=== PATIENT | male | born 1945 | race Caucasian/White ===

== ENCOUNTER 2021-07-26 17:43 | Inpatient (IN) | payer OTHER, MEDICAID, SELFPAY ==
[~2021-07-26] VITALS: Ht 185.4 cm; Wt 84.5 kg
[2021-07-26 17:50] VITALS: BP_SYST 91
--- NOTE | 2021-07-26 17:50 | NUR ---
Patient to ER bed 2 to gown for evaluation. Side rails up. Report given to Rm FONSECA.
--- NOTE | 2021-07-26 17:52 | NUR ---
ER Dr. Valencia at bedside examining patient.
[2021-07-26 19:16] LABS: BASOPHILS # (AUTO) 0.1 K/uL (0.0-0.2); BASOPHILS % (AUTO) 0.4 % (0.0-2.0); EOSINOPHILS # (AUTO) 0.1 K/uL (0.0-0.4); EOSINOPHILS % (AUTO) 0.7 % (0.0-4.0); HEMATOCRIT 36.3 % (36-54); HEMOGLOBIN 11.6 g/dL (14.0-18.0); LYMPHOCYTES # (AUTO) 0.6 K/uL (1.0-5.5); MEAN CORPUSCULAR HEMOGLOBIN 29 pg (27-31); MEAN CORPUSCULAR HGB CONC 32 % (32-36); MEAN CORPUSCULAR VOLUME 91 fL (79.0-98.0); MONOCYTES # (AUTO) 0.6 K/uL (0.0-1.0); MONOCYTES % (AUTO) 3.9 % (1.7-9.3); NEUTROPHILS # (AUTO) 14.3 K/uL (1.8-7.7); PLATELET COUNT (AUTO) 376 K/uL (130-430); RED BLOOD CELL COUNT(AUTO) 3.98 MIL/uL (4.2-6.2); WHITE BLOOD COUNT (AUTO) 15.6 K/uL (4.8-10.8)
--- NOTE | 2021-07-26 19:28 | NUR ---
Assumed total care of patient. Per baseline patient AAO x1, BIB for SOB and respiratory distress. Patient on 15L NRB with O2 sat of 100%. Patient nonverbal and withdrawals from painful stimuli. Patient has hilliard catheter placed, draining urine to gravity, bag hanging below bladder. Patient has g-tube in place. Patient has 18g to LAC. IV site patent, no signs of infiltration noted. Patient on foundry molder, VSS, tachypneic, increased work of breathing. Will continue to monitor.
[2021-07-26] MEDS ORDERED: CEFEPIME 2 GM in D5W 100 ML IV ONE (19:30)
[2021-07-26] MEDS ORDERED: VANCOMYCIN HCL 2,000 MG in NS 250 ML IV ONE (19:30)
--- NOTE | 2021-07-26 19:32 | NUR ---
Dr. Valencia at bedside for ultrasound
[2021-07-26 19:41] LABS: ALANINE AMINOTRANSFERASE 38 U/L (12-78); ANION GAP 6 (5-15); ASPARTATE AMINOTRANSFERASE 41 U/L (10-37); CALCIUM 10.5 mg/dL (8.4-11.0); POTASSIUM 4.4 mmol/L (3.5-5.1); SODIUM SERUM 128 mmol/L (136-145); TOTAL BILIRUBIN 0.7 mg/dL (0.0-1.0)
[2021-07-26 19:42] LABS: CHLORIDE 97 mmol/L (98-107); CREATININE 1.32 mg/dL (0.55-1.30); GLUCOSE 166 mg/dL (70-99); UREA NITROGEN, BLOOD 59 mg/dL (8-21)
[2021-07-26] MEDS ORDERED: NACL 0.9% 1,000 ML IV ONE (19:45)
[2021-07-26] MEDS ORDERED: CEFEPIME 1 GM/VIAL (MAXIPIME) ONE (19:45)
--- NOTE | 2021-07-26 19:51 | NUR ---
Blood cultures drawn, prior to administration of antibiotic.
--- NOTE | 2021-07-26 20:06 | NUR ---
Patient placed on nasal cannula 6L to assess how he tolerates per MD order.
--- NOTE | 2021-07-26 20:08 | NUR ---
Patient swabbed for covid and MRSA. Samples brought to the lab.
--- NOTE | 2021-07-26 20:14 | NUR ---
Patient unable to tolerate 6L nasal cannula, O2 saturation 86-88%. Patient placed back on NRB at 10L. Will continue to monitor.
--- NOTE | 2021-07-26 20:16 | NUR ---
Patient's code status is Full code paperwork completed and placed in chart.
[2021-07-26 20:24] LABS: BILIRUBIN,URINE NEGATIVE (NEGATIVE); BLOOD, URINE 2+ (NEGATIVE); CLARITY/URINE CLEAR (CLEAR); COLOR,URINE YELLOW (YELLOW); GLUCOSE,URINE NEGATIVE (NEGATIVE); KETONES,URINE NEGATIVE (NEGATIVE); LEUKOCYTE ESTERASE ,URINE 1+ (NEGATIVE); NITRITE, URINE NEGATIVE (NEGATIVE); PROTEIN URINE 1+ (NEGATIVE); UROBILINOGEN,URINE 0.2 (0.2-1.0)
--- NOTE | 2021-07-26 20:37 | NUR ---
Patient will be admitted to care of Dr. Tellez. Admitted to ICU unit. Will go to room pending. Belongings list completed. Complete and up to date summary report printed. SBAR report to be given at bedside with opportunity for questions.
[2021-07-26] MEDS ORDERED: ALBU2.5V7 INH (20:54)
[2021-07-26] MEDS ORDERED: POTA20PA30 GT (20:54)
[2021-07-26] MEDS ORDERED: SACU1TAB GT (20:54)
[2021-07-26] MEDS ORDERED: FINA5TAB11 GT (20:54)
[2021-07-26] MEDS ORDERED: CYAN500T9 GT (20:54)
[2021-07-26] MEDS ORDERED: FURO80TA86 GT (20:54)
[2021-07-26] MEDS ORDERED: MOM GT (20:54)
[2021-07-26] MEDS ORDERED: NEU300 GT (20:54)
[2021-07-26] MEDS ORDERED: DOXA2TAB GT (20:54)
[2021-07-26] MEDS ORDERED: ESCI-6 GT (20:54)
[2021-07-26] MEDS ORDERED: SPIR25TA GT (20:54)
[2021-07-26] MEDS ORDERED: PANT40TA45 GT (20:54)
[2021-07-26] MEDS ORDERED: BISA10SU61 RC (20:54)
[2021-07-26] MEDS ORDERED: MUC10RT NEB (20:54)
[2021-07-26] MEDS ORDERED: LACT1CAP79 GT (20:54)
[2021-07-26] MEDS ORDERED: ACET-73 GT (20:54)
[2021-07-26] MEDS ORDERED: ACET325C5 GT (20:54)
--- NOTE | 2021-07-26 20:55 | NUR ---
Medication reconciliation completed with information provided by [facility]. Any prior medication reconciliation on file was reviewed and corrected.
[2021-07-26] MEDS ORDERED: ONDANSETRON HCL 4 MG/2 ML VIAL IVP PRN (21:00)
[2021-07-26] MEDS ORDERED: ACETAMINOPHEN 325 MG TABLET PO PRN (21:00)
[2021-07-26] MEDS ORDERED: DOCUSATE SODIUM 100 MG CAPSULE PO PRN (21:00)
[2021-07-26] MEDS ORDERED: HYDROcodone/ACETAMIN 5-325 MG TAB (NORCO/ VICODIN) PO PRN (21:00)
[2021-07-26] MEDS ORDERED: VANCOMYCIN HCL 1000 MG/VIAL IV ONE ×2 (21:13→21:31)
[2021-07-26 21:27] LABS: FREE T4 (FREE THYROXINE) 1.1 ng/dl (0.8-1.5); PHOSPHORUS 4.6 mg/dL (2.7-4.5); THYROID STIMULATING HORMONE 0.84 uIu/mL (0.36-3.74)
[2021-07-26] MEDS: NACL 0.9% 1,000 ML IV SCH (21:34)
--- NOTE | 2021-07-26 21:34 | NUR ---
IV antibiotics and IV fluids initiated per MD orders. IV site patent. No signs of infiltration noted.
[2021-07-26 21:43] LABS: WBC,URINE 20-50 /HPF (0-3)
[2021-07-26 21:44] LABS: BACTERIA,URINE MANY /HPF (None Seen)
[2021-07-26 21:45] LABS: MUCUS,URINE None Seen /LPF (None Seen)
--- NOTE | 2021-07-26 22:13 | NUR ---
Patient resting quietly. No acute distress noted. Vital signs within normal range, on cardic monitor. IV fluids infusing at prescribed rate. Will continue to monitor.
--- NOTE | 2021-07-26 23:13 | NUR ---
Patient resting quietly. No acute distress noted. Vital signs within normal range, on cardic monitor. IV fluids infusing at prescribed rate. Will continue to monitor.
[2021-07-27] VITALS (24 sets, daily range): BP systolic 84–131
--- NOTE | 2021-07-27 00:52 | NUR ---
Patient repositioned in bed, head of bed elevated, patient on intake worker, VSS, breathing even and unlabored, tachypneic. No signs of acute distress noted.
--- NOTE | 2021-07-27 01:00 | NUR ---
Patient will be going to ICU 3
--- NOTE | 2021-07-27 01:26 | NUR ---
Transfer to ICU via ACLS protocol. Licensed nurse present. IV present no signs or symptoms of infiltration.
--- NOTE | 2021-07-27 05:00 | NUR ---
PATIENT NOTED TO BE HAVING A HYPOXIC EVENT WITH UNCOORDINATED JERKING MOVEMENTS DOMINANT TO THE RIGHT SIDE FOR APPROXIMATELY 1 MINUTE DURING LINEN CHANGE STATUS POST BM. WILL RECOMMEND NEURO CONSULT TO PCP. CONTINUED TO MONITOR FOR REPEAT EVENT.
--- NOTE | 2021-07-27 05:41 | NUR ---
Nutrition Update Omar Scale 13 noted. Pt admitted for Hypoxia Diet: No diet order BMI: 23.5 kg/m2 RD to follow per nutrition care standards.
[2021-07-27] MEDS: NACL 0.9% 1,000 ML IV SCH ×2 (07:00→12:15)
--- NOTE | 2021-07-27 07:15 | NUR ---
Received report from endorsing maintenance technician 3rd shift RN for continuity of care. Patient lying on bed with IVF of NS @100 mL/hr. Nonrebreather mask @15L. Powell catheter in place draining to gravity, rosalinda urine in color. Gtube clamped. Checked vital signs temperature 96.1, respiration 34, heart rate 70, blood pressure 93/50, SpO2 100%. Bed locked @ lowest position, fall and safety precaution is in place. Will continue to monitor.
--- NOTE | 2021-07-27 07:15 | NUR ---
received report from endorsing electric motor tester RN for continuity of care, patient lying on bed with an IVF of NS @ 100 mls/hr.vital signs T 96.1, heart rate 71, respiratory rate 29, oxygen saturation 100 and blood pressure 88/55. on Non rebreather mask 15L. Powell catheter in place draining to gravity, yellow urine in color.bed locked at lowest position. fall and safety precaution in place.
[2021-07-27 07:48] LABS: BASOPHILS # (AUTO) 0.1 K/uL (0.0-0.2); BASOPHILS % (AUTO) 0.5 % (0.0-2.0); EOSINOPHILS # (AUTO) 0.1 K/uL (0.0-0.4); EOSINOPHILS % (AUTO) 0.9 % (0.0-4.0); LYMPHOCYTES # (AUTO) 0.6 K/uL (1.0-5.5); LYMPHOCYTES % (AUTO) 4.4 % (20.5-51.5); MEAN CORPUSCULAR HEMOGLOBIN 29 pg (27-31); MEAN CORPUSCULAR HGB CONC 32 % (32-36); MEAN CORPUSCULAR VOLUME 90 fL (79.0-98.0); MONOCYTES # (AUTO) 0.5 K/uL (0.0-1.0); MONOCYTES % (AUTO) 3.9 % (1.7-9.3); NEUTROPHILS # (AUTO) 11.7 K/uL (1.8-7.7); NEUTROPHILS % (AUTO) 90.3 % (40.0-70.0); PLATELET COUNT (AUTO) 306 K/uL (130-430); RED BLOOD CELL COUNT(AUTO) 3.46 MIL/uL (4.2-6.2); RED CELL DISTRIBUTION WIDTH 18.1 % (9.0-15.0)
[2021-07-27 08:25] LABS: ALANINE AMINOTRANSFERASE 28 U/L (12-78); ALBUMIN 1.6 g/dL (3.4-4.8); ANION GAP 10 (5-15); ASPARTATE AMINOTRANSFERASE 31 U/L (10-37); CALCIUM 9.8 mg/dL (8.4-11.0); CHLORIDE 103 mmol/L (98-107); CREATININE 1.12 mg/dL (0.55-1.30); GLUCOSE 100 mg/dL (70-99); POTASSIUM 3.8 mmol/L (3.5-5.1); SODIUM SERUM 135 mmol/L (136-145); TOTAL BILIRUBIN 0.6 mg/dL (0.0-1.0); UREA NITROGEN, BLOOD 53 mg/dL (8-21)
--- NOTE | 2021-07-27 08:53 | NUR ---
CONSULTATION PAGED/CALLED Reason for Consultation: sepsis, acute kidney injury Person Who was Notified: exchange Consulting Physician: Dr. Stratton Dry Roller Specialty: nephrology Ordering Physician: Eunice
[2021-07-27] MEDS ORDERED: MILK OF MAGNESIA 30 ML UDC GT SCH (09:15)
[2021-07-27] MEDS ORDERED: NON-FORMULARY MEDICATION (Acetaminophen 2 CAP) GT PRN (09:15)
[2021-07-27] MEDS ORDERED: BISACODYL 10 MG/SUPPOSITORY RC PRN (09:15)
[2021-07-27] MEDS ORDERED: ONDANSETRON HCL 4 MG/2 ML VIAL IVP PRN (09:15)
[2021-07-27] MEDS ORDERED: LORazepam 2 MG/ML VIAL IVP PRN (09:15)
[2021-07-27] MEDS: CEFEPIME 2 GM in D5W 100 ML IV SCH (12:15)
[2021-07-27] MEDS: NOREPINEPHRINE BITARTRATE 4 MG in NS 246 ML IV PRN (13:25)
[2021-07-27] MEDS: NORMAL SALINE 5 ML DISP.SYRIN IVF SCH ×2 (14:00→21:20)
[2021-07-27] MEDS ORDERED: NORMAL SALINE 5 ML DISP.SYRIN IVF SCH (14:00)
[2021-07-27] MEDS: ALBUTEROL SULFATE 0.083% 2.5 MG/3 ML VIAL.NEB INH SCH ×2 (14:46→19:54)
--- NOTE | 2021-07-27 14:50 | NUR ---
Dr. Emerson is at bedside assessing the patient, verbal reports given.
--- NOTE | 2021-07-27 17:27 | NUR ---
Dr. Arvizu at bedside assessing the patient.
[2021-07-27] MEDS: GABAPENTIN 300 MG CAPSULE GT SCH (18:34)
[2021-07-27] MEDS: SACUBITRIL/VALSARTAN 24 MG-26 MG 1 TABLET PO SCH (21:20)
[2021-07-28] VITALS (27 sets, daily range): BP systolic 90–127
[2021-07-28] MEDS: NACL 0.9% 1,000 ML IV SCH ×2 (03:00→12:46)
--- NOTE | 2021-07-28 03:02 | NUR ---
PAGED FOR ORDERS DIALED: [phone] SPOKE TO: BERNARDO
--- NOTE | 2021-07-28 04:12 | NUR ---
PAGED MD GARNICA RUG SETTER VELVET TO REPORT HYPOXIC EVENT NOTED IN PATIENT. SPO2 IN THE MID TO LOW 80'S. STAT ABG RESULTS REPORTED. ORDERED BIPAP WITH SETTINGS AT 12/5. NO FURTHER ORDERS. WILL CONTINUE TO MONITOR CLOSELY.
[2021-07-28] MEDS: NORMAL SALINE 5 ML DISP.SYRIN IVF SCH ×3 (05:16→21:49)
[2021-07-28 06:49] LABS: BASOPHILS % (AUTO) 0.3 % (0.0-2.0); EOSINOPHILS # (AUTO) 0.1 K/uL (0.0-0.4); EOSINOPHILS % (AUTO) 0.5 % (0.0-4.0); HEMATOCRIT 33.4 % (36-54); HEMOGLOBIN 10.7 g/dL (14.0-18.0); LYMPHOCYTES # (AUTO) 0.5 K/uL (1.0-5.5); LYMPHOCYTES % (AUTO) 3.5 % (20.5-51.5); MEAN CORPUSCULAR HEMOGLOBIN 29 pg (27-31); MEAN CORPUSCULAR HGB CONC 32 % (32-36); MEAN CORPUSCULAR VOLUME 91 fL (79.0-98.0); MONOCYTES # (AUTO) 0.5 K/uL (0.0-1.0); MONOCYTES % (AUTO) 3.5 % (1.7-9.3); NEUTROPHILS # (AUTO) 12.5 K/uL (1.8-7.7); NEUTROPHILS % (AUTO) 92.2 % (40.0-70.0); PLATELET COUNT (AUTO) 358 K/uL (130-430); RED BLOOD CELL COUNT(AUTO) 3.67 MIL/uL (4.2-6.2); RED CELL DISTRIBUTION WIDTH 17.9 % (9.0-15.0); WHITE BLOOD COUNT (AUTO) 13.6 K/uL (4.8-10.8)
[2021-07-28 07:14] LABS: ALANINE AMINOTRANSFERASE 23 U/L (12-78); ALBUMIN 1.7 g/dL (3.4-4.8); ANION GAP 10 (5-15); ASPARTATE AMINOTRANSFERASE 32 U/L (10-37); CALCIUM 10.4 mg/dL (8.4-11.0); CHLORIDE 106 mmol/L (98-107); CREATININE 0.98 mg/dL (0.55-1.30); GLUCOSE 100 mg/dL (70-99); POTASSIUM 3.9 mmol/L (3.5-5.1); SODIUM SERUM 138 mmol/L (136-145); TOTAL BILIRUBIN 0.5 mg/dL (0.0-1.0); UREA NITROGEN, BLOOD 43 mg/dL (8-21)
[2021-07-28] MEDS: ALBUTEROL SULFATE 0.083% 2.5 MG/3 ML VIAL.NEB INH SCH ×3 (07:25→19:10)
--- NOTE | 2021-07-28 07:26 | NUR ---
received bedside report from endorsing table games shift manager RN for continuity of care, patient lying on bed with an IVF of NS @ 100, Levophed @ 0.08 mcg/kg/min on IPAP 07/04 rate of 20, 100, patient vital signs heart rate 78, respiratory rate 39, oxygen saturation 96 and blood pressure 110/54. Powell catheter in place rosalinda urine , bed locked at lowest position, fall and safety precaution in place, will continue to monitor.
[2021-07-28] MEDS: ACETYLCYSTEINE 10% 4 ML VIAL (RT) INH SCH (07:28)
--- NOTE | 2021-07-28 07:28 | NUR ---
RCV'D PT ON BIPAP. CALLED MD GARNICA TO VERIFY THAT MD CARCAMO WANTS PT ON BIPAP. PT DOES NOT COMMUNICATE. RN TRENT IN ROOM . PT JUST RESPONSIVE TO PAINFUL STIMULI. WAITING FOR CALL BACK.
--- NOTE | 2021-07-28 08:09 | NUR ---
Dr. Arvizu is at the bedside assessing the patient,,changed from BIPAP to non rebreather mask at [address] Arvizu. patient vitals heart rate 74, oxygen saturation 100, respiratory rate 26, blood pressure 132/67
--- NOTE | 2021-07-28 08:09 | NUR ---
MD GIBBS IN ROOM WITH PATIENT. PER MD GIBBS TO TAKE BIPAP OFF PATIENT IS NOT AWAKE AND IS ALTERED. RAYMUNDO NEWMAN IN ROOM WELL TAKING ORDERS. PER MD GIBBS PT MIGHT ASPIRATE ON BIPAP. PLACED PT ON 15 L NRB. NEW ORDER TO GET AN ABG. WILL FOLLOW WITH ORDER.
[2021-07-28] MEDS: CITALOPRAM HYDROBROMIDE 20 MG TABLET GT SCH (08:38)
[2021-07-28] MEDS: DOXAZOSIN MESYLATE 2 MG TABLET GT SCH (08:38)
[2021-07-28] MEDS: LACTOBACILLUS RHAMNOSUS GG 1 CAP CAPSULE GT SCH (08:38)
[2021-07-28] MEDS: PANTOPRAZOLE SODIUM 40 MG TAB GT SCH (08:39)
[2021-07-28] MEDS: FINASTERIDE 5 MG TABLET (PROSCAR) GT SCH (08:50)
[2021-07-28] MEDS: SACUBITRIL/VALSARTAN 24 MG-26 MG 1 TABLET PO SCH ×2 (08:51→21:49)
[2021-07-28] MEDS ORDERED: FUROSEMIDE 80 MG TABLET GT SCH (09:00)
[2021-07-28] MEDS ORDERED: POTASSIUM CHLORIDE 20 MEQ/PKT PACKET GT SCH (09:00)
[2021-07-28] MEDS ORDERED: ESCITALOPRAM OXALATE 10 MG TABLET GT SCH (09:00)
[2021-07-28] MEDS ORDERED: SPIRONOLACTONE 25 MG TABLET (ALDACTONE) GT SCH (09:00)
--- NOTE | 2021-07-28 09:24 | NUR ---
ABG ORDERED BY MD GIBBS DONE. CRITICAL VALUES REPORTED TO RN. PT ON 100% FIO2 NRB MASK. WILL CONTINUE TO MONITOR.
--- NOTE | 2021-07-28 09:45 | NUR ---
RN GOT CALL BACK FROM MD GIBBS REGARDING ABG RESULTS. PER MD GIBBS NO NEW ORDERS AND KEEP PT ON NRB AND TITRATE FIO2 TOLERATED. WILL CONTINUE TO MONITOR PATIENT.
[2021-07-28] MEDS: CYANOCOBALAMIN 1000 mCg TABLET GT SCH (10:23)
[2021-07-28] MEDS: CEFEPIME 2 GM in D5W 100 ML IV SCH (11:16)
[2021-07-28] MEDS: NOREPINEPHRINE BITARTRATE 4 MG in NS 246 ML IV PRN (11:28)
[2021-07-28 13:23] LABS: ERYTHROCYTE SEDIMENTATION RATE 99 MM/HR (0-15)
--- NOTE | 2021-07-28 15:15 | NUR ---
RN NOTES DR. GARNICA SPOKE TO DAUGHTER ON THE PHONE RE: CODE STATUS DAUGHTER CONSENTED TO INTUBATION. WILL REQUEST ER/MD TO INTUBATE PATIENT.
[2021-07-28] MEDS ORDERED: PROPOFOL DRIP 100 ML IV PRN (15:30)
--- NOTE | 2021-07-28 15:45 | NUR ---
patient intubated at 1545 with 7.5 24in the Lipline . On AC rate of 16, tidal volume 500, 50% and PEEP of 5., patient vital signs heart rate 79, respiratory rate 25, oxygen saturation 93, and blood pressure 105/54. unable to take photographs of the wound because of patient condition, started to desaturated when repositioning .
--- NOTE | 2021-07-28 15:45 | NUR ---
PT INTUBATED WITH 7.5 A T24 AT [facility]. ETT IS IN PLACE AND SECURED WITH ANCHOR-FAST. ETT PLACEMENT CONFIRMED BY COLOR CHANGE, BREATH SOUNDS, AND CXR. PT INTUBATED BY DR BOWIE. RN RE AND RAYMUNDO SUN AT BEDSIDE. RT DEISI AND RT JOYCELYN AT BEDSIDE. VENT SETTINGS CHARTED. VENT CONNECTED TO RED OUTLET. ALARMS AUDIBLE. AMBU BAG AT BEDSIDE. NO DISTRESS NOTED. SPUTUM SAMPLE SENT TO LAB. WILL CONTINUE TO MONITOR PATIENT.
[2021-07-28 16:24] LABS: C-REACTIVE PROTEIN QUANT 26.2 mg/dL (0-0.5)
--- NOTE | 2021-07-28 16:28 | NUR ---
Wound Evaluation Attempted: Wound evaluation attempted, but was held secondary to hemodynamic instability and oxygen desaturation during turning per RAYMUNDO Barrow. Patient was intubated around 1545 per Brooks.
--- NOTE | 2021-07-28 16:55 | NUR ---
phone call to Dr. Ortiz about the laboratory result Positive MRSA of the nares, waiting for callback
[2021-07-28] MEDS: GABAPENTIN 300 MG CAPSULE GT SCH (17:26)
--- NOTE | 2021-07-28 18:13 | NUR ---
PAGED FOR ORDERS SPOKE TO: IRINEO
--- NOTE | 2021-07-28 18:18 | NUR ---
Dietitian Recommendations * When medically stable, initiate Vital AF 1.2 at 70 ml/hr, Alfonzo BID, Free Water Flush: 100 ml Q6h via GT Provides 2196 kcal, 126g protein, 1362 ml free water, and meeting 91% estimated calories need lower end, 104% estimated protein needs lower end. Please refer to nutrition assessment for details. Addendum: 07/28/21 at [address] Correction: * When medically stable, initiate Vital AF 1.2 at 70 ml/hr, Alfonzo BID, Free Water Flush: 100 ml Q6h via GT Provides 2196 kcal, 131g protein, 1362 ml free water, and meeting 91% estimated calories need lower end, 108% estimated protein needs lower end.
[2021-07-28] MEDS ORDERED: ETOMIDATE 20 MG/ 10 ML VIAL (AMIDATE) IVP ONE (19:01)
[2021-07-28] MEDS ORDERED: VECURONIUM BROMIDE 10 MG/VIAL (NORCURON) IV ONE (19:01)
--- NOTE | 2021-07-28 19:35 | NUR ---
PM SHIFT ASSESSMENT Patient is sedated on the vent, tolerating current vent settings. SR on monitor. Skin warm and dry. IV infusing to PIV, no S/S of infiltration. Powell catheter in place and draining to gravity. Safety precautions in place, call light within reach. Will continue to monitor.
--- NOTE | 2021-07-28 20:32 | NUR ---
PAGED FOR ORDERS SPOKE TO: GUEVARA
[2021-07-28] MEDS: LINEZOLID 300 ML IV SCH (21:49)
[2021-07-29] VITALS (28 sets, daily range): BP systolic 84–121
[2021-07-29 06:32] LABS: ANION GAP 11 (5-15); CALCIUM 10.6 mg/dL (8.4-11.0); CHLORIDE 104 mmol/L (98-107); CREATININE 1.16 mg/dL (0.55-1.30); GLUCOSE 91 mg/dL (70-99); POTASSIUM 3.5 mmol/L (3.5-5.1); SODIUM SERUM 137 mmol/L (136-145); UREA NITROGEN, BLOOD 45 mg/dL (8-21)
[2021-07-29 06:33] LABS: BASOPHILS # (AUTO) 0.1 K/uL (0.0-0.2); EOSINOPHILS # (AUTO) 0.2 K/uL (0.0-0.4); EOSINOPHILS % (AUTO) 2.1 % (0.0-4.0); HEMOGLOBIN 9.2 g/dL (14.0-18.0); LYMPHOCYTES # (AUTO) 0.7 K/uL (1.0-5.5); LYMPHOCYTES % (AUTO) 7.3 % (20.5-51.5); MEAN CORPUSCULAR HEMOGLOBIN 30 pg (27-31); MEAN CORPUSCULAR HGB CONC 33 % (32-36); MEAN CORPUSCULAR VOLUME 90 fL (79.0-98.0); MONOCYTES # (AUTO) 0.4 K/uL (0.0-1.0); MONOCYTES % (AUTO) 3.9 % (1.7-9.3); NEUTROPHILS # (AUTO) 8.4 K/uL (1.8-7.7); NEUTROPHILS % (AUTO) 85.7 % (40.0-70.0); PLATELET COUNT (AUTO) 339 K/uL (130-430); RED BLOOD CELL COUNT(AUTO) 3.11 MIL/uL (4.2-6.2); RED CELL DISTRIBUTION WIDTH 17.9 % (9.0-15.0); WHITE BLOOD COUNT (AUTO) 9.8 K/uL (4.8-10.8)
[2021-07-29] MEDS: NORMAL SALINE 5 ML DISP.SYRIN IVF SCH ×3 (06:37→22:29)
[2021-07-29] MEDS: ACETYLCYSTEINE 10% 4 ML VIAL (RT) INH SCH (07:21)
[2021-07-29] MEDS: ALBUTEROL SULFATE 0.083% 2.5 MG/3 ML VIAL.NEB INH SCH ×4 (07:21→19:20)
[2021-07-29 08:31] LABS: C-REACTIVE PROTEIN QUANT 33.8 mg/dL (0-0.5)
[2021-07-29] MEDS: DOXAZOSIN MESYLATE 2 MG TABLET GT SCH (09:00)
[2021-07-29] MEDS: LACTOBACILLUS RHAMNOSUS GG 1 CAP CAPSULE GT SCH (09:56)
[2021-07-29] MEDS: CITALOPRAM HYDROBROMIDE 20 MG TABLET GT SCH (09:56)
[2021-07-29] MEDS: PANTOPRAZOLE SODIUM 40 MG TAB GT SCH (09:56)
[2021-07-29] MEDS: LINEZOLID 300 ML IV SCH ×2 (09:59→20:19)
[2021-07-29] MEDS: CYANOCOBALAMIN 1000 mCg TABLET GT SCH (09:59)
[2021-07-29] MEDS: FINASTERIDE 5 MG TABLET (PROSCAR) GT SCH (09:59)
[2021-07-29] MEDS ORDERED: FUROSEMIDE 20 MG/2 ML VIAL IVP ONE (10:00)
[2021-07-29] MEDS: D5/0.45 NS 1,000 ML IV SCH ×2 (10:00→20:10)
[2021-07-29 11:23] LABS: ERYTHROCYTE SEDIMENTATION RATE 113 MM/HR (0-15)
[2021-07-29] MEDS: CEFEPIME 2 GM in D5W 100 ML IV SCH (11:33)
--- NOTE | 2021-07-29 19:44 | NUR ---
Patient daughter is now is POA. She lives in [place]. Multiple attempts made to reach her to obtain consent for PICC and other treatment modalities recommended by physician. To no avail, was unable to leave message as this options was not available.
--- NOTE | 2021-07-29 20:10 | NUR ---
BP LOW 88/47 LEVOPHED STARTED. AT 0.01 MCG/KG/MIN. THEN GRADUALLY TITRATED
[2021-07-29] MEDS: GABAPENTIN 300 MG CAPSULE GT SCH (20:11)
[2021-07-29] MEDS: FUROSEMIDE 20 MG/2 ML VIAL IVP SCH (20:19)
[2021-07-29] MEDS: NOREPINEPHRINE BITARTRATE 4 MG in NS 246 ML IV PRN (20:23)
[2021-07-30] VITALS (34 sets, daily range): BP systolic 72–164
--- NOTE | 2021-07-30 01:30 | NUR ---
0130 picc line nurse came inserte MICH PICC 2 LUMEN. CXR CONFIRMED.
--- NOTE | 2021-07-30 01:32 | NUR ---
DAUGHTER Spoke to patients daughter, consent given for PICCLINE and Bronchoscopy. Phone number also updated in the chart and email provided for further contact information. RN notified and piccline nurse here in unit.
[2021-07-30] MEDS: NORMAL SALINE 5 ML DISP.SYRIN IVF SCH ×3 (06:00→22:50)
--- NOTE | 2021-07-30 06:00 | NUR ---
0130 TUBE FEEDING HELP KEPT NPO POST MIDNIGHT FOR BRONCOSCOPY IN AM. O500 ALL CARES DONE, VSS AFEBRILE. CHG BATH DONE COMPLETE LINEN CHANGED SKIN CARE DONE.
[2021-07-30 06:56] LABS: BASOPHILS % (AUTO) 0.5 % (0.0-2.0); EOSINOPHILS # (AUTO) 0.3 K/uL (0.0-0.4); EOSINOPHILS % (AUTO) 3.4 % (0.0-4.0); HEMATOCRIT 28.9 % (36-54); HEMOGLOBIN 9.4 g/dL (14.0-18.0); LYMPHOCYTES # (AUTO) 0.6 K/uL (1.0-5.5); LYMPHOCYTES % (AUTO) 6.5 % (20.5-51.5); MEAN CORPUSCULAR HEMOGLOBIN 29 pg (27-31); MEAN CORPUSCULAR HGB CONC 33 % (32-36); MEAN CORPUSCULAR VOLUME 89 fL (79.0-98.0); MONOCYTES # (AUTO) 0.4 K/uL (0.0-1.0); MONOCYTES % (AUTO) 4.5 % (1.7-9.3); NEUTROPHILS # (AUTO) 7.5 K/uL (1.8-7.7); NEUTROPHILS % (AUTO) 85.1 % (40.0-70.0); PLATELET COUNT (AUTO) 286 K/uL (130-430); RED BLOOD CELL COUNT(AUTO) 3.25 MIL/uL (4.2-6.2); RED CELL DISTRIBUTION WIDTH 17.6 % (9.0-15.0); WHITE BLOOD COUNT (AUTO) 8.8 K/uL (4.8-10.8)
[2021-07-30 07:12] LABS: ALANINE AMINOTRANSFERASE 15 U/L (12-78); ALBUMIN 1.3 g/dL (3.4-4.8); ANION GAP 8 (5-15); ASPARTATE AMINOTRANSFERASE 24 U/L (10-37); CHLORIDE 104 mmol/L (98-107); CREATININE 0.98 mg/dL (0.55-1.30); GLUCOSE 148 mg/dL (70-99); SODIUM SERUM 134 mmol/L (136-145); TOTAL BILIRUBIN 0.3 mg/dL (0.0-1.0); UREA NITROGEN, BLOOD 34 mg/dL (8-21)
[2021-07-30] MEDS: ALBUTEROL SULFATE 0.083% 2.5 MG/3 ML VIAL.NEB INH SCH ×4 (07:32→21:48)
[2021-07-30] MEDS: ACETYLCYSTEINE 10% 4 ML VIAL (RT) INH SCH (07:33)
[2021-07-30] MEDS: PANTOPRAZOLE SODIUM 40 MG TAB GT SCH (09:00)
[2021-07-30] MEDS: CITALOPRAM HYDROBROMIDE 20 MG TABLET GT SCH (09:00)
[2021-07-30] MEDS: DOXAZOSIN MESYLATE 2 MG TABLET GT SCH (09:00)
[2021-07-30] MEDS ORDERED: FUROSEMIDE 20 MG/2 ML VIAL IVP SCH (09:00)
[2021-07-30 09:10] LABS: C-REACTIVE PROTEIN QUANT 14.4 mg/dL (0-0.5)
--- NOTE | 2021-07-30 09:30 | NUR ---
PT'S SPO2 100% DECREASED FIO2 TO 45%. SPO2 99% NO SOB OR DISTRESS NOTED. RN AWARE.
[2021-07-30 09:34] LABS: POTASSIUM 2.8 mmol/L (3.5-5.1)
[2021-07-30] MEDS ORDERED: LIDOCAINE 2% JELLY UROJECT 10 ML MM ONE (09:43)
[2021-07-30] MEDS ORDERED: LIDOCAINE 1%, 20 ML MDV 0 ML ONE (09:45)
[2021-07-30] MEDS: LINEZOLID 300 ML IV SCH (10:00)
[2021-07-30] MEDS ORDERED: POTASSIUM CHLORIDE 20 MEQ/PKT PACKET PO ONE ×2 (10:00→13:00)
[2021-07-30] MEDS ORDERED: NOREPINEPHRINE 4 MG/4 ML VIAL IV ONE (10:09)
--- NOTE | 2021-07-30 10:10 | NUR ---
Dr Emerson cancelled bronchoscopy scheduled for today due to pt's condition low blood pressure irregular HR and rhythm.
[2021-07-30] MEDS: FUROSEMIDE 20 MG/2 ML VIAL IVP SCH ×2 (10:21→21:19)
[2021-07-30] MEDS: NOREPINEPHRINE BITARTRATE 4 MG in NS 246 ML IV PRN (10:29)
[2021-07-30] MEDS ORDERED: MAGNESIUM SULFATE 50 ML IV ONE (10:30)
[2021-07-30] MEDS ORDERED: KCL 20 mEq in 100 mL (PREMIX) 100 ML IV ONE (10:30)
[2021-07-30] MEDS: CYANOCOBALAMIN 1000 mCg TABLET GT SCH (10:32)
[2021-07-30] MEDS: FINASTERIDE 5 MG TABLET (PROSCAR) GT SCH (10:33)
[2021-07-30] MEDS: D5/0.45 NS 1,000 ML IV SCH ×2 (10:34→15:15)
--- NOTE | 2021-07-30 10:40 | NUR ---
PT'S SPO2 99% DECREASED PEEP TO 7 CMH2O. SPO2 98% NO SOB OR DISTRESS NOTED. RN AWARE.
[2021-07-30] MEDS: LACTOBACILLUS RHAMNOSUS GG 1 CAP CAPSULE GT SCH (10:44)
--- NOTE | 2021-07-30 11:37 | NUR ---
Pt's daughter called from [facility] updates given over the phone by this RN and urology nurse Dr Arvizu, pt now on modified code no CPR POLST in chart signed by MD'S -
[2021-07-30] MEDS ORDERED: AMIODARONE HCL 150 MG in D5W 100 ML IV ONE (11:45)
[2021-07-30] MEDS ORDERED: NOREPINEPHRINE BITARTRATE 8 MG in D5W 242 ML IV PRN (12:00)
[2021-07-30] MEDS ORDERED: COMMUNICATION ORDER XX ONE (12:00)
[2021-07-30] MEDS ORDERED: AMIODARONE HCL 450 MG in D5W 241 ML IV SCH (12:00)
--- NOTE | 2021-07-30 12:06 | NUR ---
PT'S SPO2 98% DECREASED PEEP TO 6 CMH2O. SPO2 97% NO SOB OR DISTRESS NOTED. RN AWARE.
[2021-07-30 12:11] LABS: ERYTHROCYTE SEDIMENTATION RATE 101 MM/HR (0-15)
--- NOTE | 2021-07-30 12:42 | NUR ---
Dr Arvizu at the bedside updates on pt's condition, mentioned irregular HR rhythm order received to start pt on AMIODARONE drip.
[2021-07-30] MEDS: CEFEPIME 2 GM in D5W 100 ML IV SCH (12:53)
[2021-07-30] MEDS: NOREPINEPHRINE BITARTRATE 8 MG in D5W 242 ML IV PRN ×2 (13:19→22:49)
[2021-07-30] MEDS: VANCOMYCIN HCL 1,000 MG in NS 250 ML IV SCH (13:22)
--- NOTE | 2021-07-30 14:10 | NUR ---
[employer] candelario video called with pt's daughter at the bedside and she was grateful for the opportunity to see her father.
[2021-07-30] MEDS: GABAPENTIN 300 MG CAPSULE GT SCH (17:05)
[2021-07-30 18:13] LABS: ANION GAP 6 (5-15); CALCIUM 9.9 mg/dL (8.4-11.0); CHLORIDE 105 mmol/L (98-107); CREATININE 0.89 mg/dL (0.55-1.30); GLUCOSE 192 mg/dL (70-99); POTASSIUM 4.1 mmol/L (3.5-5.1); SODIUM SERUM 134 mmol/L (136-145); UREA NITROGEN, BLOOD 29 mg/dL (8-21)
[2021-07-30] MEDS ORDERED: AMIODARONE HCL 450 MG/9 ML VIAL IV ONE (19:39)
--- NOTE | 2021-07-30 19:40 | NUR ---
Change of shift report to Maryana RN updates at the bedside, ventilator settings, pt's condition, potassium today was 2.8 covered with 100meq repeat lab now 4.1, ongoing drips levophed @ 0.2mcgs/kg/min. Amiodarone changed to 0.5mcg/min 16.33, D5.45NS @100CC. V paced on the monitor vitals signs stable tolerating all care.
--- NOTE | 2021-07-30 20:30 | NUR ---
PATIENT WAS ACCEPTED AND ASESS DONE , PATIENT ON TWO DRIP AMIODARONE AND LEVOPHED NOTICE BP WAS HI 170/100 WILL WEAN THE LEVOPHED DRIP AMICDARONE DRIP IS 0.5 MG TIME 18 HR PRE PROTOCOL PATENR HEART RATE VPACED ALSO HAS AND DEFIBELLATE INPLANT RATE 70 WITH OCCASIONAL PVC STABLE LEVOPHED WEAN DOWN TO 0.17 AND PATEN HAS AN TUBE FEEDING OF VITAL AT 30 ML /HR PATENT , PATIENT IS STABLE
[2021-07-31] VITALS (24 sets, daily range): BP systolic 91–157
[2021-07-31] MEDS: D5/0.45 NS 1,000 ML IV SCH ×2 (02:00→21:14)
--- NOTE | 2021-07-31 02:00 | NUR ---
LEVOPHED DRIP WEAN DOWN TO 0.14 MCG STABLE ALL OTHER IVF STABLE AND PATENT
[2021-07-31] MEDS: VANCOMYCIN HCL 1,000 MG in NS 250 ML IV SCH ×2 (02:03→13:36)
--- NOTE | 2021-07-31 04:00 | NUR ---
PATIENT WAS GIVEN AN BATH WITH STEWART CARE NOTICE PATIENT HAD REDNESS AROUND THE SACARL/BUTTOCK DRESSING IN PLACE SCROTUM IS SWOLLEN NO SKIN BREAK DOWM , STABLE
[2021-07-31] MEDS: NORMAL SALINE 5 ML DISP.SYRIN IVF SCH ×3 (06:00→21:15)
--- NOTE | 2021-07-31 06:00 | NUR ---
LEVOPHED DRIP DOWN TO 0.11 MCG BP 140/80 STABLE TOLERATE THE CHANGES STABLE
--- NOTE | 2021-07-31 06:30 | NUR ---
LEVOPHED DRIP IS OFF PATIENT IS STABLE RESTING NO CHANGE WITH PLAN OF CARE WILL CONTINUED TO MONITOR CLOESLY STABLE
[2021-07-31] MEDS: ALBUTEROL SULFATE 0.083% 2.5 MG/3 ML VIAL.NEB INH SCH ×3 (07:52→15:59)
[2021-07-31] MEDS: ACETYLCYSTEINE 10% 4 ML VIAL (RT) INH SCH (07:52)
[2021-07-31 07:55] LABS: ALANINE AMINOTRANSFERASE 20 U/L (12-78); ALBUMIN 1.4 g/dL (3.4-4.8); ANION GAP 9 (5-15); ASPARTATE AMINOTRANSFERASE 25 U/L (10-37); CALCIUM 9.5 mg/dL (8.4-11.0); CHLORIDE 104 mmol/L (98-107); CREATININE 0.85 mg/dL (0.55-1.30); GLUCOSE 186 mg/dL (70-99); POTASSIUM 3.5 mmol/L (3.5-5.1); SODIUM SERUM 133 mmol/L (136-145); TOTAL BILIRUBIN 0.4 mg/dL (0.0-1.0); UREA NITROGEN, BLOOD 23 mg/dL (8-21)
--- NOTE | 2021-07-31 08:02 | NUR ---
INITIAL SHIFT REPORT RECEIVED FROM NIGHT RN FOR CONTINUATION OF CARE
[2021-07-31 08:09] LABS: BASOPHILS # (AUTO) 0.1 K/uL (0.0-0.2); BASOPHILS % (AUTO) 0.8 % (0.0-2.0); EOSINOPHILS # (AUTO) 0.3 K/uL (0.0-0.4); HEMATOCRIT 27.1 % (36-54); HEMOGLOBIN 8.9 g/dL (14.0-18.0); LYMPHOCYTES # (AUTO) 0.8 K/uL (1.0-5.5); LYMPHOCYTES % (AUTO) 7.4 % (20.5-51.5); MEAN CORPUSCULAR HEMOGLOBIN 30 pg (27-31); MEAN CORPUSCULAR HGB CONC 33 % (32-36); MEAN CORPUSCULAR VOLUME 90 fL (79.0-98.0); MONOCYTES # (AUTO) 0.4 K/uL (0.0-1.0); MONOCYTES % (AUTO) 4.3 % (1.7-9.3); NEUTROPHILS # (AUTO) 8.8 K/uL (1.8-7.7); NEUTROPHILS % (AUTO) 84.5 % (40.0-70.0); PLATELET COUNT (AUTO) 305 K/uL (130-430); RED BLOOD CELL COUNT(AUTO) 3.01 MIL/uL (4.2-6.2); RED CELL DISTRIBUTION WIDTH 17.8 % (9.0-15.0); WHITE BLOOD COUNT (AUTO) 10.4 K/uL (4.8-10.8)
[2021-07-31] MEDS: CITALOPRAM HYDROBROMIDE 20 MG TABLET GT SCH (08:22)
[2021-07-31] MEDS: PANTOPRAZOLE SODIUM 40 MG TAB GT SCH (08:22)
[2021-07-31] MEDS: LACTOBACILLUS RHAMNOSUS GG 1 CAP CAPSULE GT SCH (08:23)
[2021-07-31] MEDS: DOXAZOSIN MESYLATE 2 MG TABLET GT SCH (08:23)
[2021-07-31] MEDS: CYANOCOBALAMIN 1000 mCg TABLET GT SCH (08:23)
[2021-07-31] MEDS: FUROSEMIDE 20 MG/2 ML VIAL IVP SCH ×2 (08:24→21:13)
[2021-07-31] MEDS: FINASTERIDE 5 MG TABLET (PROSCAR) GT SCH (09:00)
[2021-07-31] MEDS: CEFEPIME 2 GM in D5W 100 ML IV SCH (10:42)
--- NOTE | 2021-07-31 11:30 | NUR ---
RT NOTES FIO2 to 0.35 per titration order. will monitor pt. RN aware.
[2021-07-31] MEDS: NOREPINEPHRINE BITARTRATE 8 MG in D5W 242 ML IV PRN (11:46)
--- NOTE | 2021-07-31 14:25 | NUR ---
UPDATED PT'S HR FOR THE PAST HOURS IS STABLE, UNDER 90 BPM (HR 70-92 BPM). RECEIVED ORDER FROM SEISMOGRAPH OPERATOR HELPER (Pramod PITTS) TO TURN OFF AMIODARONE DRIP.
--- NOTE | 2021-07-31 16:00 | NUR ---
RT NOTES FIO2 to 0.30. Rn aware
--- NOTE | 2021-07-31 16:24 | NUR ---
NURSING CARES ALL CARES GIVEN & REPOSITIONED WELL. PT ALSO HAD AN BM
[2021-07-31] MEDS: GABAPENTIN 300 MG CAPSULE GT SCH (17:59)
--- NOTE | 2021-07-31 19:35 | NUR ---
Opening Received report from RN. Pt obtunded, intubated on FiO2 30%, no sedation, no acute signs of distress or pain. Currently on levophed drip. Tube feeding running 30 ml/hr, no residual noted. Powell draining urine to gravity.
--- NOTE | 2021-07-31 19:49 | NUR ---
ENDORSEMENT ENDORSEMENT END OF SHIFT REPORT GIVEN TO NIGHT RN FOR CONTINUATION OF CARE
--- NOTE | 2021-07-31 21:30 | NUR ---
Performed thomas care and wound dressing change on pt.
[2021-08-01] VITALS (24 sets, daily range): BP systolic 101–153
--- NOTE | 2021-08-01 | NUR ---
Pt noted with SBP 130s, turned off levophed drip for trial.
[2021-08-01] MEDS: NORMAL SALINE 5 ML DISP.SYRIN IVF SCH ×3 (05:59→21:59)
[2021-08-01] MEDS: ALBUTEROL SULFATE 0.083% 2.5 MG/3 ML VIAL.NEB INH SCH ×4 (07:37→19:53)
[2021-08-01] MEDS: ACETYLCYSTEINE 10% 4 ML VIAL (RT) INH SCH (07:38)
[2021-08-01] MEDS: PANTOPRAZOLE SODIUM 40 MG TAB GT SCH (11:00)
[2021-08-01] MEDS: DOXAZOSIN MESYLATE 2 MG TABLET GT SCH (11:00)
[2021-08-01] MEDS: LACTOBACILLUS RHAMNOSUS GG 1 CAP CAPSULE GT SCH (11:00)
[2021-08-01] MEDS: FINASTERIDE 5 MG TABLET (PROSCAR) GT SCH (11:00)
[2021-08-01] MEDS: FUROSEMIDE 20 MG/2 ML VIAL IVP SCH ×2 (11:00→20:52)
[2021-08-01] MEDS: CYANOCOBALAMIN 1000 mCg TABLET GT SCH (11:00)
[2021-08-01] MEDS: CITALOPRAM HYDROBROMIDE 20 MG TABLET GT SCH (11:02)
[2021-08-01] MEDS: D5/0.45 NS 1,000 ML IV SCH ×2 (12:47→20:53)
[2021-08-01] MEDS: CEFEPIME 2 GM in D5W 100 ML IV SCH (12:51)
[2021-08-01] MEDS: VANCOMYCIN HCL 1,000 MG in NS 250 ML IV SCH (15:01)
[2021-08-01] MEDS: GABAPENTIN 300 MG CAPSULE GT SCH (18:00)
--- NOTE | 2021-08-01 18:20 | NUR ---
Nutrition F/U Admitting Diagnosis Hypoxia Reviewed Pertinent Medical/Surgical Hx Medical Record Medical History Comment: PMH: CAD, CVA, CHF, atrial fibrillation, BPH. SARS-CoV-2 Ag (Rapid) Negative (07/26) Pt is also admitted w/ sepsis, UTI, pneumonia, acute respitatory failure, leukocytosis, hyponatremia, CHARLY, hyperglycemia, lactic acid, transaminitis, hypoalbuminemia, protein calorie malnutrition, CHF, benign prostatic hypertrophy, dysphagia, s/p PEG. Subjective Information RD rounded to pt's bedside -- witnessed TF Vital AF 1.2 infusing at 30 ml/hr, however, no currently active TF order in place. RN stated that pt has been tolerating TF well, and she was under the impression that pt had an active TF order. She also reported that pt is receiving water flush of 150 ml Q6h. Per EMR review, TF Rate: 30 ml/hr 1/2; GRV: 0 ml 1/2; TF Intakes: 240 1/2; abd is soft w/ active bowel sounds; last BM x1 07/31; Omar scale: 13 -- wound to medial coccyx. Currently infusing TF rate w/ reported water flush, propofol/D5% infusion rate provides 1336 kcal/day, 54 gm protein/day, and 1184 ml free water/day, which meets 79% of estimated caloric needs and 56% of lower end of estimated protein needs. Current Diet Order/Nutrition Support NPO x2 days Patient/Significant Other Unable To Verbalize Education Provided Not Indicated Pertinent Medications propofol at 2.422 ml/hr (64 kcal/day), VIT B12, protonix, neurontin Pertinent Labs 07/31: WBC 10.4 WNL, BUn 23 H, BG 186 H, CRP 14.4 H, ALB 1.4 L Height (Feet) 6 feet Height (Inches) 1.00 inches Weight (Pounds) 178 pounds -- stable since 07/28 Weight (Calculated Kilograms) 80.823295 kilograms Patient Weight 80.739 kg Body Mass Index 23.48 kg/m2 %IBW 98 Last BM Jul 28, 2021 Current % PO NPO NEW Estimated Energy Expenditure (kcals/day) 1693 (PSU d/t critical illness, intubated -- Ve: 9.9; Tmax: 36.4'C) Estimated Protein Required (g/day) 97-121 (1.2-1.5 gm/kg CBW d/t acute state) NEW Estimated Fluid Required (l/day) 1.7 (1 ml/kcal/day for maintenance) Problem/Etiology/Signs/Symptoms Increased nutritional needs R/T metabolic demands AEB estimated nutritional requirements for acute state. *ongoing Expected Outcomes/Goals - Monitor TF initiating & intakes w/ goal of pt meeting at least 75% of estimated nutritional needs, labs trending WNL, normal GI function, and skin integrity/wt maintenance. Dietitian Recommendations * Vital AF 1.2 at 45 ml/hr (goal rate), Alfonzo BID, Free Water Flush: 150 ml Q6h via GT Provides (w/ current propofol and D5% infusion rates): 1948 kcal/day, 86 gm protein/day, and 1476 ml free water/day Meets: 115% of estimated caloric needs and 89% of lower end of estimated protein needs Follow Up High Risk: F/U in 2-3 days
--- NOTE | 2021-08-01 18:30 | NUR ---
Dietitian Recommendations * Vital AF 1.2 at 45 ml/hr (goal rate), Alfonzo BID, Free Water Flush: 150 ml Q6h via GT Provides (w/ current propofol and D5% infusion rates): 1948 kcal/day, 86 gm protein/day, and 1476 ml free water/day Meets: 115% of estimated caloric needs and 89% of lower end of estimated protein needs LP, RD Please refer to Nutrition F/U for details.
[2021-08-02] VITALS (21 sets, daily range): BP systolic 95–125
[2021-08-02] MEDS: VANCOMYCIN HCL 1,000 MG in NS 250 ML IV SCH (02:00)
[2021-08-02] MEDS: D5/0.45 NS 1,000 ML IV SCH ×2 (03:15→20:02)
[2021-08-02] MEDS: NORMAL SALINE 5 ML DISP.SYRIN IVF SCH ×3 (05:30→23:53)
--- NOTE | 2021-08-02 05:53 | NUR ---
UNEVENTFUL NIGHT VSS,AFEBRILE,ALL CARES DONE, TOLERATING TUBE FEEDING, REMAINS ON LEVOPHED AT 0.013 MCG/KG/MIN.
--- NOTE | 2021-08-02 06:08 | NUR ---
PAGED DR. SINGER [phone] ORDERS SPOKE WITH MICHAEL
--- NOTE | 2021-08-02 06:30 | NUR ---
CALLED DR ENMANUEL PEÑA INFORMED HIM THAT PATIENT HAS VRE ON BLOOD C/S RESULTED ON 07/31/21 AND PATIENT IN ON VANCOMYCIN IV DVISED TO D/C AND START ON ZYVOX 600MG Q12H.SEE CPOE.
[2021-08-02 06:54] LABS: BASOPHILS % (AUTO) 0.6 % (0.0-2.0); EOSINOPHILS # (AUTO) 0.3 K/uL (0.0-0.4); EOSINOPHILS % (AUTO) 4.2 % (0.0-4.0); HEMATOCRIT 26.2 % (36-54); HEMOGLOBIN 8.8 g/dL (14.0-18.0); LYMPHOCYTES # (AUTO) 0.7 K/uL (1.0-5.5); LYMPHOCYTES % (AUTO) 9.2 % (20.5-51.5); MEAN CORPUSCULAR HEMOGLOBIN 29 pg (27-31); MEAN CORPUSCULAR HGB CONC 33 % (32-36); MEAN CORPUSCULAR VOLUME 88 fL (79.0-98.0); MONOCYTES # (AUTO) 0.4 K/uL (0.0-1.0); MONOCYTES % (AUTO) 4.7 % (1.7-9.3); NEUTROPHILS # (AUTO) 6.5 K/uL (1.8-7.7); NEUTROPHILS % (AUTO) 81.3 % (40.0-70.0); PLATELET COUNT (AUTO) 263 K/uL (130-430); RED BLOOD CELL COUNT(AUTO) 2.99 MIL/uL (4.2-6.2); RED CELL DISTRIBUTION WIDTH 18.1 % (9.0-15.0)
[2021-08-02] MEDS: ALBUTEROL SULFATE 0.083% 2.5 MG/3 ML VIAL.NEB INH SCH ×4 (07:00→20:28)
[2021-08-02] MEDS: ACETYLCYSTEINE 10% 4 ML VIAL (RT) INH SCH (07:00)
[2021-08-02 07:27] LABS: ALANINE AMINOTRANSFERASE 22 U/L (12-78); ALBUMIN 1.4 g/dL (3.4-4.8); ANION GAP 9 (5-15); ASPARTATE AMINOTRANSFERASE 28 U/L (10-37); CALCIUM 9.5 mg/dL (8.4-11.0); CHLORIDE 105 mmol/L (98-107); CREATININE 0.76 mg/dL (0.55-1.30); GLUCOSE 128 mg/dL (70-99); POTASSIUM 3.4 mmol/L (3.5-5.1); SODIUM SERUM 136 mmol/L (136-145); TOTAL BILIRUBIN 0.2 mg/dL (0.0-1.0); UREA NITROGEN, BLOOD 17 mg/dL (8-21)
[2021-08-02] MEDS: LINEZOLID 300 ML IV SCH ×2 (09:00→21:17)
[2021-08-02] MEDS: DOXAZOSIN MESYLATE 2 MG TABLET GT SCH (09:00)
[2021-08-02] MEDS: LACTOBACILLUS RHAMNOSUS GG 1 CAP CAPSULE GT SCH (09:00)
[2021-08-02] MEDS: PANTOPRAZOLE SODIUM 40 MG TAB GT SCH (09:00)
[2021-08-02] MEDS: FINASTERIDE 5 MG TABLET (PROSCAR) GT SCH (09:00)
[2021-08-02] MEDS: CITALOPRAM HYDROBROMIDE 20 MG TABLET GT SCH (09:00)
[2021-08-02] MEDS: CEFEPIME 2 GM in D5W 100 ML IV SCH (11:00)
[2021-08-02] MEDS ORDERED: AMIODARONE HCL 200 MG TABLET NG ONE (11:30)
[2021-08-02] MEDS: ALBUMIN HUMAN 25% 100 ML IV SCH ×3 (11:45→23:56)
[2021-08-02] MEDS: CYANOCOBALAMIN 1000 mCg TABLET GT SCH (19:59)
[2021-08-02] MEDS: GABAPENTIN 300 MG CAPSULE GT SCH (20:02)
--- NOTE | 2021-08-02 21:06 | NUR ---
REPORT GIVEN TO IN COMING RN. ALL MEDICATIONS AND ASSESSMENT COMPLETED
[2021-08-02] MEDS: ENOXAPARIN SODIUM 40 MG/0.4 ML SYRINGE SUBCUT SCH (21:17)
[2021-08-03] VITALS (30 sets, daily range): BP systolic 94–130
[2021-08-03] MEDS: NORMAL SALINE 5 ML DISP.SYRIN IVF SCH ×3 (05:51→21:05)
[2021-08-03 06:25] LABS: BASOPHILS % (AUTO) 0.6 % (0.0-2.0); EOSINOPHILS # (AUTO) 0.3 K/uL (0.0-0.4); EOSINOPHILS % (AUTO) 4.8 % (0.0-4.0); HEMATOCRIT 23.6 % (36-54); HEMOGLOBIN 7.7 g/dL (14.0-18.0); LYMPHOCYTES # (AUTO) 0.6 K/uL (1.0-5.5); LYMPHOCYTES % (AUTO) 9.9 % (20.5-51.5); MEAN CORPUSCULAR HEMOGLOBIN 30 pg (27-31); MEAN CORPUSCULAR HGB CONC 33 % (32-36); MEAN CORPUSCULAR VOLUME 90 fL (79.0-98.0); MONOCYTES # (AUTO) 0.3 K/uL (0.0-1.0); MONOCYTES % (AUTO) 5.2 % (1.7-9.3); NEUTROPHILS % (AUTO) 79.5 % (40.0-70.0); PLATELET COUNT (AUTO) 218 K/uL (130-430); RED BLOOD CELL COUNT(AUTO) 2.61 MIL/uL (4.2-6.2); RED CELL DISTRIBUTION WIDTH 17.8 % (9.0-15.0); WHITE BLOOD COUNT (AUTO) 6.3 K/uL (4.8-10.8)
--- NOTE | 2021-08-03 06:34 | NUR ---
ALL CARES DONE, VSS AFEBRILE LEVOPHED OFF AT 0200,CHG BATH DONE,GOOD URINE OUTPUT NO BM.
[2021-08-03 06:36] LABS: ALANINE AMINOTRANSFERASE 12 U/L (12-78); ANION GAP 5 (5-15); ASPARTATE AMINOTRANSFERASE 23 U/L (10-37); CALCIUM 9.9 mg/dL (8.4-11.0); CHLORIDE 106 mmol/L (98-107); CREATININE 0.82 mg/dL (0.55-1.30); GLUCOSE 98 mg/dL (70-99); PHOSPHORUS 2.2 mg/dL (2.7-4.5); POTASSIUM 3.3 mmol/L (3.5-5.1); SODIUM SERUM 137 mmol/L (136-145); UREA NITROGEN, BLOOD 15 mg/dL (8-21)
[2021-08-03] MEDS: ACETYLCYSTEINE 10% 4 ML VIAL (RT) INH SCH (07:18)
[2021-08-03] MEDS: ALBUTEROL SULFATE 0.083% 2.5 MG/3 ML VIAL.NEB INH SCH ×4 (07:18→20:04)
[2021-08-03 08:00] LABS: TOTAL BILIRUBIN 0.5 mg/dL (0.0-1.0)
--- NOTE | 2021-08-03 08:05 | NUR ---
RT NOTES confirmed with RN that pt is not on any sedation, pt is awake but does not follow command. cpap per order, after 7 minutes, apnea ventilation was triggered. vent back to ac. rn aware.
[2021-08-03] MEDS ORDERED: POTASSIUM CHLORIDE 20 MEQ TAB.PRT.SR NG ONE (08:15)
[2021-08-03] MEDS: LACTOBACILLUS RHAMNOSUS GG 1 CAP CAPSULE GT SCH (09:31)
[2021-08-03] MEDS: LINEZOLID 300 ML IV SCH ×2 (09:31→21:04)
[2021-08-03] MEDS: DOXAZOSIN MESYLATE 2 MG TABLET GT SCH (09:32)
[2021-08-03] MEDS: CITALOPRAM HYDROBROMIDE 20 MG TABLET GT SCH (09:34)
[2021-08-03] MEDS: AMIODARONE HCL 200 MG TABLET NG SCH (09:36)
[2021-08-03] MEDS: CYANOCOBALAMIN 1000 mCg TABLET GT SCH (09:36)
[2021-08-03] MEDS: PANTOPRAZOLE SODIUM 40 MG TAB GT SCH (09:36)
[2021-08-03] MEDS: FINASTERIDE 5 MG TABLET (PROSCAR) GT SCH (09:37)
[2021-08-03] MEDS ORDERED: MAGNESIUM SULFATE 1 GM/2 ML VIAL IVP ONE (09:45)
[2021-08-03] MEDS: FUROSEMIDE 20 MG/2 ML VIAL IVP SCH (09:45)
[2021-08-03] MEDS ORDERED: POTASSIUM CHLORIDE 20 MEQ/PKT PACKET PO ONE (10:45)
[2021-08-03] MEDS ORDERED: NA PHOS 30 MM in NS 250 ML IV ONE (10:45)
[2021-08-03] MEDS: CEFEPIME 2 GM in D5W 100 ML IV SCH (10:56)
[2021-08-03] MEDS ORDERED: MAGNESIUM SULFATE 50 ML IV ONE (11:30)
[2021-08-03] MEDS: GABAPENTIN 300 MG CAPSULE GT SCH (17:09)
[2021-08-03] MEDS: ENOXAPARIN SODIUM 40 MG/0.4 ML SYRINGE SUBCUT SCH (21:03)
[2021-08-04] VITALS (30 sets, daily range): BP systolic 93–134
[2021-08-04] MEDS: NORMAL SALINE 5 ML DISP.SYRIN IVF SCH ×3 (06:18→21:14)
[2021-08-04] MEDS: ALBUTEROL SULFATE 0.083% 2.5 MG/3 ML VIAL.NEB INH SCH ×4 (07:16→19:10)
[2021-08-04] MEDS: ACETYLCYSTEINE 10% 4 ML VIAL (RT) INH SCH (07:17)
[2021-08-04 07:46] LABS: ALANINE AMINOTRANSFERASE 19 U/L (12-78); ALBUMIN 1.9 g/dL (3.4-4.8); ANION GAP 10 (5-15); ASPARTATE AMINOTRANSFERASE 31 U/L (10-37); CHLORIDE 105 mmol/L (98-107); CREATININE 0.81 mg/dL (0.55-1.30); GLUCOSE 83 mg/dL (70-99); PHOSPHORUS 3.6 mg/dL (2.7-4.5); POTASSIUM 3.5 mmol/L (3.5-5.1); SODIUM SERUM 137 mmol/L (136-145); TOTAL BILIRUBIN 0.4 mg/dL (0.0-1.0); UREA NITROGEN, BLOOD 16 mg/dL (8-21)
--- NOTE | 2021-08-04 07:50 | NUR ---
RT NOTES cpap was attempted, almost immediately after the change, apnea ventilation was triggered. rn made aware.
--- NOTE | 2021-08-04 08:15 | NUR ---
RT NOTES Dr Mejia rounding at this time, made aware of apneic episode on cpap. Dr change apnea to 40 sec. and CPAP 5 PS 12.
[2021-08-04] MEDS: LINEZOLID 300 ML IV SCH ×2 (09:08→21:13)
[2021-08-04] MEDS: LACTOBACILLUS RHAMNOSUS GG 1 CAP CAPSULE GT SCH (09:09)
[2021-08-04] MEDS: FINASTERIDE 5 MG TABLET (PROSCAR) GT SCH (09:09)
[2021-08-04] MEDS: PANTOPRAZOLE SODIUM 40 MG TAB GT SCH (09:09)
[2021-08-04] MEDS: CITALOPRAM HYDROBROMIDE 20 MG TABLET GT SCH (09:09)
[2021-08-04] MEDS: CYANOCOBALAMIN 1000 mCg TABLET GT SCH (09:10)
[2021-08-04] MEDS: AMIODARONE HCL 200 MG TABLET NG SCH (09:11)
[2021-08-04] MEDS: DOXAZOSIN MESYLATE 2 MG TABLET GT SCH (09:12)
[2021-08-04] MEDS: FUROSEMIDE 20 MG/2 ML VIAL IVP SCH (09:12)
[2021-08-04] MEDS ORDERED: COMMUNICATION ORDER XX ONE (09:45)
--- NOTE | 2021-08-04 10:00 | NUR ---
RT NOTES Vent back to AC.
[2021-08-04] MEDS ORDERED: BUMEX 1 MG/4 ML VIAL IVP SCH (10:30)
[2021-08-04] MEDS ORDERED: D5W IV ONE (11:00)
[2021-08-04] MEDS ORDERED: POTASSIUM CHLORIDE IV ONE (11:00)
[2021-08-04] MEDS ORDERED: MAGNESIUM SULFATE IV ONE (11:00)
[2021-08-04] MEDS: CEFEPIME 2 GM in D5W 100 ML IV SCH (11:20)
[2021-08-04] MEDS: ALBUMIN HUMAN 25% 50 ML IV SCH ×2 (13:18→21:12)
[2021-08-04] MEDS: GABAPENTIN 300 MG CAPSULE GT SCH (19:37)
[2021-08-04] MEDS: ENOXAPARIN SODIUM 40 MG/0.4 ML SYRINGE SUBCUT SCH (21:14)
[2021-08-05] VITALS (32 sets, daily range): BP systolic 82–160
[2021-08-05] MEDS: NORMAL SALINE 5 ML DISP.SYRIN IVF SCH ×3 (06:08→22:47)
--- NOTE | 2021-08-05 06:16 | NUR ---
ALL CARES DONE VSS,AFEBRILE, TOLERATING TUBE FEEDING, TOLERATING VENT UNEVENTFUL NIGHT NOTHING ACUTE, CONTINUE CARE.
--- NOTE | 2021-08-05 07:00 | NUR ---
Opening Note Patient is resting with no signs of distress. VSS. All care assumed
[2021-08-05 07:13] LABS: BASOPHILS % (AUTO) 0.5 % (0.0-2.0); EOSINOPHILS # (AUTO) 0.3 K/uL (0.0-0.4); EOSINOPHILS % (AUTO) 3.9 % (0.0-4.0); HEMATOCRIT 24.6 % (36-54); LYMPHOCYTES # (AUTO) 0.6 K/uL (1.0-5.5); LYMPHOCYTES % (AUTO) 9.2 % (20.5-51.5); MEAN CORPUSCULAR HEMOGLOBIN 29 pg (27-31); MEAN CORPUSCULAR HGB CONC 33 % (32-36); MEAN CORPUSCULAR VOLUME 89 fL (79.0-98.0); MONOCYTES # (AUTO) 0.4 K/uL (0.0-1.0); NEUTROPHILS # (AUTO) 5.7 K/uL (1.8-7.7); NEUTROPHILS % (AUTO) 80.4 % (40.0-70.0); PLATELET COUNT (AUTO) 205 K/uL (130-430); RED BLOOD CELL COUNT(AUTO) 2.75 MIL/uL (4.2-6.2); RED CELL DISTRIBUTION WIDTH 18.9 % (9.0-15.0)
[2021-08-05] MEDS: ALBUTEROL SULFATE 0.083% 2.5 MG/3 ML VIAL.NEB INH SCH ×3 (07:37→20:25)
[2021-08-05] MEDS: ACETYLCYSTEINE 10% 4 ML VIAL (RT) INH SCH (07:38)
[2021-08-05] MEDS ORDERED: POTASSIUM CHLORIDE 20 MEQ/PKT PACKET NG ONE (07:45)
[2021-08-05 07:53] LABS: ALANINE AMINOTRANSFERASE 18 U/L (12-78); ALBUMIN 2.1 g/dL (3.4-4.8); ANION GAP 7 (5-15); ASPARTATE AMINOTRANSFERASE 26 U/L (10-37); CALCIUM 10.2 mg/dL (8.4-11.0); CHLORIDE 103 mmol/L (98-107); CREATININE 0.87 mg/dL (0.55-1.30); GLUCOSE 87 mg/dL (70-99); PHOSPHORUS 2.8 mg/dL (2.7-4.5); POTASSIUM 3.5 mmol/L (3.5-5.1); SODIUM SERUM 135 mmol/L (136-145); TOTAL BILIRUBIN 0.4 mg/dL (0.0-1.0); UREA NITROGEN, BLOOD 16 mg/dL (8-21)
[2021-08-05] MEDS: LACTOBACILLUS RHAMNOSUS GG 1 CAP CAPSULE GT SCH (08:15)
[2021-08-05] MEDS: PANTOPRAZOLE SODIUM 40 MG TAB GT SCH (08:15)
[2021-08-05] MEDS: CITALOPRAM HYDROBROMIDE 20 MG TABLET GT SCH (08:16)
[2021-08-05] MEDS: AMIODARONE HCL 200 MG TABLET NG SCH (08:16)
[2021-08-05] MEDS: CYANOCOBALAMIN 1000 mCg TABLET GT SCH (08:16)
[2021-08-05] MEDS: FINASTERIDE 5 MG TABLET (PROSCAR) GT SCH (08:16)
[2021-08-05] MEDS: DOXAZOSIN MESYLATE 2 MG TABLET GT SCH (08:17)
[2021-08-05] MEDS: LINEZOLID 300 ML IV SCH ×2 (08:18→20:44)
[2021-08-05] MEDS: CEFEPIME 2 GM in D5W 100 ML IV SCH (11:14)
[2021-08-05 11:37] LABS: ANION GAP 6 (5-15); CHLORIDE 103 mmol/L (98-107); CREATININE 0.92 mg/dL (0.55-1.30); GLUCOSE 110 mg/dL (70-99); POTASSIUM 3.7 mmol/L (3.5-5.1); SODIUM SERUM 134 mmol/L (136-145); UREA NITROGEN, BLOOD 16 mg/dL (8-21)
--- NOTE | 2021-08-05 15:20 | NUR ---
Nutrition F/U Admitting Diagnosis Hypoxia Reviewed Pertinent Medical/Surgical Hx Medical Record Medical History Comment: PMH: CAD, CVA, CHF, atrial fibrillation, BPH. SARS-CoV-2 Ag (Rapid) Negative (07/26) Pt is also admitted w/ sepsis, UTI, pneumonia, acute respitatory failure, leukocytosis, hyponatremia, CHARLY, hyperglycemia, lactic acid, transaminitis, hypoalbuminemia, protein calorie malnutrition, CHF, benign prostatic hypertrophy, dysphagia, s/p PEG. Subjective Information RD rounded to pt's bedside -- witnessed TF Vital AF 1.2 infusing at 30 ml/hr; 205 ml infused, providing [address] relayed TF goal rate to RN, and RN stated that pt has been tolerating TF well, today, and will increase to 45 ml/hr today. He also reported that pt had been having loose stools that last 3-4 days, however, none today during his shift. Per EMR review, pt continues unresponsive on vent; off pressors; failed CPAP trials; TF Rate: 30 ml/hr 08/05; GRV: 2 ml 08/05; TF Intakes: 240 08/05; abd is soft w/ hypoactive bowel sounds; last BM x1 08/04; Omar scale: 10 -- L arm w/ rash and medial coccyx w/ laceration. Currently infusing TF rate provides 864 kcal/day, 54 gm protein/day, and 1184 ml free water/day, which meets 51% of estimated caloric needs and 56% of lower end of estimated protein needs. Pt is not meeting nutritional needs. Current Diet Order/Nutrition Support Vital AF 1.2 at 45 ml/hr, Alfonzo BID, Free Water Flush: 150 ml Q6h via GT x3 days Patient/Significant Other Unable To Verbalize Education Provided Not Indicated Pertinent Medications propofol at 2.422 ml/hr (64 kcal/day), VIT B12, protonix, neurontin, lovenox Pertinent Labs BUN 16 WNL, BG 110 H, CRP 14.4 H (07/30/21), ALB 2.1 L Height (Feet) 6 feet Height (Inches) 1.00 inches Weight (Pounds) 178 pounds -- stable since 07/28 Weight (Calculated Kilograms) 80.876588 kilograms Patient Weight 80.739 kg Body Mass Index 23.48 kg/m2 %IBW 98 Last BM Jul 28, 2021 Current % PO NPO Estimated Energy Expenditure (kcals/day) 1693 (PSU d/t critical illness, intubated -- Ve: 9.9; Tmax: 36.4'C) Estimated Protein Required (g/day) 97-121 (1.2-1.5 gm/kg CBW d/t acute state) Estimated Fluid Required (l/day) 1.7 (1 ml/kcal/day for maintenance) Problem/Etiology/Signs/Symptoms Increased nutritional needs R/T metabolic demands AEB estimated nutritional requirements for acute state. *ongoing Expected Outcomes/Goals - Monitor TF initiating & intakes w/ goal of pt meeting at least 80% of estimated nutritional needs, labs trending WNL, normal GI function, and skin integrity/wt maintenance. Dietitian Recommendations * Vital AF 1.2 at 45 ml/hr (goal rate), Alfonzo BID, Free Water Flush: 150 ml Q6h via GT Provides: 1476 kcal/day, 86 gm protein/day, and 1476 ml free water/day Meets: 87% of estimated caloric needs and 89% of lower end of estimated protein needs Follow Up High Risk: F/U in 2-3 days
--- NOTE | 2021-08-05 15:25 | NUR ---
Dietitian Recommendations * Vital AF 1.2 at 45 ml/hr (goal rate), Alfonzo BID, Free Water Flush: 150 ml Q6h via GT Provides: 1476 kcal/day, 86 gm protein/day, and 1476 ml free water/day Meets: 87% of estimated caloric needs and 89% of lower end of estimated protein needs LP, RD Please refer to Nutrition F/U for details.
--- NOTE | 2021-08-05 16:45 | NUR ---
Wound Care Wound care consult done with wound care nurse. Mepolex and barrier cream replaced. All sheets changed.
--- NOTE | 2021-08-05 17:18 | NUR ---
[id number] TRIED CPAP TRIAL. PT APNEIC. PLACED BACK TO PREVIOUS SETTINGS. RN AWARE. Addendum: 08/05/21 at 1719 by Dena Pierre RT Amended: Links added.
[2021-08-05] MEDS ORDERED: MENTHOL/ZINC OXIDE 113 GM OINT. TP PRN (17:45)
--- NOTE | 2021-08-05 17:50 | NUR ---
WOUND EVALUATION: Wound Consult received from Dr. Dawson. Thank you, Dr. Dawson, for the consult. Patient received in a [place] Bed with an Atmos-Air 9000 mattress, awake, non-verbal, nonresponsive to verbal commands. Patient is unable to turn in bed independently. Omar Score is a 9. Past Medical History: Coronary Artery Disease, CVA, CHF, BPH, atrial fibrillation. Recent Labs: WBC 7.0, RBC 2.75, hemoglobin 8.0, hematocrit 24.6, platelets 18.9, ESR 101, sodium 134, glucose 110, serum total protein 6.1, albumin 2.1. Microbiology: MRSA screen results positive. Blood culture results x2 normal. Urine culture results positive for E. coli and Enterococcus faecium (VRE). Sputum culture induced results positive for MRSA. Intrinsic factors that delay wound healing: Coronary Artery Disease, CVA, CHF, atrial fibrillation, Hypoalbuminemia, Hyperglycemia. Extrinsic factors that delay wound healing: Decreased mobility. Wound Assessment: 1. Bilateral Buttocks: Area of erythema with MASD from IAD around superior aspect of perimeter of anus, which have converted to several stage 2 pressure ulcers with pink tissue and one stage 3 pressure ulcer with yellow tissue, present on admission. No odor, no drainage. Thomas-wounds intact. Entire site measures 6.6 cm x 8.4 cm. Recommend: Cleanse wound with normal saline. Apply Calmoseptine cream to wounds and thomas-wounds. Apply Venelex ointment to any portion of wounds not covered by Calmoseptine cream. Cover sites with Sacral foam dressing. Perform wound care daily, and as needed for dressing soiling or dislodgement. Also recommend: Reposition patient every 2 hours with pillow support and off-load pressure areas with pillows for pressure re-distribution. Offload, elevate and float bilateral heels with one pillow underneath left hip and 1 pillow underneath right hip at all times (initiate turning by placing an additional pillow underneath left pelvis for 2 hours, then rotate same pillow in place underneath right pelvis for 2 hours, repeat every 2 hours). Perform skin care and monitor skin integrity Q shift. Use Calmoseptine cream on buttocks and other moisture susceptible areas QID and as needed for soiling. Place patient on a low air-loss mattress.
[2021-08-05] MEDS: GABAPENTIN 300 MG CAPSULE GT SCH (18:13)
--- NOTE | 2021-08-05 18:55 | NUR ---
closing note PAtient is resting in bed. VSS. Neuro consult has been odered for possible near extubation. Patient has fluids running TKO at 5ml/hr.
[2021-08-05] MEDS: ENOXAPARIN SODIUM 40 MG/0.4 ML SYRINGE SUBCUT SCH (20:45)
[2021-08-06] VITALS (31 sets, daily range): BP systolic 93–133
[2021-08-06] MEDS: NORMAL SALINE 5 ML DISP.SYRIN IVF SCH ×3 (06:13→22:00)
--- NOTE | 2021-08-06 06:16 | NUR ---
all cares done, vss, afebrile, tolerating current vent settings and tube feeding no BM within the shift.
--- NOTE | 2021-08-06 07:00 | NUR ---
Recv report fr Robles rn, patient is in bed , no issues overnight, still remains in the ventilator, remains lethargic, opens eyes with stimuli, telemetry shows v paced rate at 70 bpm, g tube feeding infusing at 30 ml/hr, f/c to gravity, skin is pale warm to touch, i will continue nursing care and interventions.
[2021-08-06] MEDS: ALBUTEROL SULFATE 0.083% 2.5 MG/3 ML VIAL.NEB INH SCH ×3 (07:19→19:46)
[2021-08-06] MEDS: ACETYLCYSTEINE 10% 4 ML VIAL (RT) INH SCH (07:20)
--- NOTE | 2021-08-06 08:00 | NUR ---
Received a call from cardiopulmonary, they notified me that process safety engineering technologist will be her at 5 pm today.
--- NOTE | 2021-08-06 08:40 | NUR ---
RT NOTES CPAP trial was attempted, apnea ventilation kept getting triggered due to poor pt. respiratory effort. Switched vent back to previous Ac settings. RN made aware.
[2021-08-06] MEDS: DOXAZOSIN MESYLATE 2 MG TABLET GT SCH (09:00)
[2021-08-06] MEDS: LACTOBACILLUS RHAMNOSUS GG 1 CAP CAPSULE GT SCH (09:38)
[2021-08-06] MEDS: CITALOPRAM HYDROBROMIDE 20 MG TABLET GT SCH (09:38)
[2021-08-06] MEDS: FINASTERIDE 5 MG TABLET (PROSCAR) GT SCH (09:38)
[2021-08-06] MEDS: CYANOCOBALAMIN 1000 mCg TABLET GT SCH (09:38)
[2021-08-06] MEDS: BALSAM PERU/CASTOR OIL 56.7 GM OINT...G. TP SCH (09:39)
[2021-08-06] MEDS: AMIODARONE HCL 200 MG TABLET NG SCH (09:39)
[2021-08-06] MEDS: LINEZOLID 300 ML IV SCH ×2 (09:42→21:14)
[2021-08-06] MEDS ORDERED: PANTOPRAZOLE SODIUM 40 MG/VIAL (PROTONIX) IVP ONE (10:00)
--- NOTE | 2021-08-06 10:00 | NUR ---
Turned and repositioned the patient, maintain patient's comfort. I will continue to monitor the patient.
[2021-08-06] MEDS: CEFEPIME 2 GM in D5W 100 ML IV SCH (11:03)
--- NOTE | 2021-08-06 12:00 | NUR ---
12 pm : re assessment: patient is in bed no changed in condition fr initial assessment, remains lethargic, still on the ventilator with minimal settings. tube feeding is tolerated, f/c to gravity, i will contininue to provide comfort and care,
--- NOTE | 2021-08-06 14:00 | NUR ---
Turned and repositioned the patient.
--- NOTE | 2021-08-06 18:00 | NUR ---
All nursing care and issues all have been addressed, EEG techs called and said that they will be late for 30 min, i will endorse care to night guard nurse.
[2021-08-06] MEDS: GABAPENTIN 300 MG CAPSULE GT SCH (20:03)
[2021-08-06] MEDS: ENOXAPARIN SODIUM 40 MG/0.4 ML SYRINGE SUBCUT SCH (21:16)
[2021-08-07] VITALS (27 sets, daily range): BP systolic 99–125
--- NOTE | 2021-08-07 | NUR ---
RN NOTES ON SAME VENT SETTING WITH GOOD SPO2. GT FEEDING WELL TOLERATED.
--- NOTE | 2021-08-07 04:00 | NUR ---
RN NOTES AM CARE DONE, SACRAL WOUND DRESSINGS CHANGED. PATIENT REPOSITIONED FOR COMFORT.
--- NOTE | 2021-08-07 08:25 | NUR ---
RT NOTES Dr Mejia rounding now, made aware that pt. is not awake enough to do cpap trials, continues to trigger apnea ventilation.
[2021-08-07] MEDS: PANTOPRAZOLE SODIUM 40 MG/VIAL (PROTONIX) IVP SCH (09:00)
[2021-08-07] MEDS: NORMAL SALINE 5 ML DISP.SYRIN IVF SCH ×3 (10:00→22:00)
[2021-08-07] MEDS: LACTOBACILLUS RHAMNOSUS GG 1 CAP CAPSULE GT SCH (10:21)
[2021-08-07] MEDS: AMIODARONE HCL 200 MG TABLET NG SCH (10:22)
[2021-08-07] MEDS: FINASTERIDE 5 MG TABLET (PROSCAR) GT SCH (10:25)
[2021-08-07] MEDS: DOXAZOSIN MESYLATE 2 MG TABLET GT SCH (10:25)
[2021-08-07] MEDS: CYANOCOBALAMIN 1000 mCg TABLET GT SCH (10:25)
[2021-08-07] MEDS: CITALOPRAM HYDROBROMIDE 20 MG TABLET GT SCH (10:25)
[2021-08-07] MEDS: LINEZOLID 300 ML IV SCH ×2 (10:35→21:50)
[2021-08-07] MEDS: BALSAM PERU/CASTOR OIL 56.7 GM OINT...G. TP SCH (10:37)
[2021-08-07] MEDS: ALBUTEROL SULFATE 0.083% 2.5 MG/3 ML VIAL.NEB INH SCH ×4 (11:22→21:03)
[2021-08-07] MEDS: CEFEPIME 2 GM in D5W 100 ML IV SCH (11:22)
[2021-08-07] MEDS: ACETYLCYSTEINE 10% 4 ML VIAL (RT) INH SCH (11:23)
[2021-08-07] MEDS: GABAPENTIN 300 MG CAPSULE GT SCH (18:02)
--- NOTE | 2021-08-07 19:35 | NUR ---
PM SHIFT ASSESSMENT Patient is awake but unable to make needs known. O2 via vent, RR even and unlabored. SR on monitor. Skin warm and dry. IVF infusing, no s/s of infiltration noted. Gtube in place, tolerating current feedings. Safety precautions in place, call light within reach. Will continue to monitor.
[2021-08-07] MEDS: ENOXAPARIN SODIUM 40 MG/0.4 ML SYRINGE SUBCUT SCH (21:51)
[2021-08-08] VITALS (29 sets, daily range): BP systolic 108–135
[2021-08-08] MEDS: NORMAL SALINE 5 ML DISP.SYRIN IVF SCH ×3 (05:13→22:00)
[2021-08-08 07:03] LABS: BASOPHILS % (AUTO) 0.6 % (0.0-2.0); EOSINOPHILS # (AUTO) 0.2 K/uL (0.0-0.4); EOSINOPHILS % (AUTO) 3.6 % (0.0-4.0); HEMATOCRIT 25.5 % (36-54); HEMOGLOBIN 8.3 g/dL (14.0-18.0); LYMPHOCYTES # (AUTO) 0.6 K/uL (1.0-5.5); LYMPHOCYTES % (AUTO) 10.1 % (20.5-51.5); MEAN CORPUSCULAR HEMOGLOBIN 29 pg (27-31); MEAN CORPUSCULAR HGB CONC 32 % (32-36); MEAN CORPUSCULAR VOLUME 89 fL (79.0-98.0); MONOCYTES # (AUTO) 0.4 K/uL (0.0-1.0); MONOCYTES % (AUTO) 6.5 % (1.7-9.3); NEUTROPHILS % (AUTO) 79.2 % (40.0-70.0); PLATELET COUNT (AUTO) 176 K/uL (130-430); RED BLOOD CELL COUNT(AUTO) 2.86 MIL/uL (4.2-6.2); RED CELL DISTRIBUTION WIDTH 18.6 % (9.0-15.0); WHITE BLOOD COUNT (AUTO) 6.3 K/uL (4.8-10.8)
[2021-08-08 07:12] LABS: ANION GAP 7 (5-15); CALCIUM 10.2 mg/dL (8.4-11.0); CHLORIDE 101 mmol/L (98-107); CREATININE 0.84 mg/dL (0.55-1.30); GLUCOSE 93 mg/dL (70-99); POTASSIUM 4.2 mmol/L (3.5-5.1); SODIUM SERUM 133 mmol/L (136-145); UREA NITROGEN, BLOOD 17 mg/dL (8-21)
--- NOTE | 2021-08-08 07:15 | NUR ---
ENDORSEMENT Patient care endorsed to marvin FONSECA.
[2021-08-08 08:06] LABS: ERYTHROCYTE SEDIMENTATION RATE 115 MM/HR (0-15)
--- NOTE | 2021-08-08 08:25 | NUR ---
RT NOTES Did not tolerate cpap trial, pt became apneic. RN aware
[2021-08-08] MEDS: LINEZOLID 300 ML IV SCH (08:58)
[2021-08-08] MEDS: CITALOPRAM HYDROBROMIDE 20 MG TABLET GT SCH (09:00)
[2021-08-08] MEDS: PANTOPRAZOLE SODIUM 40 MG/VIAL (PROTONIX) IVP SCH (09:00)
[2021-08-08] MEDS: LACTOBACILLUS RHAMNOSUS GG 1 CAP CAPSULE GT SCH (09:00)
[2021-08-08] MEDS: AMIODARONE HCL 200 MG TABLET NG SCH (09:01)
[2021-08-08 09:02] LABS: C-REACTIVE PROTEIN QUANT 6.6 mg/dL (0-0.5)
[2021-08-08] MEDS: DOXAZOSIN MESYLATE 2 MG TABLET GT SCH (09:02)
[2021-08-08] MEDS: CYANOCOBALAMIN 1000 mCg TABLET GT SCH (09:03)
[2021-08-08] MEDS: FINASTERIDE 5 MG TABLET (PROSCAR) GT SCH (09:04)
[2021-08-08] MEDS: levETIRAcetam 500 MG in NS 100 ML IV SCH ×2 (09:05→23:07)
[2021-08-08] MEDS: ALBUTEROL SULFATE 0.083% 2.5 MG/3 ML VIAL.NEB INH SCH ×4 (11:10→21:36)
[2021-08-08] MEDS: ACETYLCYSTEINE 10% 4 ML VIAL (RT) INH SCH (11:11)
[2021-08-08] MEDS: CEFEPIME 2 GM in D5W 100 ML IV SCH (11:40)
[2021-08-08] MEDS: BALSAM PERU/CASTOR OIL 56.7 GM OINT...G. TP SCH (12:43)
--- NOTE | 2021-08-08 14:30 | NUR ---
Nutrition F/U Admitting Diagnosis Hypoxia Reviewed Pertinent Medical/Surgical Hx Medical Record Medical History Comment: PMH: CAD, CVA, CHF, atrial fibrillation, BPH. SARS-CoV-2 Ag (Rapid) Negative (07/26) Pt is also admitted w/ sepsis, UTI, pneumonia, acute respitatory failure, leukocytosis, hyponatremia, CHARLY, hyperglycemia, lactic acid, transaminitis, hypoalbuminemia, protein calorie malnutrition, CHF, benign prostatic hypertrophy, dysphagia, s/p PEG. Subjective Information RD rounded to pt's bedside -- witnessed TF Vital AF 1.2 hung, but not infusing, as pt's primary RN was turning pt and providing care. RD relayed new rec for TF goal rate, and RN stated that pt has been tolerating TF well, then resumed TF and increased rate to 55 ml/hr. She performed physical assessment, noted soft abd, and reported no BM today. Per EMR review, pt continues intubated/unresponsive on vent; off pressors; failed CPAP trials; TF Rate: 45 ml/hr 08/08; GRV: 0 ml 08/08; TF Intakes: 360 08/08; abd is soft w/ active bowel sounds; last BM x1 08/04; Omar scale: 13 -- per Die Polisher note 08/05: 1. Bilateral Buttocks: Area of erythema with MASD from IAD around superior aspect of perimeter of anus, which have converted to several stage 2 pressure ulcers with pink tissue and one stage 3 pressure ulcer with yellow tissue, present on admission. Increase of TF rate warranted to prevent unintentional wt loss. Current Diet Order/Nutrition Support Vital AF 1.2 at 45 ml/hr, Alfonzo BID, Free Water Flush: 150 ml Q6h via GT x6 days Patient/Significant Other Unable To Verbalize Education Provided Not Indicated Pertinent Medications VIT B12, protonix IV, neurontin, lovenox, culturelle, VIT B12 Pertinent Labs CRP 6.6 H, Na 133 L, ALB 2.1 L (08/05) Height (Feet) 6 feet Height (Inches) 1.00 inches Weight (Pounds) 178 pounds -- stable since 07/28 Weight (Calculated Kilograms) 80.093165 kilograms Patient Weight 80.739 kg Body Mass Index 23.48 kg/m2 %IBW 98 Last BM Jul 28, 2021 Current % PO NPO NEW Estimated Energy Expenditure (kcals/day) 1707 (PSU d/t critical illness, intubated -- Ve: 8.2; Tmax: 36.8'C) Estimated Protein Required (g/day) 97-121 (1.2-1.5 gm/kg CBW d/t acute state, wound healing) Estimated Fluid Required (l/day) 1.7 (1 ml/kcal/day for maintenance) Problem/Etiology/Signs/Symptoms Increased nutritional needs R/T metabolic demands AEB estimated nutritional requirements for acute state. *ongoing Expected Outcomes/Goals - Monitor TF initiating & intakes w/ goal of pt meeting >80% of estimated nutritional needs, labs trending WNL, normal GI function, and skin integrity/wt maintenance. Dietitian Recommendations * Vital AF 1.2 at 55 ml/hr (new goal rate), Alfonzo BID, Free Water Flush: 150 ml Q6h via GT Provides: 1764 kcal/day, 104 gm protein/day, and 1671 ml free water/day Meets: 103% of estimated caloric needs and 86% of lower end of estimated protein needs Follow Up High Risk: F/U in 2-3 days
--- NOTE | 2021-08-08 14:35 | NUR ---
Dietitian Recommendations * Vital AF 1.2 at 55 ml/hr (new goal rate), Alfonzo BID, Free Water Flush: 150 ml Q6h via GT Provides: 1764 kcal/day, 104 gm protein/day, and 1671 ml free water/day Meets: 103% of estimated caloric needs and 86% of lower end of estimated protein needs LP, RD Please refer to Nutrition F/U for details.
--- NOTE | 2021-08-08 14:58 | NUR ---
Repositioned pt to side with pillow support. Tube feeding increased to 45 cc/hr per bread panner recommendation and order.
[2021-08-08] MEDS: GABAPENTIN 300 MG CAPSULE GT SCH (16:52)
--- NOTE | 2021-08-08 17:17 | NUR ---
PICC line dressing changed using sterile technique. Pt repositioned with pillow support.
[2021-08-08] MEDS: ENOXAPARIN SODIUM 40 MG/0.4 ML SYRINGE SUBCUT SCH (23:07)
[2021-08-09] VITALS (19 sets, daily range): BP systolic 116–147
[2021-08-09 06:36] LABS: BASOPHILS % (AUTO) 0.6 % (0.0-2.0); EOSINOPHILS # (AUTO) 0.3 K/uL (0.0-0.4); EOSINOPHILS % (AUTO) 4.9 % (0.0-4.0); HEMATOCRIT 23.5 % (36-54); HEMOGLOBIN 7.9 g/dL (14.0-18.0); LYMPHOCYTES # (AUTO) 0.6 K/uL (1.0-5.5); LYMPHOCYTES % (AUTO) 10.4 % (20.5-51.5); MEAN CORPUSCULAR HEMOGLOBIN 29 pg (27-31); MEAN CORPUSCULAR HGB CONC 34 % (32-36); MEAN CORPUSCULAR VOLUME 87 fL (79.0-98.0); MONOCYTES # (AUTO) 0.3 K/uL (0.0-1.0); MONOCYTES % (AUTO) 6.4 % (1.7-9.3); NEUTROPHILS # (AUTO) 4.1 K/uL (1.8-7.7); NEUTROPHILS % (AUTO) 77.7 % (40.0-70.0); PLATELET COUNT (AUTO) 171 K/uL (130-430); RED BLOOD CELL COUNT(AUTO) 2.71 MIL/uL (4.2-6.2); RED CELL DISTRIBUTION WIDTH 17.8 % (9.0-15.0); WHITE BLOOD COUNT (AUTO) 5.3 K/uL (4.8-10.8)
[2021-08-09 06:44] LABS: ALANINE AMINOTRANSFERASE 12 U/L (12-78); ALBUMIN 1.7 g/dL (3.4-4.8); ANION GAP 6 (5-15); ASPARTATE AMINOTRANSFERASE 23 U/L (10-37); CALCIUM 10.1 mg/dL (8.4-11.0); CHLORIDE 100 mmol/L (98-107); CREATININE 0.83 mg/dL (0.55-1.30); GLUCOSE 95 mg/dL (70-99); PHOSPHORUS 2.8 mg/dL (2.7-4.5); SODIUM SERUM 131 mmol/L (136-145); TOTAL BILIRUBIN 0.3 mg/dL (0.0-1.0); UREA NITROGEN, BLOOD 20 mg/dL (8-21)
[2021-08-09] MEDS: ALBUTEROL SULFATE 0.083% 2.5 MG/3 ML VIAL.NEB INH SCH ×3 (07:48→20:15)
[2021-08-09] MEDS: ACETYLCYSTEINE 10% 4 ML VIAL (RT) INH SCH (07:48)
[2021-08-09] MEDS ORDERED: BUMEX 1 MG/4 ML VIAL IVP ONE (08:00)
[2021-08-09] MEDS ORDERED: ALBUMIN HUMAN 25% 100 ML IV ONE (08:00)
[2021-08-09] MEDS: DOXAZOSIN MESYLATE 2 MG TABLET GT SCH (08:21)
[2021-08-09] MEDS: PANTOPRAZOLE SODIUM 40 MG/VIAL (PROTONIX) IVP SCH (08:21)
[2021-08-09] MEDS: CITALOPRAM HYDROBROMIDE 20 MG TABLET GT SCH (08:21)
[2021-08-09] MEDS: AMIODARONE HCL 200 MG TABLET NG SCH (08:22)
[2021-08-09] MEDS: FINASTERIDE 5 MG TABLET (PROSCAR) GT SCH (08:22)
[2021-08-09] MEDS: LACTOBACILLUS RHAMNOSUS GG 1 CAP CAPSULE GT SCH (08:22)
[2021-08-09] MEDS: CYANOCOBALAMIN 1000 mCg TABLET GT SCH (08:23)
[2021-08-09] MEDS: NORMAL SALINE 5 ML DISP.SYRIN IVF SCH ×3 (08:23→21:25)
[2021-08-09] MEDS: levETIRAcetam 500 MG in NS 100 ML IV SCH ×2 (08:24→20:06)
[2021-08-09] MEDS: BALSAM PERU/CASTOR OIL 56.7 GM OINT...G. TP SCH (08:28)
[2021-08-09] MEDS ORDERED: FUROSEMIDE 20 MG/2 ML VIAL IVP ONE (09:00)
[2021-08-09 10:16] LABS: ERYTHROCYTE SEDIMENTATION RATE 107 MM/HR (0-15)
--- NOTE | 2021-08-09 15:14 | NUR ---
Discharge Planning: DCP faces HCP/[facility] referral to [facility].
[2021-08-09] MEDS: GABAPENTIN 300 MG CAPSULE GT SCH (18:12)
--- NOTE | 2021-08-09 19:30 | NUR ---
PM ASSESSMENT REPORT RECEIVED FROM AM RN. PT RECEIVED IN BED WITH EYES CLOSED. VSS, NO S/S OF ACUTE DISTRESS NOTED. PT INTUBATED, VENT SETTINGS: AC 16, TV 500, FIO2 30%, PEEP 5. 100% PACED ON MONITOR. MICH PICC IN PLACE INFUSING IVF TKO. G TUBE IN PLACE RUNNING TF PER ORDERS. STEWART CATH DRAINING URINE TO GRAVITY. HOB ELEVATED, BED IN LOWEST POSITION, CALL LIGHT IN REACH. WILL CONTINUE TO MONITOR PT.
[2021-08-09] MEDS: FUROSEMIDE 20 MG/2 ML VIAL IVP SCH (20:08)
[2021-08-09] MEDS: ENOXAPARIN SODIUM 40 MG/0.4 ML SYRINGE SUBCUT SCH (20:09)
[2021-08-10] VITALS (27 sets, daily range): BP systolic 109–148
[2021-08-10] MEDS: NORMAL SALINE 5 ML DISP.SYRIN IVF SCH ×3 (05:20→21:25)
[2021-08-10 06:46] LABS: BASOPHILS % (AUTO) 0.8 % (0.0-2.0); EOSINOPHILS # (AUTO) 0.2 K/uL (0.0-0.4); EOSINOPHILS % (AUTO) 4.4 % (0.0-4.0); HEMATOCRIT 24.3 % (36-54); HEMOGLOBIN 8.1 g/dL (14.0-18.0); LYMPHOCYTES # (AUTO) 0.5 K/uL (1.0-5.5); LYMPHOCYTES % (AUTO) 9.5 % (20.5-51.5); MEAN CORPUSCULAR HEMOGLOBIN 29 pg (27-31); MEAN CORPUSCULAR HGB CONC 33 % (32-36); MEAN CORPUSCULAR VOLUME 88 fL (79.0-98.0); MONOCYTES # (AUTO) 0.4 K/uL (0.0-1.0); MONOCYTES % (AUTO) 6.5 % (1.7-9.3); NEUTROPHILS # (AUTO) 4.3 K/uL (1.8-7.7); NEUTROPHILS % (AUTO) 78.8 % (40.0-70.0); PLATELET COUNT (AUTO) 180 K/uL (130-430); RED BLOOD CELL COUNT(AUTO) 2.77 MIL/uL (4.2-6.2); RED CELL DISTRIBUTION WIDTH 18.6 % (9.0-15.0); WHITE BLOOD COUNT (AUTO) 5.4 K/uL (4.8-10.8)
[2021-08-10 07:04] LABS: ALANINE AMINOTRANSFERASE 13 U/L (12-78); ANION GAP 8 (5-15); ASPARTATE AMINOTRANSFERASE 25 U/L (10-37); CALCIUM 10.4 mg/dL (8.4-11.0); CHLORIDE 101 mmol/L (98-107); CREATININE 0.78 mg/dL (0.55-1.30); GLUCOSE 81 mg/dL (70-99); POTASSIUM 3.7 mmol/L (3.5-5.1); SODIUM SERUM 134 mmol/L (136-145); TOTAL BILIRUBIN 0.2 mg/dL (0.0-1.0); UREA NITROGEN, BLOOD 23 mg/dL (8-21)
[2021-08-10] MEDS: ACETYLCYSTEINE 10% 4 ML VIAL (RT) INH SCH (07:15)
[2021-08-10] MEDS: ALBUTEROL SULFATE 0.083% 2.5 MG/3 ML VIAL.NEB INH SCH ×4 (07:16→20:31)
--- NOTE | 2021-08-10 10:30 | NUR ---
RN NOTES AM CARE DONE, SACRAL WOUND DRESSINGS CHANGED. PATIENT TURN AND REPOSITIONED FOR COMFORT.KEP HOB ELEVATED TO PREVENT ASPIRATION.
[2021-08-10] MEDS: PANTOPRAZOLE SODIUM 40 MG/VIAL (PROTONIX) IVP SCH (10:33)
[2021-08-10] MEDS: LACTOBACILLUS RHAMNOSUS GG 1 CAP CAPSULE GT SCH (10:33)
[2021-08-10] MEDS: CYANOCOBALAMIN 1000 mCg TABLET GT SCH (10:33)
[2021-08-10] MEDS: FINASTERIDE 5 MG TABLET (PROSCAR) GT SCH (10:34)
[2021-08-10] MEDS: FUROSEMIDE 20 MG/2 ML VIAL IVP SCH ×2 (10:34→21:26)
[2021-08-10] MEDS: AMIODARONE HCL 200 MG TABLET NG SCH (10:35)
[2021-08-10] MEDS: CITALOPRAM HYDROBROMIDE 20 MG TABLET GT SCH (10:35)
[2021-08-10] MEDS: DOXAZOSIN MESYLATE 2 MG TABLET GT SCH (10:36)
[2021-08-10] MEDS: levETIRAcetam 500 MG in NS 100 ML IV SCH ×2 (10:37→21:24)
[2021-08-10] MEDS: BALSAM PERU/CASTOR OIL 56.7 GM OINT...G. TP SCH (11:35)
[2021-08-10] MEDS: GABAPENTIN 300 MG CAPSULE GT SCH (17:46)
--- NOTE | 2021-08-10 18:49 | NUR ---
Notes: all needs mets. vital sign stable, afebrile. no s/s of distress, on vent setting AC 16, TYV 500, FIO2 30%, PEEP 5. PICC LINE RIGHT UPPER WITH 2 LUMEN KVO RATE INFUSING, GOOD BLOOD RETURN. G-TUBE FEEDING. KEEP HOB ELEVATED. NO SIGNIFICANT CHANGES OF CONDITION NOTED.
[2021-08-10] MEDS: ENOXAPARIN SODIUM 40 MG/0.4 ML SYRINGE SUBCUT SCH (21:27)
--- NOTE | 2021-08-10 21:45 | NUR ---
Patient awake on and off non - verbal endo tracheal suction up right position moderate amount of thick sputum tolerated 02 SAT 97 % chest movement shallow also symmetrical skin dry warm activity tolerated .
--- NOTE | 2021-08-10 23:33 | NUR ---
Family Members here & @ the bedside .
[2021-08-11] VITALS (30 sets, daily range): BP systolic 112–134
--- NOTE | 2021-08-11 01:17 | NUR ---
Reposition & Turning patient on Two hour schedule off loading with pillows comfort measures implemented & helpful , activity tolerated no SOB noted kept clean also dry as needed .
--- NOTE | 2021-08-11 06:00 | NUR ---
PATIENT awake on and off HOB kept elevated chest movement symmetrical , kept clean also dry as needed position change tolerated .
[2021-08-11] MEDS: NORMAL SALINE 5 ML DISP.SYRIN IVF SCH ×3 (06:41→21:15)
--- NOTE | 2021-08-11 07:20 | NUR ---
Opening notes Received report from endorsing table games shift manager RN for continuity of care. Patient is lying on bed in no signs of active distress. Checked vital signs heart rate 70, respiration 20, SPO2 97%, and blood pressure of 119/80. Vent AC of 16, tidal volume 500, FIO2 30%, and peep of 5. Powell catheter is in place draining to gravity yellow. Bed is locked at lowest position, fall and safety precautions is in place. Will continue to monitor.
[2021-08-11] MEDS: levETIRAcetam 500 MG in NS 100 ML IV SCH ×2 (08:05→21:14)
[2021-08-11] MEDS: DOXAZOSIN MESYLATE 2 MG TABLET GT SCH (08:13)
[2021-08-11] MEDS: CITALOPRAM HYDROBROMIDE 20 MG TABLET GT SCH (08:13)
[2021-08-11] MEDS: LACTOBACILLUS RHAMNOSUS GG 1 CAP CAPSULE GT SCH (08:13)
[2021-08-11] MEDS: AMIODARONE HCL 200 MG TABLET NG SCH (08:15)
[2021-08-11] MEDS: PANTOPRAZOLE SODIUM 40 MG/VIAL (PROTONIX) IVP SCH (08:16)
[2021-08-11] MEDS: FUROSEMIDE 20 MG/2 ML VIAL IVP SCH ×2 (08:16→21:13)
[2021-08-11] MEDS: CYANOCOBALAMIN 1000 mCg TABLET GT SCH (08:18)
[2021-08-11] MEDS: FINASTERIDE 5 MG TABLET (PROSCAR) GT SCH (08:19)
--- NOTE | 2021-08-11 08:20 | NUR ---
Dr. Arvizu is at bedside assessing the patient. No new orders given.
[2021-08-11] MEDS: BALSAM PERU/CASTOR OIL 56.7 GM OINT...G. TP SCH (08:21)
--- NOTE | 2021-08-11 11:15 | NUR ---
Patient's daughter at bedside, wants to talk to Dr. Mejia regarding the treatment of care.
--- NOTE | 2021-08-11 12:35 | NUR ---
Dr. Mejia called back and asked the situation of the patient. Gave the number of the daughter for them to talk about the treatment. No new order given.
[2021-08-11] MEDS: ALBUTEROL SULFATE 0.083% 2.5 MG/3 ML VIAL.NEB INH SCH ×3 (15:40→19:10)
[2021-08-11] MEDS: ACETYLCYSTEINE 10% 4 ML VIAL (RT) INH SCH (15:41)
--- NOTE | 2021-08-11 17:24 | NUR ---
Nutrition F/U RD reviewed pt's current EMR record including diet Hx, physician notes, nursing notes, pertinent labs/meds/procedures, care trends, and care activity. Admitting Diagnosis Hypoxia Reviewed Pertinent Medical/Surgical Hx Medical Record Medical History Comment: PMH: CAD, CVA, CHF, atrial fibrillation, BPH. SARS-CoV-2 Ag (Rapid) Negative (07/26) Pt is also admitted w/ sepsis, UTI, pneumonia, acute respitatory failure, leukocytosis, hyponatremia, CHARLY, hyperglycemia, lactic acid, transaminitis, hypoalbuminemia, protein calorie malnutrition, CHF, benign prostatic hypertrophy, dysphagia, s/p PEG. Subjective Information Per EMR reviewe, pt remain intubated and lethargic. Skin risk score of 12 noted with medial coccyx wound (80% red, 20% pink tissue), +3 pitting edema on bilateral arms. Abdomen is soft and non-distended, BM x 1 noted yesterday. Per nursing, current TF rate is running at 45ml/hr with residual of 10ml noted today with intake of 990ml (08/11). New estimated needs adjustment, current TF is appropriated for pt at this time. Current Diet Order/Nutrition Support Vital AF 1.2 at 55 ml/hr, Alfonzo BID, Free Water Flush: 150 ml Q6h via GT x3 days Patient/Significant Other Unable To Verbalize Education Provided Not Indicated Pertinent Medications Lasix, VIT B12, protonix IV, neurontin, lovenox, culturelle, VIT B12, amiodarone Pertinent Labs (08/10) Na: 134L , BUN: 23H, Alb: 2.0L Height (Feet) 6 feet Height (Inches) 1.00 inches Weight (Pounds) 178 pounds -- stable since 07/28 Weight (Calculated Kilograms) 80.551361 kilograms Patient Weight 80.739 kg Body Mass Index 23.48 kg/m2 %IBW 98 Last BM Jul 28, 2021 NEW Estimated Energy Expenditure (kcals/day) 1438 kcal (PSU d/t critical illness, intubated -- Ve: 0.5; Tmax: 36.6'C) Estimated Protein Required (g/day) 97-121 (1.2-1.5 gm/kg CBW d/t acute state, wound healing) Estimated Fluid Required (l/day) 1.7 (1 ml/kcal/day for maintenance) Problem/Etiology/Signs/Symptoms Increased nutritional needs R/T metabolic demands AEB estimated nutritional requirements for acute state. *ongoing Expected Outcomes/Goals - Monitor TF initiating & intakes w/ goal of pt meeting >80% of estimated nutritional needs, labs trending WNL, normal GI function, and skin integrity/wt maintenance. Dietitian Recommendations * Cont Vital AF 1.2 at 45 ml/hr (new goal rate), Alfonzo BID, Free Water Flush: 150 ml Q6h via GT Provides: 1476 kcal/day, 97 gm protein/day, and 1671 ml free water/day Follow Up High Risk: F/U in 2-3 days
--- NOTE | 2021-08-11 17:54 | NUR ---
MD DR Sanaz BABCOCK ASKED STAFF TO TAKE HIS NAME AND DR NETTLES'S NAME FROM THE PT. ADMITTING DEPT MADE AWARE.
[2021-08-11] MEDS: GABAPENTIN 300 MG CAPSULE GT SCH (18:52)
[2021-08-11] MEDS: ENOXAPARIN SODIUM 40 MG/0.4 ML SYRINGE SUBCUT SCH (21:12)
[2021-08-12] VITALS (31 sets, daily range): BP systolic 112–147
[2021-08-12] MEDS: NORMAL SALINE 5 ML DISP.SYRIN IVF SCH ×3 (06:26→21:52)
[2021-08-12] MEDS: ALBUTEROL SULFATE 0.083% 2.5 MG/3 ML VIAL.NEB INH SCH ×4 (07:14→21:10)
[2021-08-12] MEDS: ACETYLCYSTEINE 10% 4 ML VIAL (RT) INH SCH (07:14)
[2021-08-12] MEDS: BALSAM PERU/CASTOR OIL 56.7 GM OINT...G. TP SCH (09:00)
[2021-08-12] MEDS: AMIODARONE HCL 200 MG TABLET NG SCH (09:25)
[2021-08-12] MEDS: CITALOPRAM HYDROBROMIDE 20 MG TABLET GT SCH (09:26)
[2021-08-12] MEDS: FUROSEMIDE 20 MG/2 ML VIAL IVP SCH ×2 (09:26→21:50)
[2021-08-12] MEDS: PANTOPRAZOLE SODIUM 40 MG/VIAL (PROTONIX) IVP SCH (09:26)
[2021-08-12] MEDS: CYANOCOBALAMIN 1000 mCg TABLET GT SCH (09:26)
[2021-08-12] MEDS: LACTOBACILLUS RHAMNOSUS GG 1 CAP CAPSULE GT SCH (09:27)
[2021-08-12] MEDS: DOXAZOSIN MESYLATE 2 MG TABLET GT SCH (09:27)
[2021-08-12] MEDS: FINASTERIDE 5 MG TABLET (PROSCAR) GT SCH (09:28)
[2021-08-12] MEDS: levETIRAcetam 500 MG in NS 100 ML IV SCH ×2 (09:29→21:49)
--- NOTE | 2021-08-12 13:30 | NUR ---
Dr. Gutierrez with a consult, spoke with Kinjal from doctors office
[2021-08-12] MEDS: GABAPENTIN 300 MG CAPSULE GT SCH (19:27)
[2021-08-12] MEDS: ENOXAPARIN SODIUM 40 MG/0.4 ML SYRINGE SUBCUT SCH (21:49)
[2021-08-13] VITALS (30 sets, daily range): BP systolic 107–137
[2021-08-13] MEDS: NORMAL SALINE 5 ML DISP.SYRIN IVF SCH ×3 (06:54→23:26)
[2021-08-13 07:19] LABS: BASOPHILS # (AUTO) 0.1 K/uL (0.0-0.2); BASOPHILS % (AUTO) 1.1 % (0.0-2.0); EOSINOPHILS # (AUTO) 0.4 K/uL (0.0-0.4); EOSINOPHILS % (AUTO) 6.7 % (0.0-4.0); HEMATOCRIT 25.6 % (36-54); HEMOGLOBIN 8.4 g/dL (14.0-18.0); LYMPHOCYTES # (AUTO) 0.9 K/uL (1.0-5.5); MEAN CORPUSCULAR HEMOGLOBIN 29 pg (27-31); MEAN CORPUSCULAR HGB CONC 33 % (32-36); MEAN CORPUSCULAR VOLUME 89 fL (79.0-98.0); MONOCYTES # (AUTO) 0.5 K/uL (0.0-1.0); MONOCYTES % (AUTO) 9.3 % (1.7-9.3); NEUTROPHILS # (AUTO) 3.9 K/uL (1.8-7.7); NEUTROPHILS % (AUTO) 67.9 % (40.0-70.0); PLATELET COUNT (AUTO) 244 K/uL (130-430); RED BLOOD CELL COUNT(AUTO) 2.88 MIL/uL (4.2-6.2); RED CELL DISTRIBUTION WIDTH 18.6 % (9.0-15.0); WHITE BLOOD COUNT (AUTO) 5.8 K/uL (4.8-10.8)
[2021-08-13] MEDS: ACETYLCYSTEINE 10% 4 ML VIAL (RT) INH SCH (07:34)
[2021-08-13] MEDS: ALBUTEROL SULFATE 0.083% 2.5 MG/3 ML VIAL.NEB INH SCH ×4 (07:34→19:59)
--- NOTE | 2021-08-13 08:00 | NUR ---
ASSUMED CARE FROM RAYMUNDO GIANG. ASSUMED ALL CARE.
[2021-08-13 08:07] LABS: ANION GAP 5 (5-15); CALCIUM 10.2 mg/dL (8.4-11.0); CHLORIDE 103 mmol/L (98-107); CREATININE 0.73 mg/dL (0.55-1.30); GLUCOSE 97 mg/dL (70-99); POTASSIUM 3.6 mmol/L (3.5-5.1); SODIUM SERUM 135 mmol/L (136-145); UREA NITROGEN, BLOOD 24 mg/dL (8-21)
--- NOTE | 2021-08-13 08:30 | NUR ---
rt notes 0830 Dr. Mejia switched pt to CPAP 5, PS 10. Pt tolerating well, saturating 98%. will continue to monitor pt.
--- NOTE | 2021-08-13 08:55 | NUR ---
DR. SALOMON AT BEDSIDE, PLACED PT ON CPAP, PT TO PLACED BACK ON VENT IF NOT TOLERATED. AWAITING POA TO VERIFY PT WOULD NOT LIKE TO HAVE TRACH PLACEMENT PER DAUGHTER. IF PT POA DOES NOT WANT TRACH PLACED. PT WILL BE WITHDRAWN FOR ETT AND PLACED ON MORPHINE DRIP.
[2021-08-13] MEDS: PANTOPRAZOLE SODIUM 40 MG/VIAL (PROTONIX) IVP SCH (09:55)
[2021-08-13] MEDS: LACTOBACILLUS RHAMNOSUS GG 1 CAP CAPSULE GT SCH (09:57)
[2021-08-13] MEDS: CITALOPRAM HYDROBROMIDE 20 MG TABLET GT SCH (09:57)
[2021-08-13] MEDS: FUROSEMIDE 20 MG/2 ML VIAL IVP SCH ×2 (09:57→20:42)
--- NOTE | 2021-08-13 09:58 | NUR ---
PHARMACY MADE AWARE PT'S KEPPRA, PROSCAR, B12 MISSING IN PYXSIS. ALL OTHER MEDS GIVEN AND TOLERATED WELL.
[2021-08-13] MEDS: DOXAZOSIN MESYLATE 2 MG TABLET GT SCH (10:37)
[2021-08-13] MEDS: FINASTERIDE 5 MG TABLET (PROSCAR) GT SCH (10:38)
[2021-08-13] MEDS: ENOXAPARIN SODIUM 80 MG/0.8 ML SYRINGE SUBCUT SCH ×2 (10:39→20:43)
[2021-08-13] MEDS: AMIODARONE HCL 200 MG TABLET NG SCH (10:40)
[2021-08-13] MEDS: CYANOCOBALAMIN 1000 mCg TABLET GT SCH (10:40)
[2021-08-13] MEDS: BALSAM PERU/CASTOR OIL 56.7 GM OINT...G. TP SCH (10:42)
[2021-08-13] MEDS: levETIRAcetam 500 MG in NS 100 ML IV SCH ×2 (10:43→20:41)
--- NOTE | 2021-08-13 15:30 | NUR ---
TF CHANGED, PT GIVEN BED BATH AND LINEN CHANGE, TOLERATED ACTIVITY WELL.
--- NOTE | 2021-08-13 16:03 | NUR ---
I have spoken to patient's daughter, Brii, multiple times today. She is trying to decide if she wants her father to be terminally extubated, have a tracheostomy placed or let her father continue to be weaned off the ventilator. The person the patient designated for health care decisions Ton Nichole, is in agreement with the daughter's wishes. The daughter consulted her lithographers printer who told her, she is the decision maker as next of kin, because the patient's wishes for health care decisions is not a durable power of mergers and acquisitions attorney. The daughter is also requesting the patient be transferred to [facility] because it is closer to [place] where she lives. I explained that hospitals are currently not accepting lateral and family request transfers due to hospitals being at capacity due to covid. I also explained she would be responsible for the cost of transportation and and care at [facility] because the patient has Medicare and Medicare does not pay the accepting hospital in a transport that is a family request. The daughter plans to discuss her father's condition further with the doctors and decide what she wants to do regarding her father's care in the next few days.
--- NOTE | 2021-08-13 16:15 | NUR ---
rt notes 1615 Placed pt back to AC mode. Pt was desaturating, and not pulling adequate volume. will continue to monitor pt.
[2021-08-13] MEDS: GABAPENTIN 300 MG CAPSULE GT SCH (17:28)
--- NOTE | 2021-08-13 17:28 | NUR ---
RECEIVED PT FROM RAYMUNDO DE LA ROSA. ASSUMED ALL CARE. Addendum: 08/13/21 at 1731 by Dwaine Dotson RN WRONG TIME
--- NOTE | 2021-08-13 19:30 | NUR ---
PM ASSESSMENT REPORT RECEIVED FROM AM RN. PT RECEIVED IN BED WITH EYES CLOSED, RESPONDING TO TACTILE STIMULATION. VSS, NO S/S OF ACUTE DISTRESS NOTED. PT INTUBATED, VENT SETTINGS: AC 16, TV 500, FIO2 30%, PEEP 5. MICH PICC IN PLACE RUNNING NS TKO. G TUBE IN PLACE INFUSING TF PER ORDERS. STEWART CATH IN PLACE DRAINING URINE TO GRAVITY. HOB ELEVATED, BED IN LOWEST POSITION, CALL LIGHT IN REACH. WILL CONTINUE TO MONITOR PT.
--- NOTE | 2021-08-13 19:37 | NUR ---
cleanse wound NSS apply venelex ointment wound bed apply barrier cream periwound cover with foam dressing monitor .
--- NOTE | 2021-08-13 19:38 | NUR ---
cleanse wound NSS apply venelex ointment wound bed apply barrier cream periwound cover with foam dressing monitor .
--- NOTE | 2021-08-13 19:38 | NUR ---
ENDORSED ALL CARE TO RAYMUNDO CHAN. ALL QUESTIONS AND CONCERNS ADDRESSED.
[2021-08-14] VITALS (29 sets, daily range): BP systolic 104–128
[2021-08-14] MEDS: NORMAL SALINE 5 ML DISP.SYRIN IVF SCH ×3 (05:31→21:58)
[2021-08-14] MEDS: ALBUTEROL SULFATE 0.083% 2.5 MG/3 ML VIAL.NEB INH SCH ×4 (07:08→19:30)
[2021-08-14] MEDS: ACETYLCYSTEINE 10% 4 ML VIAL (RT) INH SCH (07:09)
--- NOTE | 2021-08-14 07:34 | NUR ---
DR. SALOMON MET WITH AND ASSESSED PT. HE STATED HE WILL NEED CLARIFICATION ON WHO IS THE PT'S SENIOR BIOINFORMATICS SCIENTIST, THIS NURSE WILL CALL SENIOR BIOINFORMATICS SCIENTIST FOR CLARIFICATION. NO NEW ORDERS REGARDING PT.
--- NOTE | 2021-08-14 07:59 | NUR ---
DR. ALAMO MET WITH AND ASSESSED PT. NO NEW ORDERS. INFORMED HIM PROFESSOR OF ART HISTORY NEEDS TO CLARIFY POA AND DR. SALOMON WILL CALL THEM FOR POC.
--- NOTE | 2021-08-14 08:00 | NUR ---
RECEIVED PT FROM RAYMUNDO CHAN. ASSUMED ALL CARE.
[2021-08-14] MEDS: FINASTERIDE 5 MG TABLET (PROSCAR) GT SCH (08:48)
[2021-08-14] MEDS: levETIRAcetam 500 MG in NS 100 ML IV SCH ×2 (08:48→22:46)
[2021-08-14] MEDS: LACTOBACILLUS RHAMNOSUS GG 1 CAP CAPSULE GT SCH (08:50)
[2021-08-14] MEDS: CITALOPRAM HYDROBROMIDE 20 MG TABLET GT SCH (08:50)
[2021-08-14] MEDS: AMIODARONE HCL 200 MG TABLET NG SCH (08:50)
[2021-08-14] MEDS: PANTOPRAZOLE SODIUM 40 MG/VIAL (PROTONIX) IVP SCH (08:51)
[2021-08-14] MEDS: DOXAZOSIN MESYLATE 2 MG TABLET GT SCH (08:52)
[2021-08-14] MEDS: FUROSEMIDE 20 MG/2 ML VIAL IVP SCH ×2 (08:52→21:57)
[2021-08-14] MEDS: ENOXAPARIN SODIUM 80 MG/0.8 ML SYRINGE SUBCUT SCH ×2 (08:53→21:58)
[2021-08-14] MEDS: CYANOCOBALAMIN 1000 mCg TABLET GT SCH (08:53)
[2021-08-14] MEDS: BALSAM PERU/CASTOR OIL 56.7 GM OINT...G. TP SCH (08:54)
--- NOTE | 2021-08-14 11:30 | NUR ---
DAUGHTER TONY MADE AWARE THAT TWO PROGRESS NOTES ONE FROM DR. SALOMON AND ONE FROM DR. ALAMO HAVE BEEN PLACED IN THE PT'S CHART, TO BE GIVEN TO HER TO USE FOR LEGAL PURPOSE. TONY VERBALIZED UNDERSTANDING. SPOKE TO EUGENE AND CLARIFIED THAT TONY IS POA. PAGED DR. SALOMON TO MAKE HIM AWARE.
--- NOTE | 2021-08-14 14:00 | NUR ---
DR. WOLFF MADE AWARE TONY IS POA, HE STATED TO CALL HER AND SEE IF SHE WANTS THE PT EXTUBATED, IF SO TO CLARIFY CODE STATUS. CALLED TONY AND MADE HER AWARE. TONY STATED SHE HAS MORE QUESTIONS FOR DR. SALOMON. PAGED DR. SALOMON A SECOND TIME. AWAITING CALL BACK.
--- NOTE | 2021-08-14 16:00 | NUR ---
SPOKE TO DR. SALOMON AND MADE HIM AWARE TONY WOULD LIKE TO SPEAK TO HIM. HE STATED HE IS VERY BUSY AND MOST LIKELY WILL NOT BE ABLE TO CALL HER UNTIL TOMORROW. CALLED TONY TO MAKE HER AWARE, AWAITING CALL BACK.
--- NOTE | 2021-08-14 16:10 | NUR ---
PT PLACED ON CPAP TRIAL BUT WENT APNEIC AND PLACED BACK ON VENT TO ORIGINAL SETTINGS. NO RESP DISTRESS NOTED AT THIS TIME.
--- NOTE | 2021-08-14 17:33 | NUR ---
PT GIVEN PARTIAL BED BATH, TF CHANGE AND GOWN CX. NO S/S OF DISCOMFORT OR SOB NOTED.
--- NOTE | 2021-08-14 17:34 | NUR ---
1555 TRIED PT ON CPAP. PT APNEIC A FEW TIMES WITH COACHING TO TAKE DEEP BREATH. PLACED PT BACK TO AC. RN AWARE. Addendum: 08/14/21 at 1735 by Dena Pierre RT Amended: Links added.
[2021-08-14] MEDS: GABAPENTIN 300 MG CAPSULE GT SCH (18:17)
--- NOTE | 2021-08-14 19:37 | NUR ---
ENDORSED ALL CARE TO RAYMUNDO CLINE. ALL QUESTIONS AND CONCERNS ADDRESSED.
[2021-08-15] VITALS (26 sets, daily range): BP systolic 108–137
[2021-08-15] MEDS: NORMAL SALINE 5 ML DISP.SYRIN IVF SCH ×3 (05:26→21:59)
[2021-08-15 06:49] LABS: BASOPHILS % (AUTO) 0.7 % (0.0-2.0); EOSINOPHILS # (AUTO) 0.2 K/uL (0.0-0.4); HEMATOCRIT 24.7 % (36-54); HEMOGLOBIN 8.1 g/dL (14.0-18.0); LYMPHOCYTES # (AUTO) 0.6 K/uL (1.0-5.5); LYMPHOCYTES % (AUTO) 9.5 % (20.5-51.5); MEAN CORPUSCULAR HEMOGLOBIN 29 pg (27-31); MEAN CORPUSCULAR HGB CONC 33 % (32-36); MEAN CORPUSCULAR VOLUME 88 fL (79.0-98.0); MONOCYTES # (AUTO) 0.4 K/uL (0.0-1.0); MONOCYTES % (AUTO) 6.6 % (1.7-9.3); NEUTROPHILS # (AUTO) 4.9 K/uL (1.8-7.7); NEUTROPHILS % (AUTO) 79.2 % (40.0-70.0); PLATELET COUNT (AUTO) 233 K/uL (130-430); RED BLOOD CELL COUNT(AUTO) 2.82 MIL/uL (4.2-6.2); RED CELL DISTRIBUTION WIDTH 19.2 % (9.0-15.0); WHITE BLOOD COUNT (AUTO) 6.2 K/uL (4.8-10.8)
[2021-08-15 07:19] LABS: ALANINE AMINOTRANSFERASE 14 U/L (12-78); ALBUMIN 1.9 g/dL (3.4-4.8); ANION GAP 8 (5-15); ASPARTATE AMINOTRANSFERASE 24 U/L (10-37); CALCIUM 9.8 mg/dL (8.4-11.0); CHLORIDE 97 mmol/L (98-107); CREATININE 0.77 mg/dL (0.55-1.30); GLUCOSE 91 mg/dL (70-99); POTASSIUM 3.3 mmol/L (3.5-5.1); SODIUM SERUM 133 mmol/L (136-145); TOTAL BILIRUBIN 0.2 mg/dL (0.0-1.0); UREA NITROGEN, BLOOD 29 mg/dL (8-21)
--- NOTE | 2021-08-15 07:45 | NUR ---
DR SALOMON: DR SALOMON SPOKE WITH DAUGHTER. CPAP TRIAL INITIATED.
[2021-08-15] MEDS: ALBUTEROL SULFATE 0.083% 2.5 MG/3 ML VIAL.NEB INH SCH ×3 (08:45→19:30)
[2021-08-15] MEDS: ACETYLCYSTEINE 10% 4 ML VIAL (RT) INH SCH (08:45)
[2021-08-15] MEDS: CITALOPRAM HYDROBROMIDE 20 MG TABLET GT SCH (10:39)
[2021-08-15] MEDS: DOXAZOSIN MESYLATE 2 MG TABLET GT SCH (10:41)
[2021-08-15] MEDS: AMIODARONE HCL 200 MG TABLET NG SCH (10:42)
[2021-08-15] MEDS: LACTOBACILLUS RHAMNOSUS GG 1 CAP CAPSULE GT SCH (10:42)
[2021-08-15] MEDS: FUROSEMIDE 20 MG/2 ML VIAL IVP SCH ×2 (10:43→21:59)
[2021-08-15] MEDS: CYANOCOBALAMIN 1000 mCg TABLET GT SCH (10:44)
[2021-08-15] MEDS: FINASTERIDE 5 MG TABLET (PROSCAR) GT SCH (10:46)
[2021-08-15] MEDS: ENOXAPARIN SODIUM 80 MG/0.8 ML SYRINGE SUBCUT SCH ×2 (10:47→22:00)
[2021-08-15] MEDS: BALSAM PERU/CASTOR OIL 56.7 GM OINT...G. TP SCH (10:47)
[2021-08-15] MEDS: PANTOPRAZOLE SODIUM 40 MG/VIAL (PROTONIX) IVP SCH (10:47)
[2021-08-15] MEDS: levETIRAcetam 500 MG in NS 100 ML IV SCH ×2 (11:44→21:58)
--- NOTE | 2021-08-15 16:16 | NUR ---
CPAP: PT BECAME TACHYPNEIC, SWITCHED BACK TO AC MODE. WILL CONTINUE TO MONITOR.
--- NOTE | 2021-08-15 17:37 | NUR ---
1616 placed pt back to ac. tangela zhou. will cont to jessica. Addendum: 08/15/21 at 1738 by Dena Pierre RT Amended: Links added.
[2021-08-15] MEDS: GABAPENTIN 300 MG CAPSULE GT SCH (18:54)
--- NOTE | 2021-08-15 21:09 | NUR ---
Patient awake , eye open noted non - verbal Trach to ventilator suction up right position moderate amount of thick white sputum 02 SAT 97 % CHEST MOVEMENT SYMMETRICAL also UNLABORED / .
--- NOTE | 2021-08-15 22:48 | NUR ---
Family Here and @ the bedside .
[2021-08-16] VITALS (30 sets, daily range): BP systolic 115–142
--- NOTE | 2021-08-16 05:49 | NUR ---
Reposition & Turn patient bed bath given , linin change off loading with pillows COMFORT MEASURES also Implemented MINIMAL VENT ALARMING noted position tolerated / .
[2021-08-16] MEDS: NORMAL SALINE 5 ML DISP.SYRIN IVF SCH ×3 (05:58→22:00)
[2021-08-16 06:49] LABS: BASOPHILS % (AUTO) 0.7 % (0.0-2.0); EOSINOPHILS # (AUTO) 0.2 K/uL (0.0-0.4); EOSINOPHILS % (AUTO) 2.7 % (0.0-4.0); HEMATOCRIT 23.7 % (36-54); LYMPHOCYTES # (AUTO) 0.6 K/uL (1.0-5.5); LYMPHOCYTES % (AUTO) 8.4 % (20.5-51.5); MEAN CORPUSCULAR HEMOGLOBIN 29 pg (27-31); MEAN CORPUSCULAR HGB CONC 33 % (32-36); MEAN CORPUSCULAR VOLUME 88 fL (79.0-98.0); MONOCYTES # (AUTO) 0.4 K/uL (0.0-1.0); MONOCYTES % (AUTO) 5.4 % (1.7-9.3); NEUTROPHILS # (AUTO) 5.6 K/uL (1.8-7.7); NEUTROPHILS % (AUTO) 82.8 % (40.0-70.0); PLATELET COUNT (AUTO) 247 K/uL (130-430); RED BLOOD CELL COUNT(AUTO) 2.69 MIL/uL (4.2-6.2); RED CELL DISTRIBUTION WIDTH 19.8 % (9.0-15.0); WHITE BLOOD COUNT (AUTO) 6.7 K/uL (4.8-10.8)
[2021-08-16 07:12] LABS: ALANINE AMINOTRANSFERASE 8 U/L (12-78); ALBUMIN 1.8 g/dL (3.4-4.8); ANION GAP 8 (5-15); ASPARTATE AMINOTRANSFERASE 22 U/L (10-37); CALCIUM 9.7 mg/dL (8.4-11.0); CHLORIDE 99 mmol/L (98-107); CREATININE 0.76 mg/dL (0.55-1.30); GLUCOSE 96 mg/dL (70-99); POTASSIUM 3.4 mmol/L (3.5-5.1); SODIUM SERUM 134 mmol/L (136-145); TOTAL BILIRUBIN 0.3 mg/dL (0.0-1.0); UREA NITROGEN, BLOOD 29 mg/dL (8-21)
--- NOTE | 2021-08-16 08:00 | NUR ---
RT NOTES Dr Mendes is rounding, stated that family appears to be leaning towards compassionate extubation. No Cpap trial at this time.
[2021-08-16 08:43] LABS: HEMOGLOBIN 7.8 g/dL (14.0-18.0)
[2021-08-16] MEDS: BALSAM PERU/CASTOR OIL 56.7 GM OINT...G. TP SCH (09:00)
--- NOTE | 2021-08-16 10:11 | NUR ---
Nutrition F/U RD reviewed pt's current EMR record including diet Hx, physician notes, nursing notes, pertinent labs/meds/procedures, care trends, and care activity. Admitting Diagnosis Hypoxia Reviewed Pertinent Medical/Surgical Hx Medical Record Medical History Comment: PMH: CAD, CVA, CHF, atrial fibrillation, BPH. SARS-CoV-2 Ag (Rapid) Negative (07/26) Pt is also admitted w/ sepsis, UTI, pneumonia, acute respitatory failure, leukocytosis, hyponatremia, CHARLY, hyperglycemia, lactic acid, transaminitis, hypoalbuminemia, protein calorie malnutrition, CHF, benign prostatic hypertrophy, dysphagia, s/p PEG. Subjective Information: Pt remains in ICU, intubated on vent. RD bedside visit was deferred d/t high pt load. Per EMR review, possible terminal extubation, a/w family decision. Last BM 08/10 x1, abdomen is soft and nondistended. Pt was seen by community health specialist on 08/05/21 and noted: 1. Bilateral Buttocks: Area of erythema with MASD from IAD around superior aspect of perimeter of anus, which have converted to several stage 2 pressure ulcers with pink tissue and one stage 3 pressure ulcer with yellow tissue, present on admission. Omar scale: 11 per corncob pipes assembler and 3+ pitting edema to bilateral arm. EN rate: 45ml (08/16); GRV: 10ml (08/16). Current EN regimen remains appropriate. Current Diet Order/Nutrition Support Vital AF 1.2 at 45 ml/hr, Alfonzo BID, Free Water Flush: 150 ml Q6h via GT x4 days Pertinent Medications Lasix, VIT B12, lovenox, culturelle, VIT B12, zofran, dulcolax, colace Pertinent Labs (08/16) Na: 134L , K 23.4L, BG 96WNL, BUN: 29H, Cre 0.76 WNL. Height (Feet) 6 feet Height (Inches) 1.00 inches Weight (Pounds) 178 pounds -- stable since 07/28 Weight (Calculated Kilograms) 80.137340 kilograms Patient Weight 80.739 kg Body Mass Index 23.48 kg/m2 %IBW 98 Last BM Jul 28, 2021 Estimated Energy Expenditure (kcals/day) 1438 kcal (PSU d/t critical illness, intubated) Estimated Protein Required (g/day) 97-121 (1.2-1.5 gm/kg CBW d/t acute state, wound healing) Estimated Fluid Required (l/day) 1.7 (1 ml/kcal/day for maintenance) Problem/Etiology/Signs/Symptoms Increased nutritional needs R/T metabolic demands AEB estimated nutritional requirements for acute state. *ongoing Expected Outcomes/Goals - Monitor TF tolerance & intakes w/ goal of pt meeting >80% of estimated nutritional needs, labs trending WNL, normal GI function, and skin integrity/wt maintenance. Dietitian Recommendations * Continue Vital AF 1.2 at 45 ml/hr, Alfonzo BID, Free Water Flush: 150 ml Q6h via GT Provides: 1456 kcal/day, 86 gm protein/day, and 1476 ml free water/day Meets: 101% of estimated calorie needs and 89% of lower end of estimated protein needs. Follow Up High Risk: F/U in 2-3 days
[2021-08-16] MEDS: ALBUTEROL SULFATE 0.083% 2.5 MG/3 ML VIAL.NEB INH SCH ×4 (10:15→19:55)
[2021-08-16] MEDS: ACETYLCYSTEINE 10% 4 ML VIAL (RT) INH SCH (10:16)
[2021-08-16] MEDS: DOXAZOSIN MESYLATE 2 MG TABLET GT SCH (15:25)
[2021-08-16] MEDS: PANTOPRAZOLE SODIUM 40 MG/VIAL (PROTONIX) IVP SCH (15:27)
[2021-08-16] MEDS: levETIRAcetam 500 MG in NS 100 ML IV SCH (15:27)
[2021-08-16] MEDS: ENOXAPARIN SODIUM 80 MG/0.8 ML SYRINGE SUBCUT SCH (15:27)
[2021-08-16] MEDS: CITALOPRAM HYDROBROMIDE 20 MG TABLET GT SCH (15:28)
[2021-08-16] MEDS: FUROSEMIDE 20 MG/2 ML VIAL IVP SCH (15:28)
[2021-08-16] MEDS: LACTOBACILLUS RHAMNOSUS GG 1 CAP CAPSULE GT SCH (15:28)
[2021-08-16] MEDS: FINASTERIDE 5 MG TABLET (PROSCAR) GT SCH (15:30)
[2021-08-16] MEDS: AMIODARONE HCL 200 MG TABLET NG SCH (15:30)
[2021-08-16] MEDS: CYANOCOBALAMIN 1000 mCg TABLET GT SCH (15:31)
[2021-08-16] MEDS: GABAPENTIN 300 MG CAPSULE GT SCH (15:31)
[2021-08-17] VITALS (32 sets, daily range): BP systolic 107–153
[2021-08-17] MEDS: FUROSEMIDE 20 MG/2 ML VIAL IVP SCH ×3 (02:03→20:53)
[2021-08-17] MEDS: levETIRAcetam 500 MG in NS 100 ML IV SCH ×3 (02:03→20:55)
[2021-08-17] MEDS ORDERED: ENOXAPARIN SODIUM 80 MG/0.8 ML SYRINGE ONE (02:12)
[2021-08-17] MEDS: ENOXAPARIN SODIUM 80 MG/0.8 ML SYRINGE SUBCUT SCH ×3 (02:13→20:57)
[2021-08-17] MEDS: NORMAL SALINE 5 ML DISP.SYRIN IVF SCH ×2 (06:11→15:19)
--- NOTE | 2021-08-17 07:15 | NUR ---
Opening Notes Patient received with no signs of active distress. Patient able to open eyes, but does not follow commands. Patient receiving tubefeeding. Patient has a hilliard catheter draining urine. Safety precautions enforced.
[2021-08-17] MEDS: ACETYLCYSTEINE 10% 4 ML VIAL (RT) INH SCH (07:35)
[2021-08-17] MEDS: ALBUTEROL SULFATE 0.083% 2.5 MG/3 ML VIAL.NEB INH SCH ×4 (07:35→19:53)
[2021-08-17] MEDS: CYANOCOBALAMIN 1000 mCg TABLET GT SCH (09:00)
[2021-08-17] MEDS: FINASTERIDE 5 MG TABLET (PROSCAR) GT SCH (09:00)
[2021-08-17] MEDS: DOXAZOSIN MESYLATE 2 MG TABLET GT SCH (09:09)
[2021-08-17] MEDS: LACTOBACILLUS RHAMNOSUS GG 1 CAP CAPSULE GT SCH (09:09)
[2021-08-17] MEDS: CITALOPRAM HYDROBROMIDE 20 MG TABLET GT SCH (09:09)
[2021-08-17] MEDS: AMIODARONE HCL 200 MG TABLET NG SCH (09:10)
[2021-08-17] MEDS: PANTOPRAZOLE SODIUM 40 MG/VIAL (PROTONIX) IVP SCH (09:12)
[2021-08-17] MEDS: BALSAM PERU/CASTOR OIL 56.7 GM OINT...G. TP SCH (10:22)
--- NOTE | 2021-08-17 13:10 | NUR ---
RT NOTES Dr Mendes at bedside, witnessed pt. had no breathing effort when on CPAP settings. . to speak to pt's dtr.
[2021-08-17] MEDS: GABAPENTIN 300 MG CAPSULE GT SCH (17:09)
--- NOTE | 2021-08-17 19:30 | NUR ---
Opening Note Patient is resting in bed and all VSS. All care has been assumed.
--- NOTE | 2021-08-17 20:00 | NUR ---
Patients daughter at bedside requesting to speak with Dr. Mendes about status and ventilator. Dr. Mendes has been paged.
--- NOTE | 2021-08-17 20:39 | NUR ---
MD DESTINEE GÓMEZ (PT FAMILY REQUESTED TO SPEAK TO DOCTOR) SPOKE TO: RUT
[2021-08-18] VITALS (30 sets, daily range): BP systolic 94–153
[2021-08-18] MEDS: NORMAL SALINE 5 ML DISP.SYRIN IVF SCH ×4 (00:54→22:22)
[2021-08-18 06:55] LABS: EOSINOPHILS # (AUTO) 0.3 K/uL (0.0-0.4); EOSINOPHILS % (AUTO) 5.9 % (0.0-4.0); HEMATOCRIT 26.4 % (36-54); HEMOGLOBIN 8.5 g/dL (14.0-18.0); LYMPHOCYTES # (AUTO) 0.7 K/uL (1.0-5.5); LYMPHOCYTES % (AUTO) 13.7 % (20.5-51.5); MEAN CORPUSCULAR HEMOGLOBIN 29 pg (27-31); MEAN CORPUSCULAR HGB CONC 32 % (32-36); MEAN CORPUSCULAR VOLUME 90 fL (79.0-98.0); MONOCYTES # (AUTO) 0.5 K/uL (0.0-1.0); MONOCYTES % (AUTO) 10.3 % (1.7-9.3); NEUTROPHILS # (AUTO) 3.5 K/uL (1.8-7.7); NEUTROPHILS % (AUTO) 69.1 % (40.0-70.0); PLATELET COUNT (AUTO) 303 K/uL (130-430); RED BLOOD CELL COUNT(AUTO) 2.95 MIL/uL (4.2-6.2); RED CELL DISTRIBUTION WIDTH 19.4 % (9.0-15.0)
[2021-08-18] MEDS: ALBUTEROL SULFATE 0.083% 2.5 MG/3 ML VIAL.NEB INH SCH ×3 (07:24→19:40)
[2021-08-18] MEDS: ACETYLCYSTEINE 10% 4 ML VIAL (RT) INH SCH (07:24)
[2021-08-18 07:49] LABS: ALANINE AMINOTRANSFERASE 12 U/L (12-78); ANION GAP 7 (5-15); ASPARTATE AMINOTRANSFERASE 22 U/L (10-37); CHLORIDE 103 mmol/L (98-107); CREATININE 0.84 mg/dL (0.55-1.30); GLUCOSE 95 mg/dL (70-99); POTASSIUM 3.4 mmol/L (3.5-5.1); SODIUM SERUM 139 mmol/L (136-145); TOTAL BILIRUBIN 0.3 mg/dL (0.0-1.0); UREA NITROGEN, BLOOD 28 mg/dL (8-21)
--- NOTE | 2021-08-18 09:10 | NUR ---
RT NOTES Dr Mendes rounding now, made aware of no breathing effort on cpap, Dr tried SIMV, no respiratory efforts noted either. Vent back to AC, rate to 12.
--- NOTE | 2021-08-18 09:19 | NUR ---
DR. LAW AT [facility], RECEIVED ORDER FOR KCL 20MEQ IVPB X1 NOW FOR K+= 3.[address]. INFORMED [address] LAW THAT DAUGHTER TONY WOULD LIKE TO SPEAK TO HER AND GAVE DR. LAW THE CONTACT INFO, SHE STATED SHE WILL CALL THE TONY. PT HAD TRAIL CPAP AND WENT APNEIC. PT PUT BACK ON ORIGINAL VENT SETTINGS.
[2021-08-18] MEDS ORDERED: KCL 20 mEq in 100 mL (PREMIX) 100 ML IV ONE (09:30)
[2021-08-18] MEDS: CYANOCOBALAMIN 1000 mCg TABLET GT SCH (09:43)
[2021-08-18] MEDS: FINASTERIDE 5 MG TABLET (PROSCAR) GT SCH (09:43)
[2021-08-18] MEDS: FUROSEMIDE 20 MG/2 ML VIAL IVP SCH ×2 (09:43→22:21)
[2021-08-18] MEDS: LACTOBACILLUS RHAMNOSUS GG 1 CAP CAPSULE GT SCH (09:43)
[2021-08-18] MEDS: DOXAZOSIN MESYLATE 2 MG TABLET GT SCH (09:44)
[2021-08-18] MEDS: AMIODARONE HCL 200 MG TABLET NG SCH (09:45)
[2021-08-18] MEDS: CITALOPRAM HYDROBROMIDE 20 MG TABLET GT SCH (09:45)
[2021-08-18] MEDS: PANTOPRAZOLE SODIUM 40 MG/VIAL (PROTONIX) IVP SCH (09:46)
[2021-08-18] MEDS: BALSAM PERU/CASTOR OIL 56.7 GM OINT...G. TP SCH (09:50)
[2021-08-18] MEDS: levETIRAcetam 500 MG in NS 100 ML IV SCH ×2 (09:52→22:22)
[2021-08-18] MEDS: ENOXAPARIN SODIUM 80 MG/0.8 ML SYRINGE SUBCUT SCH ×2 (09:53→22:19)
--- NOTE | 2021-08-18 11:35 | NUR ---
RT NOTES leak noted from ETT, cuff does not appear to be holding air added. a/w appears to be in place, awaiting cxr.
[2021-08-18] MEDS ORDERED: ETOMIDATE 20 MG/ 10 ML VIAL (AMIDATE) ONE (13:17)
--- NOTE | 2021-08-18 13:20 | NUR ---
RN NOTES DR. BALLARD HERE TO CHANGE PATIENT'S ET TUBE (BUSTED CUFF). PATIENT WAS PRE-MEDICATED WITH ETOMIDATE 20 MG AND ROCURONIUM 100MG IVP.
--- NOTE | 2021-08-18 13:40 | NUR ---
RT NOTES pt was bagged with 100% O2 via resus. bag to ETT while waiting for ETT to be changed by Dr Finley (busted cuff). Same size ETT 7.[address] sanders at 26cm lipline. Mist noted on ETT and bilateral b/s/chest rise ntd. awaiting cxr to confirm placement.
--- NOTE | 2021-08-18 13:40 | NUR ---
RN NOTES CHEST X-RAY DONE TO CHECK ET TUBE PLACEMENT.
[2021-08-18] MEDS ORDERED: ROCURONIUM BROMIDE 10 MG/ML (ZEMURON) IV ONE (15:11)
--- NOTE | 2021-08-18 16:00 | NUR ---
RT NOTES Followed up w/ charge nurse regarding cxr post ETT placement.
[2021-08-18] MEDS: GABAPENTIN 300 MG CAPSULE GT SCH (18:01)
--- NOTE | 2021-08-18 19:46 | NUR ---
ENDORSED ALL CARE TO RAYMUNDO CROCKETT. ETT PLACEMENT VERIFIED BY XRAY.
[2021-08-19] VITALS (28 sets, daily range): BP systolic 108–132
--- NOTE | 2021-08-19 | NUR ---
Receive the patient from AM RN patient is vent with vent settings of A/c 16, AV of 500, FiO2 30% Peep of 5. HOB elevated to prevent aspiration, side rails up X2 and bed brakes in an on position. Patient is not alert and only response to pain stimuli. He is unable to make his need known. Patient with a R upper arm PICC line 2L. Patient is pace with HR in the low 100 at this time. Notice patient with both upper and lower extremities edema. Feeding tube in place, feeding running at 45cc/ hr and it is the goal at this time. Patient is in contact isolation Feeding tube placement confirmed and residual noted less than 10cc. Abdomen soft and non distended, bowel sound present in all 4Q. All need anticipated. Kept clean dry and comfortable. Call light with in reach at all times Patients daughter came to see the patient and was able to visit with in for some times. Good oral care provided Q2hrs and PRN Received a call from the quality control lab technician for the patient to have his CT of the head a routine order was place. Took the patient to the CT scan with the help and assistance of the patient RT and the quality control lab technician. No event noted during or after the procedure. Still following all contact isolation precaution per facility protocol. Turned and reposition Q2hrs and prn The Tech from the doctor that wrote the result of the CT of the head call to speak to the provider or the nocturnes. Was able to give her the number to contact him. Requested to the tech to please call the ICU if she was not able to contact the provider. All due meds given with no a/r. No s/s of acute distress. Patient still resting in bed and unable to respond to command. No s/s of distress or pain noted at this time. Tolerating the feeding well. Good oral care provided Q2hrs and PRN Call light with in reach at all times. Kept clean dry and comfortable Complete endorsement would be given to AM nurse
[2021-08-19] MEDS: NORMAL SALINE 5 ML DISP.SYRIN IVF SCH ×3 (06:00→22:00)
[2021-08-19 06:56] LABS: BASOPHILS # (AUTO) 0.1 K/uL (0.0-0.2); BASOPHILS % (AUTO) 1.1 % (0.0-2.0); EOSINOPHILS # (AUTO) 0.5 K/uL (0.0-0.4); EOSINOPHILS % (AUTO) 8.1 % (0.0-4.0); HEMATOCRIT 28.1 % (36-54); LYMPHOCYTES # (AUTO) 0.8 K/uL (1.0-5.5); LYMPHOCYTES % (AUTO) 14.3 % (20.5-51.5); MEAN CORPUSCULAR HEMOGLOBIN 29 pg (27-31); MEAN CORPUSCULAR HGB CONC 32 % (32-36); MEAN CORPUSCULAR VOLUME 91 fL (79.0-98.0); MONOCYTES # (AUTO) 0.8 K/uL (0.0-1.0); MONOCYTES % (AUTO) 14.6 % (1.7-9.3); NEUTROPHILS # (AUTO) 3.6 K/uL (1.8-7.7); NEUTROPHILS % (AUTO) 61.9 % (40.0-70.0); PLATELET COUNT (AUTO) 282 K/uL (130-430); RED CELL DISTRIBUTION WIDTH 19.2 % (9.0-15.0); WHITE BLOOD COUNT (AUTO) 5.8 K/uL (4.8-10.8)
[2021-08-19] MEDS: ACETYLCYSTEINE 10% 4 ML VIAL (RT) INH SCH (07:25)
[2021-08-19] MEDS: ALBUTEROL SULFATE 0.083% 2.5 MG/3 ML VIAL.NEB INH SCH ×4 (07:25→20:44)
--- NOTE | 2021-08-19 07:30 | NUR ---
RECEIVED PT FROM RAYMUNDO CROCKETT, ASSUMED ALL CARE.
[2021-08-19 07:34] LABS: ALANINE AMINOTRANSFERASE 16 U/L (12-78); ALBUMIN 1.9 g/dL (3.4-4.8); ASPARTATE AMINOTRANSFERASE 19 U/L (10-37); CALCIUM 10.1 mg/dL (8.4-11.0); CHLORIDE 104 mmol/L (98-107); CREATININE 0.83 mg/dL (0.55-1.30); GLUCOSE 84 mg/dL (70-99); POTASSIUM 3.3 mmol/L (3.5-5.1); SODIUM SERUM 140 mmol/L (136-145); TOTAL BILIRUBIN 0.2 mg/dL (0.0-1.0); UREA NITROGEN, BLOOD 26 mg/dL (8-21)
[2021-08-19] MEDS: PANTOPRAZOLE SODIUM 40 MG/VIAL (PROTONIX) IVP SCH (10:04)
[2021-08-19] MEDS: LACTOBACILLUS RHAMNOSUS GG 1 CAP CAPSULE GT SCH (10:04)
[2021-08-19] MEDS: FUROSEMIDE 20 MG/2 ML VIAL IVP SCH ×2 (10:05→22:06)
[2021-08-19] MEDS: DOXAZOSIN MESYLATE 2 MG TABLET GT SCH (10:06)
[2021-08-19] MEDS: FINASTERIDE 5 MG TABLET (PROSCAR) GT SCH (10:06)
[2021-08-19] MEDS: levETIRAcetam 500 MG in NS 100 ML IV SCH ×2 (10:07→22:05)
[2021-08-19] MEDS: CYANOCOBALAMIN 1000 mCg TABLET GT SCH (10:07)
[2021-08-19] MEDS: ENOXAPARIN SODIUM 80 MG/0.8 ML SYRINGE SUBCUT SCH ×2 (10:08→10:58)
[2021-08-19] MEDS: AMIODARONE HCL 200 MG TABLET NG SCH (10:11)
[2021-08-19] MEDS: BALSAM PERU/CASTOR OIL 56.7 GM OINT...G. TP SCH (10:12)
[2021-08-19 10:16] LABS: ANION GAP 8 (5-15)
[2021-08-19] MEDS: CITALOPRAM HYDROBROMIDE 20 MG TABLET GT SCH (10:16)
--- NOTE | 2021-08-19 11:55 | NUR ---
1155 PT PLACED ON CPAP 5 PS 10. SAT 99% HR 70 RR19. PT TOLERATING WELL. WILL MONITOR.RN AWARE. Addendum: 08/19/21 at 1724 by Dena Pierre RT Amended: Links added.
--- NOTE | 2021-08-19 14:56 | NUR ---
RECEIVED ORDER FROM DR. ALAMO POTASSIUM 40MEQ IVPB X1 NOW. ORDER CARRIED OUT.
[2021-08-19] MEDS ORDERED: KCL 40mEq in D5/0.45NS 1000 mL 1,000 ML IV SCH (15:30)
[2021-08-19] MEDS ORDERED: KCL 40 mEq in 100 mL (PREMIX) 100 ML IV ONE (16:30)
--- NOTE | 2021-08-19 17:50 | NUR ---
1744 pt placed back to ac. sat 98% rn aware. Addendum: 08/19/21 at 1751 by Dena Pierre RT Amended: Links added.
[2021-08-19] MEDS: GABAPENTIN 300 MG CAPSULE GT SCH (19:21)
--- NOTE | 2021-08-19 19:31 | NUR ---
ENDORSED ALL CARE TO RAYMUNDO CROCKETT. ALL QUESTIONS AND CONCERNS ADDRESSED.
[2021-08-20] VITALS (24 sets, daily range): BP systolic 101–148
[2021-08-20] MEDS: NORMAL SALINE 5 ML DISP.SYRIN IVF SCH ×3 (06:00→22:22)
[2021-08-20 06:22] LABS: HEMATOCRIT 23.9 % (36-54); HEMOGLOBIN 7.9 g/dL (14.0-18.0); MEAN CORPUSCULAR HEMOGLOBIN 30 pg (27-31); MEAN CORPUSCULAR HGB CONC 33 % (32-36); PLATELET COUNT (AUTO) 341 K/uL (130-430); RED BLOOD CELL COUNT(AUTO) 2.68 MIL/uL (4.2-6.2); RED CELL DISTRIBUTION WIDTH 18.6 % (9.0-15.0); WHITE BLOOD COUNT (AUTO) 4.5 K/uL (4.8-10.8)
[2021-08-20 06:32] LABS: ALANINE AMINOTRANSFERASE 8 U/L (12-78); ALBUMIN 1.9 g/dL (3.4-4.8); ANION GAP 8 (5-15); ASPARTATE AMINOTRANSFERASE 14 U/L (10-37); CALCIUM 10.1 mg/dL (8.4-11.0); CHLORIDE 104 mmol/L (98-107); CREATININE 0.71 mg/dL (0.55-1.30); GLUCOSE 96 mg/dL (70-99); POTASSIUM 3.6 mmol/L (3.5-5.1); SODIUM SERUM 140 mmol/L (136-145); TOTAL BILIRUBIN 0.2 mg/dL (0.0-1.0); UREA NITROGEN, BLOOD 30 mg/dL (8-21)
--- NOTE | 2021-08-20 07:00 | NUR ---
Recv report fr Romy honeycutt, patient is in bed , sleeping easy to arouse, patient is orally intubated, vent settings are ac 12, tv 500, fio2 30% m peep +5, tube feeding infusing at 40 ml/hr, abdomen is obese with active bs, f/c to gravity, skin is pale, i will continue nursing care and interventions.
[2021-08-20] MEDS: ALBUTEROL SULFATE 0.083% 2.5 MG/3 ML VIAL.NEB INH SCH ×4 (07:18→19:46)
[2021-08-20] MEDS: ACETYLCYSTEINE 10% 4 ML VIAL (RT) INH SCH (07:18)
[2021-08-20 08:10] LABS: MEAN CORPUSCULAR VOLUME 89 fL (79.0-98.0)
[2021-08-20] MEDS: LACTOBACILLUS RHAMNOSUS GG 1 CAP CAPSULE GT SCH (08:45)
[2021-08-20] MEDS: PANTOPRAZOLE SODIUM 40 MG/VIAL (PROTONIX) IVP SCH (08:45)
[2021-08-20] MEDS: FUROSEMIDE 20 MG/2 ML VIAL IVP SCH (08:46)
[2021-08-20] MEDS: AMIODARONE HCL 200 MG TABLET NG SCH (08:47)
[2021-08-20] MEDS: CYANOCOBALAMIN 1000 mCg TABLET GT SCH (08:49)
[2021-08-20] MEDS: BALSAM PERU/CASTOR OIL 56.7 GM OINT...G. TP SCH (08:50)
[2021-08-20] MEDS: levETIRAcetam 500 MG in NS 100 ML IV SCH ×2 (08:51→22:19)
[2021-08-20] MEDS: CITALOPRAM HYDROBROMIDE 20 MG TABLET GT SCH (08:54)
[2021-08-20] MEDS: DOXAZOSIN MESYLATE 2 MG TABLET GT SCH (09:00)
[2021-08-20] MEDS: FINASTERIDE 5 MG TABLET (PROSCAR) GT SCH (09:00)
--- NOTE | 2021-08-20 10:00 | NUR ---
Turned and repositioned the patient, maintained optimum comfort, given all am medications, lee is at the bedside, i will continue to monitor the patient.
--- NOTE | 2021-08-20 11:48 | NUR ---
RT NOTES will endorse care to oncoming RT
--- NOTE | 2021-08-20 12:00 | NUR ---
Patient is in bed no changed in condition, blood pressure stable, vent settings minimal, i will continue to monitor the patient.
[2021-08-20 12:01] LABS: ATYPICAL LYMPHOCYTES % 0 % (0-0); BAND % (MANUAL) 4 % (0-6); BASOPHILS % (MANUAL) 0 % (0-2); EOSINOPHILS % (MANUAL) 12 % (0-7); LYMPHOCYTES % (MANUAL) 16 % (20-46); MONOCYTES % (MANUAL) 10 % (0-11)
[2021-08-20] MEDS: GABAPENTIN 300 MG CAPSULE GT SCH (17:38)
--- NOTE | 2021-08-20 20:00 | NUR ---
Receive full bedside report from AM RN patient the patient is a 76 male with an Dx of sepsis and hypoxia. The patient is vent with vent settings of A/c 16, AV of 500, FiO2 30% Peep of 5. He is unable to make his need known. Patient with a R upper arm PICC line 2L. Patient is pace with HR in the low 100 at this time. Notice patient with both upper and lower extremities edema. With sacral coccyx wound. Feeding tube in place, feeding running at 45cc/ hr and it is the goal at this time. Patient is still on contact isolation for MRSA and ECOLI. HOB elevated to prevent aspiration, side rails up X2 and bed brakes in an on position. Patient is not alert and only response to pain stimuli. Feeding tube placement confirmed and residual noted less than 10cc. Abdomen soft and non distended, bowel sound present in all 4Q. All need anticipated. Kept clean dry and comfortable. Call light with in reach at all times Good oral care provided Q2hrs and PRN. Was able to provide a full bed bath and patient tolerated well. All needs anticipated. Patient is still on Keppra no s/s of seizures noted at this time. No blood thinners given during me shift. Still following all contact isolation precaution per facility protocol. Turned and reposition Q2hrs and prn. No s/s of bleeding noted or acute distress. No change LOC noted during my shift. All due meds given as order with no a/r noted at this time. Kept clean dry and comfortable and all need anticipated HOB elevated, turned and reposition Q2 hrs and PRN. No s/s of acute distress. Patient still resting in bed and unable to respond to command. No s/s of distress or pain noted at this time. Tolerating the feeding well. No fever, no n/v noted during shift. Good oral care provided Q2hrs and PRN Call light with in reach at all times. Kept clean dry and comfortable Complete endorsement would be given to AM nurse, endorse to the AM nurse that he family member (daughter) was to speak to the frederic provider
[2021-08-20] MEDS: FUROSEMIDE 40 MG/4 ML VIAL IVP SCH (22:25)
[2021-08-21] VITALS (26 sets, daily range): BP systolic 60–134
--- NOTE | 2021-08-21 01:40 | NUR ---
Receive full bedside report from AM RN patient the patient is a 76 male with an Dx of sepsis and hypoxia. The patient is vent with vent settings of A/c 16, AV of 500, FiO2 30% Peep of 5. He is unable to make his need known. Patient with a R upper arm PICC line 2L. Patient is pace with HR in the low 100 at this time. Notice patient with both upper and lower extremities edema. With sacral coccyx wound. Feeding tube in place, feeding running at 45cc/ hr and it is the goal at this time. Patient is still on contact isolation for MRSA and ECOLI. HOB elevated to prevent aspiration, side rails up X2 and bed brakes in an on position. Patient is not alert and only response to pain stimuli. Feeding tube placement confirmed and residual noted less than 10cc. Abdomen soft and non distended, bowel sound present in all 4Q. All need anticipated. Kept clean dry and comfortable. Call light with in reach at all times. Most of the initial assessment still remain the same at this time. Patient is in his room listen to the therapeutic music that family member provided. Safety and comfort measures in place at all times. Kept clean dry and comfortable turned and reposition as need and Q2hrs. Call light with in reach at all times. Good oral care provided Q2hrs and PRN. Was able to provide a partial bed bath and patient tolerated well. All needs anticipated. Patient is still on Keppra no s/s of seizures noted at this time. No blood thinners given during me shift. No s/s of acute distress noted at this time. No s/s of respiratory distress noted. Still following all contact isolation precaution per facility protocol. Family member wanted to ask about the provider and neuro not reach back to her. I informed her that she can contact patient relations so that they can help facilitated the process. Was able to informed her that the morning nurse also knows to notify the provider and neuro that she was to speak to them. Daughter wanted to know why her dad was on Keppra and she was not informed. I was able to show her that he has been under my care for the last 3 nights and he has been on Keppra and that he has not had any seizures activity during my shift and the medication could be to prevent any seizures Turned and reposition Q2hrs and prn. No s/s of bleeding noted or acute distress. No change LOC noted during my shift. All due meds given as order with no a/r noted at this time. Kept clean dry and comfortable and all need anticipated HOB elevated, turned and reposition Q2 hrs and PRN. No s/s of acute distress. Patient still resting in bed and unable to respond to command. No s/s of distress or pain noted at this time. Tolerating the feeding well. No fever, no n/v noted during shift. Good oral care provided Q2hrs and PRN Call light with in reach at all times. Kept clean dry and comfortable Would give a complete bed side endorsement to AM nurse. Also, would endorse to the AM nurse that he family member (daughter) still want to speak to the neuro and primary provide
[2021-08-21] MEDS: ALBUTEROL SULFATE 0.083% 2.5 MG/3 ML VIAL.NEB INH SCH ×3 (07:23→15:57)
[2021-08-21] MEDS: ACETYLCYSTEINE 10% 4 ML VIAL (RT) INH SCH (07:24)
[2021-08-21] MEDS: PANTOPRAZOLE SODIUM 40 MG/VIAL (PROTONIX) IVP SCH (09:22)
[2021-08-21] MEDS: CYANOCOBALAMIN 1000 mCg TABLET GT SCH (09:22)
[2021-08-21] MEDS: CITALOPRAM HYDROBROMIDE 20 MG TABLET GT SCH (09:22)
[2021-08-21] MEDS: FINASTERIDE 5 MG TABLET (PROSCAR) GT SCH (09:22)
[2021-08-21] MEDS: FUROSEMIDE 40 MG/4 ML VIAL IVP SCH ×2 (09:22→21:00)
[2021-08-21] MEDS: AMIODARONE HCL 200 MG TABLET NG SCH (09:24)
[2021-08-21] MEDS: LACTOBACILLUS RHAMNOSUS GG 1 CAP CAPSULE GT SCH (09:24)
[2021-08-21] MEDS: BALSAM PERU/CASTOR OIL 56.7 GM OINT...G. TP SCH (09:25)
[2021-08-21] MEDS: DOXAZOSIN MESYLATE 2 MG TABLET GT SCH (09:25)
[2021-08-21] MEDS: levETIRAcetam 500 MG in NS 100 ML IV SCH ×2 (09:26→22:39)
--- NOTE | 2021-08-21 09:30 | NUR ---
RT NOTES Cpap trial was attempted, no respiratory effort was noted despite verbal and tactile stimulations. RN at bedside
[2021-08-21 13:14] LABS: BASOPHILS % (AUTO) 0.8 % (0.0-2.0); EOSINOPHILS # (AUTO) 0.2 K/uL (0.0-0.4); HEMATOCRIT 25.9 % (36-54); HEMOGLOBIN 8.2 g/dL (14.0-18.0); LYMPHOCYTES # (AUTO) 0.5 K/uL (1.0-5.5); LYMPHOCYTES % (AUTO) 8.2 % (20.5-51.5); MEAN CORPUSCULAR HEMOGLOBIN 28 pg (27-31); MEAN CORPUSCULAR HGB CONC 32 % (32-36); MEAN CORPUSCULAR VOLUME 89 fL (79.0-98.0); MONOCYTES # (AUTO) 0.4 K/uL (0.0-1.0); MONOCYTES % (AUTO) 6.4 % (1.7-9.3); NEUTROPHILS % (AUTO) 81.6 % (40.0-70.0); PLATELET COUNT (AUTO) 328 K/uL (130-430); RED BLOOD CELL COUNT(AUTO) 2.92 MIL/uL (4.2-6.2); RED CELL DISTRIBUTION WIDTH 18.8 % (9.0-15.0); WHITE BLOOD COUNT (AUTO) 6.1 K/uL (4.8-10.8)
[2021-08-21 13:28] LABS: ANION GAP 8 (5-15); CALCIUM 10.1 mg/dL (8.4-11.0); CHLORIDE 104 mmol/L (98-107); CREATININE 0.78 mg/dL (0.55-1.30); GLUCOSE 100 mg/dL (70-99); POTASSIUM 3.1 mmol/L (3.5-5.1); SODIUM SERUM 141 mmol/L (136-145); UREA NITROGEN, BLOOD 29 mg/dL (8-21)
[2021-08-21] MEDS: NORMAL SALINE 5 ML DISP.SYRIN IVF SCH ×2 (14:00→22:41)
[2021-08-21] MEDS ORDERED: KCL 40 mEq in 100 mL (PREMIX) 100 ML IV ONE (15:00)
--- NOTE | 2021-08-21 15:55 | NUR ---
RT NOTES Found vent on CPaP 5 PS 10, changed by Dr Mendes during rounding around 1400. No distress noted. will monitor pt.
[2021-08-21] MEDS: GABAPENTIN 300 MG CAPSULE GT SCH (18:03)
--- NOTE | 2021-08-21 18:47 | NUR ---
PT CONDITION REMAINS STABLE THROUGHOUT THIS SHIFT WITHOUT INCIDENT IS ON A NONREBREATHER AT 28% KATIE WELL COMFORT AND SAFETY MAINTAINED Addendum: 08/21/21 at 1850 by [facility] director clinical research WRONG PT
--- NOTE | 2021-08-21 18:50 | NUR ---
PT CONDITION REMAINS STABLE IS ON BIPAP KATIE WELL WAS GIVEN K RIDER X1 40MEQ FOR LOW K LEVEL
--- NOTE | 2021-08-21 19:20 | NUR ---
The patient is a 76 male with an Dx of sepsis and hypoxia. The patient is vent with vent settings of Spont 16, AV of 480, FiO2 30% Peep of 5. Received the patient off the vent and tolerating well saturating at she is unable to make her need known. Patient with a R upper arm PICC line 2L. Patient is pace with HR in the low 100 at this time. Notice patient with both upper and lower extremities edema. With sacral coccyx wound. Feeding tube in place, feeding running at 45cc/ hr and it is the goal at this time. Patient is still on contact isolation for MRSA and ECOLI. HOB elevated to prevent aspiration, side rails up X2 and bed brakes in an on position. Patient is not alert and only response to pain stimuli. Feeding tube placement confirmed and residual noted less than 5cc. Abdomen soft and non distended, bowel sound present in all 4Q. All need anticipated. Kept clean dry and comfortable. Call light with in reach at all times. Most of the initial assessment still remain the same at this time. Patient is in his room listen to the therapeutic music that family member provided. Patient is still on Keppra no s/s of seizures noted at this time. No blood thinners given during me shift. No s/s of acute distress noted at this time. No s/s of respiratory distress noted. Still following all contact isolation precaution per facility protocol. Kept clean dry and comfortable turned and reposition as need and Q2hrs. Call light with in reach at all times. Good oral care provided Q2hrs and PRN. Was able to provide a partial bed bath and patient tolerated well. All needs anticipated. Safety and comfort measures in place at all times Good oral care provided Q2hrs and PRN. Was able to provide a partial bed bath and patient tolerated well. All needs anticipated. Still following all contact isolation precaution per facility protocol. Turned and reposition Q2hrs and prn. No s/s of bleeding noted or acute distress. No change LOC noted during my shift. All due meds given as order with no a/r noted at this time. Kept clean dry and comfortable and all need anticipated HOB elevated, turned and reposition Q2 hrs and PRN. No s/s of acute distress. Patient still resting in bed and unable to respond to command. No s/s of distress or pain noted at this time. Tolerating the feeding well. No fever, no n/v noted during shift. Good oral care provided Q2hrs and PRN Call light with in reach at all times. Kept clean dry and comfortable Patient was but back on the vent with a setting of VT 500, FiO2 30%, PEEP 5. Would give a complete bed side endorsement to AM nurse. Call light with in reach at all times
[2021-08-22] VITALS (28 sets, daily range): BP systolic 12–176
[2021-08-22] MEDS: ALBUTEROL SULFATE 0.083% 2.5 MG/3 ML VIAL.NEB INH SCH ×4 (07:14→19:00)
[2021-08-22] MEDS: ACETYLCYSTEINE 10% 4 ML VIAL (RT) INH SCH (07:15)
[2021-08-22] MEDS: NORMAL SALINE 5 ML DISP.SYRIN IVF SCH ×3 (07:26→20:31)
--- NOTE | 2021-08-22 08:15 | NUR ---
RT NOTES CPAP was attempted, no spontaneous breaths noted, despite verbal and tactile stimulation. Will try again later.
[2021-08-22] MEDS: CYANOCOBALAMIN 1000 mCg TABLET GT SCH (09:38)
[2021-08-22] MEDS: AMIODARONE HCL 200 MG TABLET NG SCH (09:38)
[2021-08-22] MEDS: CITALOPRAM HYDROBROMIDE 20 MG TABLET GT SCH (09:39)
[2021-08-22] MEDS: DOXAZOSIN MESYLATE 2 MG TABLET GT SCH (09:39)
[2021-08-22] MEDS: FUROSEMIDE 40 MG/4 ML VIAL IVP SCH ×2 (09:40→20:31)
[2021-08-22] MEDS: LACTOBACILLUS RHAMNOSUS GG 1 CAP CAPSULE GT SCH (09:40)
[2021-08-22] MEDS: POTASSIUM CHLORIDE 20 MEQ TAB.PRT.SR PO SCH (09:41)
[2021-08-22] MEDS: BALSAM PERU/CASTOR OIL 56.7 GM OINT...G. TP SCH (09:41)
[2021-08-22] MEDS: PANTOPRAZOLE SODIUM 40 MG/VIAL (PROTONIX) IVP SCH (09:41)
[2021-08-22] MEDS: FINASTERIDE 5 MG TABLET (PROSCAR) GT SCH (09:42)
[2021-08-22] MEDS: levETIRAcetam 500 MG in NS 100 ML IV SCH ×2 (09:43→20:31)
--- NOTE | 2021-08-22 16:27 | NUR ---
RT NOTES Vent to cpap 5 ps 10 per daily trial. Will cont.. to monitor pt. Rn aware.
[2021-08-22] MEDS: GABAPENTIN 300 MG CAPSULE GT SCH (18:41)
--- NOTE | 2021-08-22 19:35 | NUR ---
PM SHIFT ASSESSMENT Patient is awake and able to follow some simple commands. Patient is on the vent, SPO2 above 92%. SR on monitor. Skin warm and dry. Tubefeeding infusing to Gtube, tolerating feedings. Powell catheter in place, draining to gravity. Safety precautions in place, call light within reach. Will continue to monitor.
[2021-08-23] VITALS (28 sets, daily range): BP systolic 94–139
--- NOTE | 2021-08-23 00:54 | NUR ---
PT WAS PUT BACK ON VC @ 2340 DUE TO PERSISTENT SMALL VT AND INCREASED WOB.
[2021-08-23] MEDS: NORMAL SALINE 5 ML DISP.SYRIN IVF SCH ×3 (06:42→21:12)
[2021-08-23 06:44] LABS: BASOPHILS # (AUTO) 0.1 K/uL (0.0-0.2); BASOPHILS % (AUTO) 1.8 % (0.0-2.0); EOSINOPHILS # (AUTO) 0.5 K/uL (0.0-0.4); EOSINOPHILS % (AUTO) 9.7 % (0.0-4.0); HEMOGLOBIN 8.1 g/dL (14.0-18.0); LYMPHOCYTES # (AUTO) 0.7 K/uL (1.0-5.5); LYMPHOCYTES % (AUTO) 15.2 % (20.5-51.5); MEAN CORPUSCULAR HEMOGLOBIN 29 pg (27-31); MEAN CORPUSCULAR HGB CONC 32 % (32-36); MEAN CORPUSCULAR VOLUME 88 fL (79.0-98.0); MONOCYTES # (AUTO) 0.5 K/uL (0.0-1.0); MONOCYTES % (AUTO) 9.6 % (1.7-9.3); NEUTROPHILS # (AUTO) 3.1 K/uL (1.8-7.7); NEUTROPHILS % (AUTO) 63.7 % (40.0-70.0); PLATELET COUNT (AUTO) 334 K/uL (130-430); RED BLOOD CELL COUNT(AUTO) 2.84 MIL/uL (4.2-6.2); RED CELL DISTRIBUTION WIDTH 19.3 % (9.0-15.0); WHITE BLOOD COUNT (AUTO) 4.9 K/uL (4.8-10.8)
[2021-08-23 07:15] LABS: ALANINE AMINOTRANSFERASE 10 U/L (12-78); ANION GAP 9 (5-15); ASPARTATE AMINOTRANSFERASE 17 U/L (10-37); CALCIUM 10.2 mg/dL (8.4-11.0); CHLORIDE 105 mmol/L (98-107); CREATININE 0.77 mg/dL (0.55-1.30); GLUCOSE 87 mg/dL (70-99); POTASSIUM 3.5 mmol/L (3.5-5.1); SODIUM SERUM 145 mmol/L (136-145); TOTAL BILIRUBIN 0.3 mg/dL (0.0-1.0); UREA NITROGEN, BLOOD 29 mg/dL (8-21)
[2021-08-23] MEDS: ALBUTEROL SULFATE 0.083% 2.5 MG/3 ML VIAL.NEB INH SCH ×2 (07:20→20:09)
[2021-08-23] MEDS: ACETYLCYSTEINE 10% 4 ML VIAL (RT) INH SCH (07:21)
--- NOTE | 2021-08-23 07:25 | NUR ---
ENDORSEMENT Patient care endorsed to marvin FONSECA.
[2021-08-23] MEDS: DOXAZOSIN MESYLATE 2 MG TABLET GT SCH (08:11)
[2021-08-23] MEDS: POTASSIUM CHLORIDE 20 MEQ TAB.PRT.SR PO SCH (08:11)
[2021-08-23] MEDS: LACTOBACILLUS RHAMNOSUS GG 1 CAP CAPSULE GT SCH (08:13)
[2021-08-23] MEDS: CITALOPRAM HYDROBROMIDE 20 MG TABLET GT SCH (08:13)
[2021-08-23] MEDS: FINASTERIDE 5 MG TABLET (PROSCAR) GT SCH (08:14)
[2021-08-23] MEDS: AMIODARONE HCL 200 MG TABLET NG SCH (08:14)
[2021-08-23] MEDS: CYANOCOBALAMIN 1000 mCg TABLET GT SCH (08:14)
[2021-08-23] MEDS: FUROSEMIDE 40 MG/4 ML VIAL IVP SCH ×2 (08:15→21:12)
[2021-08-23] MEDS: BALSAM PERU/CASTOR OIL 56.7 GM OINT...G. TP SCH (08:15)
[2021-08-23] MEDS: PANTOPRAZOLE SODIUM 40 MG/VIAL (PROTONIX) IVP SCH (08:15)
[2021-08-23] MEDS: levETIRAcetam 500 MG in NS 100 ML IV SCH ×2 (08:16→21:12)
--- NOTE | 2021-08-23 12:19 | NUR ---
Nutrition F/U RD reviewed pt's current EMR record including diet Hx, physician notes, nursing notes, pertinent labs/meds/procedures, care trends, and care activity. Admitting Diagnosis: Hypoxia Medical History Comment: PMH: CAD, CVA, CHF, atrial fibrillation, BPH. SARS-CoV-2 Ag (Rapid) Negative (07/26) Pt is also admitted w/ sepsis, UTI, pneumonia, acute respiratory failure, leukocytosis, hyponatremia, CHARLY, hyperglycemia, lactic acid, transaminitis, hypoalbuminemia, protein calorie malnutrition, CHF, benign prostatic hypertrophy, dysphagia, s/p PEG. 08/23/21 MD notes: Cardiac arrest Subjective Information: RD bedside visit was deferred. Pt was seen through glass door/window in ICU, EN observed to be infusing as ordered at 45ml. Per EMR review, pt remains sedated and intubated and CIPAP trials. Family to decide on aggressiveness of care. BM 08/22 x1, Omar scale: 12, pt was seen by vaccine specialist on 08/05: 1. Bilateral Buttocks: Area of erythema with MASD from IAD around superior aspect of perimeter of anus, which have converted to several stage 2 pressure ulcers with pink tissue and one stage 3 pressure ulcer with yellow tissue, present on admission. Non-pitting edema to bilateral arm and 4+ edema to BLE per coat room attendant. EN rate: 45ml (08/22); GRV: 0ml. EN regimen remains adequate and appropriate. Current Diet Order/Nutrition Support: Vital AF 1.2 at 45 ml/hr, Alfonzo BID, Free Water Flush: 150 ml Q6h via GT x11 days Pertinent Medications: Lasix, VIT B12, lovenox, culturelle, VIT B12, zofran, dulcolax, colace, k-dur, protonix Pertinent Labs: 08/23 Na: 145 WNL , K 3.5 WNL, BG 87WNL, BUN: 29H, Cre 0.77 WNL. Height (Feet) 6 feet Height (Inches) 1.00 inches Weight (Pounds) 178 pounds -- stable since 07/28 Weight (Calculated Kilograms) 80.300681 kilograms Patient Weight 80.739 kg Body Mass Index 23.48 kg/m2 Estimated Energy Expenditure (kcals/day) 1438 kcal (PSU 2002b d/t critical illness, intubated) Estimated Protein Required (g/day) 97-121 (1.2-1.5 gm/kg CBW d/t acute state, wound healing) Estimated Fluid Required (l/day) 1.7 (1 ml/kcal/day for maintenance) Problem/Etiology/Signs/Symptoms Increased nutritional needs R/T metabolic demands AEB estimated nutritional requirements for acute state. *ongoing Expected Outcomes/Goals - Monitor TF tolerance & intakes w/ goal of pt meeting >80% of estimated nutritional needs, labs trending WNL, normal GI function, and skin integrity/wt maintenance. Dietitian Recommendations * Continue Vital AF 1.2 at 45 ml/hr, Alfonzo BID, Free Water Flush: 150 ml Q6h via GT Provides: 1456 kcal/day, 86 gm protein/day, and 1476 ml free water/day Meets: 101% of estimated calorie needs and 89% of lower end of estimated protein needs. Follow Up High Risk: F/U in 2-3 days
[2021-08-23] MEDS: GABAPENTIN 300 MG CAPSULE GT SCH (18:21)
--- NOTE | 2021-08-23 19:03 | NUR ---
report given to incoming nurse all questions answered pt condition remains stable
[2021-08-24] VITALS (25 sets, daily range): BP systolic 89–141
[2021-08-24] MEDS: NORMAL SALINE 5 ML DISP.SYRIN IVF SCH ×3 (05:53→21:08)
[2021-08-24 05:56] LABS: BASOPHILS # (AUTO) 0.1 K/uL (0.0-0.2); BASOPHILS % (AUTO) 2.4 % (0.0-2.0); EOSINOPHILS # (AUTO) 0.4 K/uL (0.0-0.4); EOSINOPHILS % (AUTO) 8.6 % (0.0-4.0); HEMATOCRIT 24.6 % (36-54); HEMOGLOBIN 7.9 g/dL (14.0-18.0); LYMPHOCYTES # (AUTO) 0.7 K/uL (1.0-5.5); LYMPHOCYTES % (AUTO) 16.5 % (20.5-51.5); MEAN CORPUSCULAR HEMOGLOBIN 28 pg (27-31); MEAN CORPUSCULAR HGB CONC 32 % (32-36); MEAN CORPUSCULAR VOLUME 88 fL (79.0-98.0); MONOCYTES # (AUTO) 0.4 K/uL (0.0-1.0); NEUTROPHILS # (AUTO) 2.8 K/uL (1.8-7.7); NEUTROPHILS % (AUTO) 63.5 % (40.0-70.0); PLATELET COUNT (AUTO) 348 K/uL (130-430); RED CELL DISTRIBUTION WIDTH 18.6 % (9.0-15.0); WHITE BLOOD COUNT (AUTO) 4.5 K/uL (4.8-10.8)
[2021-08-24 07:04] LABS: ALANINE AMINOTRANSFERASE 9 U/L (12-78); ANION GAP 7 (5-15); ASPARTATE AMINOTRANSFERASE 19 U/L (10-37); CALCIUM 10.1 mg/dL (8.4-11.0); CHLORIDE 105 mmol/L (98-107); CREATININE 0.84 mg/dL (0.55-1.30); GLUCOSE 79 mg/dL (70-99); POTASSIUM 3.5 mmol/L (3.5-5.1); SODIUM SERUM 143 mmol/L (136-145); TOTAL BILIRUBIN 0.2 mg/dL (0.0-1.0); UREA NITROGEN, BLOOD 28 mg/dL (8-21)
--- NOTE | 2021-08-24 07:15 | NUR ---
ENDORSEMENT Patient care endorsed to marvin FONSECA.
[2021-08-24] MEDS: ALBUTEROL SULFATE 0.083% 2.5 MG/3 ML VIAL.NEB INH SCH ×4 (07:26→20:52)
[2021-08-24] MEDS: ACETYLCYSTEINE 10% 4 ML VIAL (RT) INH SCH (07:26)
[2021-08-24] MEDS: levETIRAcetam 500 MG in NS 100 ML IV SCH ×2 (08:08→21:07)
[2021-08-24] MEDS: PANTOPRAZOLE SODIUM 40 MG/VIAL (PROTONIX) IVP SCH (08:08)
[2021-08-24] MEDS: FUROSEMIDE 40 MG/4 ML VIAL IVP SCH ×2 (08:14→21:08)
[2021-08-24] MEDS: AMIODARONE HCL 200 MG TABLET NG SCH (08:14)
[2021-08-24] MEDS: LACTOBACILLUS RHAMNOSUS GG 1 CAP CAPSULE GT SCH (08:15)
[2021-08-24] MEDS: CITALOPRAM HYDROBROMIDE 20 MG TABLET GT SCH (08:15)
[2021-08-24] MEDS: POTASSIUM CHLORIDE 20 MEQ TAB.PRT.SR PO SCH (08:15)
[2021-08-24] MEDS: BALSAM PERU/CASTOR OIL 56.7 GM OINT...G. TP SCH (08:16)
[2021-08-24] MEDS: DOXAZOSIN MESYLATE 2 MG TABLET GT SCH (08:16)
[2021-08-24] MEDS: FINASTERIDE 5 MG TABLET (PROSCAR) GT SCH (08:16)
[2021-08-24] MEDS: CYANOCOBALAMIN 1000 mCg TABLET GT SCH (08:16)
--- NOTE | 2021-08-24 12:25 | NUR ---
dr mccloud in to see pt was told pt's daughter wants the attending physicians on the case of her father to call her. dr mccloud stated he called at 1215 but no answered. this typewriter mechanic called and a man answered stating he was a friend of the pt's daughter whom name is alma but she wasn't there and he was just a backup call in case something happens to the patient and that the daughter has no real number to be reach
--- NOTE | 2021-08-24 16:40 | NUR ---
1550 PT PLACED BACK TO AC. Addendum: 08/24/21 at 1640 by Dena Pierre RT Amended: Links added.
[2021-08-24] MEDS: GABAPENTIN 300 MG CAPSULE GT SCH (18:36)
--- NOTE | 2021-08-24 19:15 | NUR ---
change of shift.pt.presents isolation status;contact;mrsa;sputm,nares,urine;e.coli.pt.presents ett:#7.5,lipline;26cm.ventilator:settings;tv;50,fio2%:30%,a/c;12,p;5.02 sat%=100%. pt.presents picc line location rt.bicept intact iv fluids infusing.:[email or web address] rate.pt.presents g-tube intact:feed;vital;1.2 rate;45ml/hr.pt.presents hilliard cath intact patent.call light w/in access of the pt.
--- NOTE | 2021-08-24 20:00 | NUR ---
pt.assessed.v/s assessed values wnl.ett intact.i have attended to the oral/ett care/suction.02-sat%=100%.picc line intact iv fluids infusing.g-tube intact g-tube feed infusing.hilliard cath intact patent urine content present.per flacc pain mgx pt.absent facial grim aces/body posturing.pt.assessed for cleanliness.pt.repositioned.call light place w/in access of the pt.
--- NOTE | 2021-08-24 21:00 | NUR ---
2100p medications administered.i have administered lasix:40mg ivp.to assess urine output;volume,pt's weight per protocol.02-sat%=100%.per flacc pain mgx pt.absent facial grimaces/body posturing.call light w/in access of the pt.
--- NOTE | 2021-08-24 22:00 | NUR ---
pt.assessed.v/s assessed values wnl.trach intact.i have attended to the oral/trach care/suction.02-mon%=100%.picc line intact iv fluids infusing.g-tube intact g-tube feed infusing.hilliard cath intact;patent urine content present.per flacc pain mgx pt.absent facial grimaces/body posturing.pt.assessed for cleanliness.pt.repositioned.call light placed w/in access of the pt.
[2021-08-25] VITALS (30 sets, daily range): BP systolic 100–141
--- NOTE | 2021-08-25 | NUR ---
pt.assessed.v/s assessed values wnl.trach intact i have attended to the oral/trach care/suction.02-sat%=98%.picc line intact iv fluids infusing.g-tube intact g-tube feed infusing.hilliard cath intact patent urine content present.per flacc pain mgx pt.absent facial grimaces/body posturing.pt.assessed for cleanliness pt.repositioned.call light placed w/in access of the pt.
--- NOTE | 2021-08-25 02:00 | NUR ---
pt.assessed.v/s assessed values wnl.ett intact i have attended to the oral/ett care/suction.02-sat%=100%.picc line intact iv fluids infusing.g-tube intact g-tube feed infusing.hilliard cath intact;patent urine content present.per flacc pain mgx pt. absent facial grimaces/body posturing.pt.assessed for cleanliness.pt.repositioned.call light placed w/in access of the pt.
--- NOTE | 2021-08-25 04:00 | NUR ---
pt.assessed.v/s assessed values wnl.ett intact.i have attended to the oral/ett care/suction.02-sat%=100%.picc line intact iv fluids infusing.g-tube intact g-tube feed infusing.hilliard cath intact;patent urine content present.per flacc pain mgx pt.absent facial grimaces/body posturing.pt.assessed for cleanliness.pt.repositioned.call light placed w/in access of the pt.
[2021-08-25] MEDS: NORMAL SALINE 5 ML DISP.SYRIN IVF SCH ×3 (05:19→20:44)
[2021-08-25 07:13] LABS: BASOPHILS # (AUTO) 0.1 K/uL (0.0-0.2); BASOPHILS % (AUTO) 1.5 % (0.0-2.0); EOSINOPHILS # (AUTO) 0.5 K/uL (0.0-0.4); EOSINOPHILS % (AUTO) 8.6 % (0.0-4.0); HEMOGLOBIN 8.2 g/dL (14.0-18.0); LYMPHOCYTES # (AUTO) 0.7 K/uL (1.0-5.5); LYMPHOCYTES % (AUTO) 12.7 % (20.5-51.5); MEAN CORPUSCULAR HEMOGLOBIN 29 pg (27-31); MEAN CORPUSCULAR HGB CONC 33 % (32-36); MEAN CORPUSCULAR VOLUME 88 fL (79.0-98.0); MONOCYTES # (AUTO) 0.4 K/uL (0.0-1.0); MONOCYTES % (AUTO) 6.8 % (1.7-9.3); NEUTROPHILS # (AUTO) 3.9 K/uL (1.8-7.7); NEUTROPHILS % (AUTO) 70.4 % (40.0-70.0); PLATELET COUNT (AUTO) 359 K/uL (130-430); RED BLOOD CELL COUNT(AUTO) 2.85 MIL/uL (4.2-6.2); RED CELL DISTRIBUTION WIDTH 18.8 % (9.0-15.0); WHITE BLOOD COUNT (AUTO) 5.6 K/uL (4.8-10.8)
[2021-08-25] MEDS: ALBUTEROL SULFATE 0.083% 2.5 MG/3 ML VIAL.NEB INH SCH ×3 (07:27→15:00)
[2021-08-25] MEDS: ACETYLCYSTEINE 10% 4 ML VIAL (RT) INH SCH (07:27)
[2021-08-25 08:17] LABS: ALANINE AMINOTRANSFERASE 9 U/L (12-78); ALBUMIN 2.2 g/dL (3.4-4.8); ANION GAP 8 (5-15); ASPARTATE AMINOTRANSFERASE 15 U/L (10-37); CALCIUM 9.9 mg/dL (8.4-11.0); CHLORIDE 104 mmol/L (98-107); GLUCOSE 99 mg/dL (70-99); POTASSIUM 3.2 mmol/L (3.5-5.1); SODIUM SERUM 143 mmol/L (136-145); TOTAL BILIRUBIN 0.2 mg/dL (0.0-1.0); UREA NITROGEN, BLOOD 30 mg/dL (8-21)
--- NOTE | 2021-08-25 08:20 | NUR ---
RT NOTES Per daily CPAP trial, vent to cpap 5 ps 10. No adverse reactions noted. Will monitor pt. RN notified.
[2021-08-25] MEDS: PANTOPRAZOLE SODIUM 40 MG/VIAL (PROTONIX) IVP SCH (08:29)
[2021-08-25] MEDS: levETIRAcetam 500 MG in NS 100 ML IV SCH ×2 (08:29→20:43)
[2021-08-25] MEDS: FUROSEMIDE 40 MG/4 ML VIAL IVP SCH ×2 (08:30→20:44)
[2021-08-25] MEDS: AMIODARONE HCL 200 MG TABLET NG SCH (08:31)
[2021-08-25] MEDS: FINASTERIDE 5 MG TABLET (PROSCAR) GT SCH (08:31)
[2021-08-25] MEDS: CYANOCOBALAMIN 1000 mCg TABLET GT SCH (08:31)
[2021-08-25] MEDS: BALSAM PERU/CASTOR OIL 56.7 GM OINT...G. TP SCH (08:32)
[2021-08-25] MEDS: POTASSIUM CHLORIDE 20 MEQ TAB.PRT.SR PO SCH (08:32)
[2021-08-25] MEDS: LACTOBACILLUS RHAMNOSUS GG 1 CAP CAPSULE GT SCH (08:32)
[2021-08-25] MEDS: CITALOPRAM HYDROBROMIDE 20 MG TABLET GT SCH (08:33)
[2021-08-25] MEDS: DOXAZOSIN MESYLATE 2 MG TABLET GT SCH (08:34)
[2021-08-25] MEDS: GABAPENTIN 300 MG CAPSULE GT SCH (17:32)
--- NOTE | 2021-08-25 18:58 | NUR ---
pt remains on cpap throughout the shift natty well condition remains stable report given to incoming nurse all questions answered
[2021-08-26] VITALS (28 sets, daily range): BP systolic 107–135
[2021-08-26] MEDS: NORMAL SALINE 5 ML DISP.SYRIN IVF SCH ×3 (06:34→21:18)
--- NOTE | 2021-08-26 06:48 | NUR ---
ALL CARES DONE, VSS, AFEBRILE, TOLERATING CPAP BUT SWITCH BACK TO AC MODE AT 2100 BY RT, TOLERATING TUBE FEEDING BMX1,GOOD OUTPUT. CONT CARE.
[2021-08-26] MEDS: ACETYLCYSTEINE 10% 4 ML VIAL (RT) INH SCH (07:26)
[2021-08-26] MEDS: ALBUTEROL SULFATE 0.083% 2.5 MG/3 ML VIAL.NEB INH SCH ×3 (07:26→15:24)
--- NOTE | 2021-08-26 07:30 | NUR ---
MORNING ROUNDS: PATIENT AWAKE BUT NO RESPONSE TO VERBAL COMMAND.ON TRACH VENT,WITH FIO2=30%.WITH GOOD SATURATION.ON CONTACT ISOLATION PRECAUTION.RIGHT UPPER ARM PICC LINE NS TO TKO.TUBE FEEDS ON GOING. STEWART DRAINING TO YELLOW CLOUDY URINE. CONTINUE TO MONITOR.ON MODIFIED CODE.NO CHEST COMPRESSION.
[2021-08-26 07:31] LABS: BASOPHILS # (AUTO) 0.1 K/uL (0.0-0.2); BASOPHILS % (AUTO) 2.9 % (0.0-2.0); EOSINOPHILS # (AUTO) 0.5 K/uL (0.0-0.4); EOSINOPHILS % (AUTO) 12.9 % (0.0-4.0); HEMATOCRIT 25.4 % (36-54); HEMOGLOBIN 8.2 g/dL (14.0-18.0); LYMPHOCYTES # (AUTO) 0.7 K/uL (1.0-5.5); LYMPHOCYTES % (AUTO) 18.2 % (20.5-51.5); MEAN CORPUSCULAR HEMOGLOBIN 29 pg (27-31); MEAN CORPUSCULAR HGB CONC 33 % (32-36); MEAN CORPUSCULAR VOLUME 88 fL (79.0-98.0); MONOCYTES # (AUTO) 0.3 K/uL (0.0-1.0); MONOCYTES % (AUTO) 6.8 % (1.7-9.3); NEUTROPHILS # (AUTO) 2.3 K/uL (1.8-7.7); NEUTROPHILS % (AUTO) 59.2 % (40.0-70.0); PLATELET COUNT (AUTO) 331 K/uL (130-430); RED BLOOD CELL COUNT(AUTO) 2.89 MIL/uL (4.2-6.2); RED CELL DISTRIBUTION WIDTH 18.9 % (9.0-15.0); WHITE BLOOD COUNT (AUTO) 3.9 K/uL (4.8-10.8)
[2021-08-26 07:49] LABS: ALANINE AMINOTRANSFERASE 10 U/L (12-78); ALBUMIN 2.1 g/dL (3.4-4.8); ANION GAP 5 (5-15); ASPARTATE AMINOTRANSFERASE 28 U/L (10-37); CALCIUM 9.9 mg/dL (8.4-11.0); CHLORIDE 105 mmol/L (98-107); CREATININE 0.76 mg/dL (0.55-1.30); GLUCOSE 91 mg/dL (70-99); POTASSIUM 3.7 mmol/L (3.5-5.1); SODIUM SERUM 142 mmol/L (136-145); TOTAL BILIRUBIN 0.3 mg/dL (0.0-1.0); UREA NITROGEN, BLOOD 30 mg/dL (8-21)
--- NOTE | 2021-08-26 08:15 | NUR ---
VENT TO CPAP: WEANING PARAMETER.RT PUT PATIENT TO CPAP ORDERED.STABLE.
--- NOTE | 2021-08-26 08:15 | NUR ---
RT NOTES Pt is awake, not following commands. Per daily cpap trial, vent to CPAP 5 PS 10. No adverse reactions noted. Will monitor pt. Rn notified.
[2021-08-26] MEDS: BALSAM PERU/CASTOR OIL 56.7 GM OINT...G. TP SCH (09:00)
[2021-08-26] MEDS: levETIRAcetam 500 MG in NS 100 ML IV SCH ×2 (09:34→21:17)
[2021-08-26] MEDS: FUROSEMIDE 40 MG/4 ML VIAL IVP SCH ×2 (09:38→21:18)
[2021-08-26] MEDS: FINASTERIDE 5 MG TABLET (PROSCAR) GT SCH (09:38)
[2021-08-26] MEDS: PANTOPRAZOLE SODIUM 40 MG/VIAL (PROTONIX) IVP SCH (09:38)
[2021-08-26] MEDS: CYANOCOBALAMIN 1000 mCg TABLET GT SCH (09:39)
[2021-08-26] MEDS: DOXAZOSIN MESYLATE 2 MG TABLET GT SCH (09:39)
[2021-08-26] MEDS: CITALOPRAM HYDROBROMIDE 20 MG TABLET GT SCH (09:40)
[2021-08-26] MEDS: LACTOBACILLUS RHAMNOSUS GG 1 CAP CAPSULE GT SCH (09:40)
[2021-08-26] MEDS: AMIODARONE HCL 200 MG TABLET NG SCH (09:41)
[2021-08-26] MEDS: POTASSIUM CHLORIDE 20 MEQ TAB.PRT.SR PO SCH (09:41)
--- NOTE | 2021-08-26 11:40 | NUR ---
RT NOTES Unable to do weaning parameters due to pt does not follow commands.
--- NOTE | 2021-08-26 15:20 | NUR ---
BACK TO AC VENT: PT RESPIRATORY RATE DOWN TO 11,RT PUT PATIENT BACK TO VENT AC=12,WD=603,P=5,FIO2=30%. STABLE.
--- NOTE | 2021-08-26 15:20 | NUR ---
RT NOTES Vent back to AC, respiratory effort are diminished. Rn aware.
[2021-08-26] MEDS: GABAPENTIN 300 MG CAPSULE GT SCH (17:31)
--- NOTE | 2021-08-26 19:10 | NUR ---
END OF SHIFT: ENDORSED TO NIGHT NURSE,PT IN STABLE CONDITION.
[2021-08-27] VITALS (31 sets, daily range): BP systolic 105–130
[2021-08-27] MEDS: NORMAL SALINE 5 ML DISP.SYRIN IVF SCH ×3 (05:45→20:38)
[2021-08-27 06:49] LABS: EOSINOPHILS # (AUTO) 0.4 K/uL (0.0-0.4); EOSINOPHILS % (AUTO) 9.7 % (0.0-4.0); HEMATOCRIT 25.2 % (36-54); HEMOGLOBIN 8.3 g/dL (14.0-18.0); LYMPHOCYTES # (AUTO) 0.7 K/uL (1.0-5.5); LYMPHOCYTES % (AUTO) 16.9 % (20.5-51.5); MEAN CORPUSCULAR HEMOGLOBIN 29 pg (27-31); MEAN CORPUSCULAR HGB CONC 33 % (32-36); MEAN CORPUSCULAR VOLUME 88 fL (79.0-98.0); MONOCYTES # (AUTO) 0.3 K/uL (0.0-1.0); MONOCYTES % (AUTO) 6.7 % (1.7-9.3); PLATELET COUNT (AUTO) 335 K/uL (130-430); RED BLOOD CELL COUNT(AUTO) 2.88 MIL/uL (4.2-6.2); RED CELL DISTRIBUTION WIDTH 19.3 % (9.0-15.0); WHITE BLOOD COUNT (AUTO) 4.4 K/uL (4.8-10.8)
--- NOTE | 2021-08-27 07:14 | NUR ---
RECEIVED PT FROM RAYMUNDO WEBSTER. PT IS AAOX1 TO SELF, INTUBATED, FOLLOW COMMANDS. R PUPIL 2MM, LEFT PUPIL 3-4MM, SLUGGISH. TELE [address] READING PACED, HR 71. RESP E/U. LUNG SOUNDS CTA. ETT TO VENT VC TV 450, RR 12, FIO2 305, PEEP 5. NO RESP DISTRESS NOTED. ABDOMEN SOFT, NONTENDER, ROUND, MILD DISTENTION. BOWEL SOUNDS ACTIVE X4. NO S/S OF N/V/D/C. T/F VITAL AF RUNNING AT 45ML/HOUR. DISTAL PULSE MODERATE, SKIN WARM. BUE 2 + PITTING EDEMA. MICH PICC LINE 2 LUMENS FLUSHED, PATENT. DRESSING CDI. SITE WNL. ASPIRATION PRECAUTIONS IN PLACE. CONTACT PRECAUTIONS IN PLACE FOR MRSA NARES AND ECOLI IN URINE. NO S/S OF PAIN OR DISCOMFORT NOTED.
[2021-08-27 07:52] LABS: ALANINE AMINOTRANSFERASE 10 U/L (12-78); ALBUMIN 2.2 g/dL (3.4-4.8); ANION GAP 8 (5-15); ASPARTATE AMINOTRANSFERASE 22 U/L (10-37); CALCIUM 9.8 mg/dL (8.4-11.0); CHLORIDE 105 mmol/L (98-107); CREATININE 0.86 mg/dL (0.55-1.30); GLUCOSE 85 mg/dL (70-99); POTASSIUM 3.4 mmol/L (3.5-5.1); SODIUM SERUM 144 mmol/L (136-145); TOTAL BILIRUBIN 0.2 mg/dL (0.0-1.0); UREA NITROGEN, BLOOD 29 mg/dL (8-21)
[2021-08-27] MEDS: BALSAM PERU/CASTOR OIL 56.7 GM OINT...G. TP SCH (08:08)
[2021-08-27] MEDS: LACTOBACILLUS RHAMNOSUS GG 1 CAP CAPSULE GT SCH (08:09)
[2021-08-27] MEDS: AMIODARONE HCL 200 MG TABLET NG SCH (08:09)
[2021-08-27] MEDS: POTASSIUM CHLORIDE 20 MEQ TAB.PRT.SR PO SCH (08:10)
[2021-08-27] MEDS: CITALOPRAM HYDROBROMIDE 20 MG TABLET GT SCH (08:10)
[2021-08-27] MEDS: ACETYLCYSTEINE 10% 4 ML VIAL (RT) INH SCH (08:11)
[2021-08-27] MEDS: ALBUTEROL SULFATE 0.083% 2.5 MG/3 ML VIAL.NEB INH SCH ×3 (08:12→19:45)
[2021-08-27] MEDS: PANTOPRAZOLE SODIUM 40 MG/VIAL (PROTONIX) IVP SCH (08:12)
[2021-08-27] MEDS: DOXAZOSIN MESYLATE 2 MG TABLET GT SCH (08:12)
[2021-08-27] MEDS: FINASTERIDE 5 MG TABLET (PROSCAR) GT SCH (08:13)
[2021-08-27] MEDS: FUROSEMIDE 40 MG/4 ML VIAL IVP SCH ×2 (08:13→20:38)
[2021-08-27] MEDS: levETIRAcetam 500 MG in NS 100 ML IV SCH ×2 (08:14→20:37)
[2021-08-27] MEDS: CYANOCOBALAMIN 1000 mCg TABLET GT SCH (08:14)
[2021-08-27] MEDS ORDERED: ACETYLCYSTEINE 10% 4 ML VIAL (RT) INH ONE (08:16)
[2021-08-27 08:51] LABS: BASOPHILS % (AUTO) 0.9 % (0.0-2.0); NEUTROPHILS # (AUTO) 2.9 K/uL (1.8-7.7); NEUTROPHILS % (AUTO) 65.8 % (40.0-70.0)
[2021-08-27 08:52] LABS: BASOPHILS # (AUTO) 0.1 K/uL (0.0-0.2)
--- NOTE | 2021-08-27 09:00 | NUR ---
DR. LAW AT BEDSIDE AND REQUESTED TO SPEAK TO PT'S DAUGHTER TO CLARIFY POC. LEFT MESSAGE WITH TONY AWAITING CALL BACK.
--- NOTE | 2021-08-27 13:00 | NUR ---
DR. ALAMO STATED HE LEFT MESSAGE WITH PT. AWAITING CALL BACK.
--- NOTE | 2021-08-27 14:13 | NUR ---
DR. ARELLANO SPOKE WITH PT'S DAUGHTER REGARDING NEURO STATUS. HE ORDERED CT SCAN OF BRAIN. PT S/L AND TAKEN FOR SCAN AT THIS TIME.
--- NOTE | 2021-08-27 14:40 | NUR ---
PT NOT TAKEN TO CT, NO NURSE AVAILABLE TO ASSIST AT THIS TIME.
--- NOTE | 2021-08-27 16:20 | NUR ---
Social Service Notes LOG TRUCK DRIVER called and spoke to pts. daughter, ,m who stated she is unhappy with the level of care given to her father. Dtr. wants pt. transferred to [facility] and is requesting asistance. Dtr. was in conversations with Dr. Núñez's nurse at [facility]. Dtr. mentioned speaking to CM. Castro who informed Dtr. that no facilities are doing transfers at this time. Dt. stated the neurologist told Dtr. that pt. is having issues with his kidney and has sepsis. Dtr. stated no other doctors have stated this. This is causing great concern for her. Dtr. stated she is still waiting to speak to the infectious disease doctor, Dr. Kilpatrick. LOG TRUCK DRIVER called RnDanae in ICU and asked to request Dr. Kilpatrick try to contact Dtr. once again. LOG TRUCK DRIVER will remain available as needed.
[2021-08-27] MEDS: GABAPENTIN 300 MG CAPSULE GT SCH (18:50)
--- NOTE | 2021-08-27 19:47 | NUR ---
ENDORSED ALL CARE TO RAYMUNDO WEBSTER.
[2021-08-28] VITALS (28 sets, daily range): BP systolic 94–126
[2021-08-28] MEDS: NORMAL SALINE 5 ML DISP.SYRIN IVF SCH ×2 (05:36→13:38)
--- NOTE | 2021-08-28 06:34 | NUR ---
0030 DAUGHTER VISITED ADVICED TO COME IN AM JOSHUA MAHONEY SPEAK WITH HER REGARDING PLAN OF CARE RESPIRATORY CARTER. SHE SAID SHES AVAILABLE TO CALL ANYTIME.
--- NOTE | 2021-08-28 07:25 | NUR ---
Opening Received report on pt. Pt intubated on ventilator, no signs of pain or distress. Opens eyes to voice, not clear if pt follows commands or tracks eye movement. PICC line with IVF tko. GT with tube feeding. Powell in place draining urine to gravity.
[2021-08-28] MEDS: PANTOPRAZOLE SODIUM 40 MG/VIAL (PROTONIX) IVP SCH (08:21)
[2021-08-28] MEDS: LACTOBACILLUS RHAMNOSUS GG 1 CAP CAPSULE GT SCH (08:23)
[2021-08-28] MEDS: FUROSEMIDE 40 MG/4 ML VIAL IVP SCH ×2 (08:23→20:14)
[2021-08-28] MEDS: CITALOPRAM HYDROBROMIDE 20 MG TABLET GT SCH (08:23)
[2021-08-28] MEDS: DOXAZOSIN MESYLATE 2 MG TABLET GT SCH (08:24)
[2021-08-28] MEDS: POTASSIUM CHLORIDE 20 MEQ TAB.PRT.SR PO SCH (08:24)
[2021-08-28] MEDS: AMIODARONE HCL 200 MG TABLET NG SCH (08:24)
[2021-08-28] MEDS: BALSAM PERU/CASTOR OIL 56.7 GM OINT...G. TP SCH (08:25)
[2021-08-28] MEDS: FINASTERIDE 5 MG TABLET (PROSCAR) GT SCH (08:27)
[2021-08-28] MEDS: levETIRAcetam 500 MG in NS 100 ML IV SCH ×2 (08:27→20:13)
[2021-08-28] MEDS: CYANOCOBALAMIN 1000 mCg TABLET GT SCH (08:27)
[2021-08-28 09:17] LABS: BASOPHILS # (AUTO) 0.1 K/uL (0.0-0.2); BASOPHILS % (AUTO) 1.2 % (0.0-2.0); EOSINOPHILS # (AUTO) 0.3 K/uL (0.0-0.4); EOSINOPHILS % (AUTO) 6.7 % (0.0-4.0); HEMATOCRIT 25.8 % (36-54); HEMOGLOBIN 8.3 g/dL (14.0-18.0); LYMPHOCYTES # (AUTO) 0.7 K/uL (1.0-5.5); LYMPHOCYTES % (AUTO) 15.7 % (20.5-51.5); MEAN CORPUSCULAR HEMOGLOBIN 29 pg (27-31); MEAN CORPUSCULAR HGB CONC 32 % (32-36); MEAN CORPUSCULAR VOLUME 88 fL (79.0-98.0); MONOCYTES # (AUTO) 0.3 K/uL (0.0-1.0); MONOCYTES % (AUTO) 6.6 % (1.7-9.3); NEUTROPHILS # (AUTO) 3.3 K/uL (1.8-7.7); NEUTROPHILS % (AUTO) 69.8 % (40.0-70.0); PLATELET COUNT (AUTO) 302 K/uL (130-430); RED BLOOD CELL COUNT(AUTO) 2.92 MIL/uL (4.2-6.2); RED CELL DISTRIBUTION WIDTH 19.7 % (9.0-15.0); WHITE BLOOD COUNT (AUTO) 4.8 K/uL (4.8-10.8)
[2021-08-28 09:46] LABS: ALANINE AMINOTRANSFERASE 9 U/L (12-78); ALBUMIN 2.2 g/dL (3.4-4.8); ANION GAP 8 (5-15); ASPARTATE AMINOTRANSFERASE 17 U/L (10-37); CHLORIDE 107 mmol/L (98-107); CREATININE 1.01 mg/dL (0.55-1.30); GLUCOSE 95 mg/dL (70-99); POTASSIUM 3.7 mmol/L (3.5-5.1); SODIUM SERUM 145 mmol/L (136-145); TOTAL BILIRUBIN 0.2 mg/dL (0.0-1.0); UREA NITROGEN, BLOOD 31 mg/dL (8-21)
--- NOTE | 2021-08-28 10:45 | NUR ---
Pt's daughter Brii at bedside with pt. Brii states she received update from Dr. Ortiz earlier this morning.
[2021-08-28] MEDS: ALBUTEROL SULFATE 0.083% 2.5 MG/3 ML VIAL.NEB INH SCH ×3 (12:11→19:00)
[2021-08-28] MEDS: ACETYLCYSTEINE 10% 4 ML VIAL (RT) INH SCH (12:11)
--- NOTE | 2021-08-28 13:00 | NUR ---
Dr. Mendes rounding on pt and discussed plan of care with pt's daughter Brii. Dr. Mendes states pt extubation for tomorrow per daughter's request and states daughter is aware about pt's potential complication with protecting airway and need for frequent suctioning. Daughter states understanding.
--- NOTE | 2021-08-28 17:27 | NUR ---
1726 PT PLACED BACK TO AC. FONSECA AWARE. Addendum: 08/28/21 at 1727 by Dena Pierre RT Amended: Links added.
[2021-08-28] MEDS: GABAPENTIN 300 MG CAPSULE GT SCH (17:43)
[2021-08-29] VITALS (28 sets, daily range): BP systolic 107–139
[2021-08-29] MEDS: NORMAL SALINE 5 ML DISP.SYRIN IVF SCH ×4 (02:00→21:09)
--- NOTE | 2021-08-29 06:55 | NUR ---
ALL CARES DONE, DAUGHTER VISITED LAST NIGHT. FOR EXTUBATION IN AM. CHG BATH AND LINEN CHNAGED DONE, VSS AFEBRILE, CONT CARE.
--- NOTE | 2021-08-29 07:15 | NUR ---
Opening notes Received report from endorsing production supervisor off shift RN for continuity of care. Patient lying on bed with IVF NS @ 5 mL/hr and a tube feeding vital AF 1.2 @ 45. Vent setting AC rate 12, tidal volume 500, FiO2 30%, and peep 5. Powell catheter in place, draining to gravity. Vital sign blood pressure 116/68, pulse rate 75, respiration 18, and SPO2 100%. Bed locked and in lowest position. Fall and safety precaution in place.
[2021-08-29 07:42] LABS: BASOPHILS # (AUTO) 0.1 K/uL (0.0-0.2); BASOPHILS % (AUTO) 1.2 % (0.0-2.0); EOSINOPHILS # (AUTO) 0.2 K/uL (0.0-0.4); HEMATOCRIT 25.1 % (36-54); HEMOGLOBIN 8.3 g/dL (14.0-18.0); LYMPHOCYTES # (AUTO) 0.8 K/uL (1.0-5.5); LYMPHOCYTES % (AUTO) 14.2 % (20.5-51.5); MEAN CORPUSCULAR HEMOGLOBIN 28 pg (27-31); MEAN CORPUSCULAR HGB CONC 33 % (32-36); MEAN CORPUSCULAR VOLUME 86 fL (79.0-98.0); MONOCYTES # (AUTO) 0.5 K/uL (0.0-1.0); MONOCYTES % (AUTO) 8.3 % (1.7-9.3); NEUTROPHILS # (AUTO) 4.1 K/uL (1.8-7.7); NEUTROPHILS % (AUTO) 72.3 % (40.0-70.0); PLATELET COUNT (AUTO) 312 K/uL (130-430); RED BLOOD CELL COUNT(AUTO) 2.92 MIL/uL (4.2-6.2); RED CELL DISTRIBUTION WIDTH 19.3 % (9.0-15.0); WHITE BLOOD COUNT (AUTO) 5.7 K/uL (4.8-10.8)
[2021-08-29 08:15] LABS: ALANINE AMINOTRANSFERASE 8 U/L (12-78); ALBUMIN 2.2 g/dL (3.4-4.8); ANION GAP 7 (5-15); ASPARTATE AMINOTRANSFERASE 14 U/L (10-37); CALCIUM 9.9 mg/dL (8.4-11.0); CHLORIDE 107 mmol/L (98-107); CREATININE 1.16 mg/dL (0.55-1.30); GLUCOSE 86 mg/dL (70-99); POTASSIUM 3.4 mmol/L (3.5-5.1); SODIUM SERUM 146 mmol/L (136-145); TOTAL BILIRUBIN 0.3 mg/dL (0.0-1.0); UREA NITROGEN, BLOOD 31 mg/dL (8-21)
[2021-08-29] MEDS: PANTOPRAZOLE SODIUM 40 MG/VIAL (PROTONIX) IVP SCH (08:37)
[2021-08-29] MEDS: FUROSEMIDE 40 MG/4 ML VIAL IVP SCH ×2 (08:38→20:28)
[2021-08-29] MEDS: LACTOBACILLUS RHAMNOSUS GG 1 CAP CAPSULE GT SCH (08:39)
[2021-08-29] MEDS: POTASSIUM CHLORIDE 20 MEQ TAB.PRT.SR PO SCH (08:39)
[2021-08-29] MEDS: AMIODARONE HCL 200 MG TABLET NG SCH (08:40)
[2021-08-29] MEDS: CITALOPRAM HYDROBROMIDE 20 MG TABLET GT SCH (08:40)
[2021-08-29] MEDS: DOXAZOSIN MESYLATE 2 MG TABLET GT SCH (08:41)
[2021-08-29] MEDS: CYANOCOBALAMIN 1000 mCg TABLET GT SCH (08:43)
[2021-08-29] MEDS: levETIRAcetam 500 MG in NS 100 ML IV SCH ×2 (08:45→20:27)
[2021-08-29] MEDS: FINASTERIDE 5 MG TABLET (PROSCAR) GT SCH (08:46)
[2021-08-29] MEDS: ALBUTEROL SULFATE 0.083% 2.5 MG/3 ML VIAL.NEB INH SCH ×3 (10:14→20:26)
[2021-08-29] MEDS: ACETYLCYSTEINE 10% 4 ML VIAL (RT) INH SCH (10:14)
--- NOTE | 2021-08-29 10:16 | NUR ---
Dr. Gaitan at bedside assessing the patient. Gave verbal updates.
[2021-08-29] MEDS ORDERED: MORPHINE SULFATE IN 0.9 % NACL 100 ML IV PRN (12:45)
--- NOTE | 2021-08-29 13:56 | NUR ---
1224 PT. EXTUBATED PER DOCTOR ORDER AND PLACED ON 2L NC. SATURATION WAS AT 95%. WILL CONTINUE TO MONITOR. Addendum: 08/29/21 at 1358 by Dena Pierre RT Amended: Links added.
[2021-08-29] MEDS: BALSAM PERU/CASTOR OIL 56.7 GM OINT...G. TP SCH (16:46)
[2021-08-29] MEDS: GABAPENTIN 300 MG CAPSULE GT SCH (18:00)
[2021-08-30] VITALS (24 sets, daily range): BP systolic 109–141
[2021-08-30] MEDS: NORMAL SALINE 5 ML DISP.SYRIN IVF SCH ×3 (05:45→22:25)
--- NOTE | 2021-08-30 06:30 | NUR ---
0200 HAD DESATURATION TO 88% EVEN ORAL SUCTIONING DONE CALLED RT NRB AT 15L STARTED OXYMASK D/C VSS WITH ON AND OFF ARRYTHMIA ON TELE COULD BE PACEMAKER ARTIFACT OR MAL FUNCTION. AWAKE AND ALERT X1,REMAINS NON VERBAL VSS STABLE, AFEBRILE.. HAD 3 PATIENTS OUT OF RATIO NO ASSESSMENT DONE AFTER 4AM. ALL CARES DONE NO BM CHG BATH GIVEN TURNED AND REPOSITION TO COMFORT.
[2021-08-30] MEDS: ALBUTEROL SULFATE 0.083% 2.5 MG/3 ML VIAL.NEB INH SCH ×4 (07:12→20:02)
[2021-08-30] MEDS: ACETYLCYSTEINE 10% 4 ML VIAL (RT) INH SCH (07:12)
--- NOTE | 2021-08-30 09:00 | NUR ---
RN NOTES PT ON 15L NRB MASK, SPO2 GOOD. PACED RHYTHM ON THE MONITOR.
[2021-08-30] MEDS: PANTOPRAZOLE SODIUM 40 MG/VIAL (PROTONIX) IVP SCH (09:18)
[2021-08-30] MEDS: POTASSIUM CHLORIDE 20 MEQ TAB.PRT.SR PO SCH (09:19)
[2021-08-30] MEDS: FUROSEMIDE 40 MG/4 ML VIAL IVP SCH ×2 (09:19→20:43)
[2021-08-30] MEDS: CITALOPRAM HYDROBROMIDE 20 MG TABLET GT SCH (09:20)
[2021-08-30] MEDS: AMIODARONE HCL 200 MG TABLET NG SCH (09:21)
[2021-08-30] MEDS: DOXAZOSIN MESYLATE 2 MG TABLET GT SCH (09:22)
[2021-08-30] MEDS: BALSAM PERU/CASTOR OIL 56.7 GM OINT...G. TP SCH (09:23)
[2021-08-30] MEDS: LACTOBACILLUS RHAMNOSUS GG 1 CAP CAPSULE GT SCH (09:24)
[2021-08-30] MEDS: FINASTERIDE 5 MG TABLET (PROSCAR) GT SCH (09:44)
[2021-08-30] MEDS: CYANOCOBALAMIN 1000 mCg TABLET GT SCH (09:44)
[2021-08-30] MEDS: levETIRAcetam 500 MG in NS 100 ML IV SCH ×2 (10:08→20:42)
--- NOTE | 2021-08-30 11:56 | NUR ---
RT NOTES PULSELESS VTACH, RN CONFIRMED PT IS FULL CODE, CPR WAS STARTED, PT WAS BAGGED W/ 100% O2 VIA RESUS. BAG TO FACE MASK. @1202 DAUGHTER ARRIVED AND ASKED TO STOP EVERYTHING, AGONAL BREATHS NOTED, PLACED PT ON 10L SMK.
--- NOTE | 2021-08-30 12:00 | NUR ---
RN NOTES CPR IN PROGRESS. DAUGHTER CAME IN AND STOP THE CODE. DR. DEGROOT, ER/MD SPOKE TO DAUGHTER AND AGREED TO COMFORT MEASURES, WILL START PATIENT ON MORPHINE DRIP FOR PT COMFORT.
[2021-08-30] MEDS ORDERED: MORPHINE SULFATE IN 0.9 % NACL 100 ML IV ONE (12:08)
[2021-08-30] MEDS ORDERED: MORPHINE SULFATE IN 0.9 % NACL 100 ML IV PRN (12:15)
--- NOTE | 2021-08-30 12:23 | NUR ---
PAGED FOR ORDERS DIALED: [phone] SPOKE TO:NELLIE
--- NOTE | 2021-08-30 12:40 | NUR ---
RT NOTES Pt's dtr requested for NT suction, asked to stop when she saw blood in secretions.
--- NOTE | 2021-08-30 14:37 | NUR ---
Daughter requested I speak with her concerning transfer to [facility]. She would like her father to be transferred to [facility] under the care of Neuro Environmental Law Professor Dr Rubio- She is not happy with her father's care at [facility]. She stated he is not being turned and suctioned regularly, she has not been able to speak to his MDs when she has tried to reach them and she is not happy with the information she has received from the neurologist here. While we were talking, she was informed her father was having a Code Blue and she left to go to his bedside. I spoke to her later at the patient's bedside and she did not request transfer to [facility] at this time.
--- NOTE | 2021-08-30 18:00 | NUR ---
RN NOTES STILL ON 15L NRB MASK, MORPHINE DRIP INFUSING AT 2MG/HR.
[2021-08-30] MEDS: GABAPENTIN 300 MG CAPSULE GT SCH (18:54)
[2021-08-30] MEDS: PIPERACILLIN/TAZO 2.25G/DEX-IS 50 ML IV SCH (18:55)
[2021-08-31] VITALS (22 sets, daily range): BP systolic 91–134
[2021-08-31] MEDS: PIPERACILLIN/TAZO 2.25G/DEX-IS 50 ML IV SCH ×5 (00:02→22:41)
[2021-08-31] MEDS: NORMAL SALINE 5 ML DISP.SYRIN IVF SCH ×3 (06:25→22:41)
--- NOTE | 2021-08-31 06:38 | NUR ---
ALL CARES DONE, UNEVENTFUL NIGHT MORPHINE INCREASED TO 3MG HAD COUPLES OF PVC'S AND ARTIFACT RYTHMN HR GOES TO 54 BUT NOT SUSTAINING.BP STABLE,AFEBRILE. DAUGHTER IN AND OUT FOR VISIT SHE PUT HER CP ON FACETIME FACING HER DAD FACED CAMERA IS ON AND PUT IT DOWN AND ABORTED VIDEO CAMERA, DAUGHTER CAME BACK BRYCE WASSERMAN EXPLAIN TO HER NO CAMERA ALLOWED AND SHE TOOK IT OFF AND LEFT THE UNIT. CAME BACK AROUND 3AM.
--- NOTE | 2021-08-31 08:15 | NUR ---
RT NOTES Pt's dtr asked if pt was nasally suctioned, explained "no" due to her "freaking out" yesterday when she saw blood in secretion and asked RT to stop. Pt's dtr asked to do NTS at this time in which pt tolerated well. Sx moderate amount of thick yellow/bloody secretion.
[2021-08-31] MEDS: ALBUTEROL SULFATE 0.083% 2.5 MG/3 ML VIAL.NEB INH SCH ×4 (08:23→19:50)
[2021-08-31] MEDS: ACETYLCYSTEINE 10% 4 ML VIAL (RT) INH SCH (08:23)
[2021-08-31] MEDS: LACTOBACILLUS RHAMNOSUS GG 1 CAP CAPSULE GT SCH (09:01)
[2021-08-31] MEDS: PANTOPRAZOLE SODIUM 40 MG/VIAL (PROTONIX) IVP SCH (09:01)
[2021-08-31] MEDS: POTASSIUM CHLORIDE 20 MEQ TAB.PRT.SR PO SCH (09:02)
[2021-08-31] MEDS: AMIODARONE HCL 200 MG TABLET NG SCH (09:03)
[2021-08-31] MEDS: CITALOPRAM HYDROBROMIDE 20 MG TABLET GT SCH (09:04)
[2021-08-31] MEDS: FUROSEMIDE 40 MG/4 ML VIAL IVP SCH ×2 (09:04→20:26)
[2021-08-31] MEDS: DOXAZOSIN MESYLATE 2 MG TABLET GT SCH (09:05)
[2021-08-31] MEDS: FINASTERIDE 5 MG TABLET (PROSCAR) GT SCH (09:06)
[2021-08-31] MEDS: CYANOCOBALAMIN 1000 mCg TABLET GT SCH (09:06)
[2021-08-31] MEDS: BALSAM PERU/CASTOR OIL 56.7 GM OINT...G. TP SCH (09:06)
[2021-08-31] MEDS: levETIRAcetam 500 MG in NS 100 ML IV SCH ×2 (09:08→20:25)
--- NOTE | 2021-08-31 11:01 | NUR ---
PAGED FOR ORDERS SPOKE TO: SAMI
--- NOTE | 2021-08-31 12:17 | NUR ---
PAGED ORDERING PHYSICIAN: REASON FOR CONSULT: PACEMAKER WITH PVC DIALED: [phone] SPOKE TO: ORESTES
--- NOTE | 2021-08-31 13:40 | NUR ---
Spoke to Betzaida at [facility] transfer center. I tried to explain to her the patient had an order to transfer to [facility] for neurology evaluation, she interrupted me and stated, the hospital ER is on diversion, they cannot accept any patients for transfer. They have 25 patients holding in their ER for beds and 20 patients on a waiting list for transfers for higher level of care. They will not accept any requests for transfer at this time.
--- NOTE | 2021-08-31 14:32 | NUR ---
patient daughter wanted to speak to Dr nelson for the code status of the patient and wanting to have cardilogy to chack the pacemaker. spoke to Dr. Nelson and received order to consult DR Gerard and to request transfer to [facility] per daughter. Daughter "Don" was talking to Dr Nelson on the phone for more than 30 minutes and stating all her wishes for her father. Told zePASS to call the number of [facility] to request for pacemaker interrogation. Tel number [phone]. The ICD model is [id number] and the serial number is [id number] the icd was first placed on jul 28, 2016. I spoke to lina Castro to facilitate and expedite transfer to [facility] but this hospital is not accepting transfer and I made the daughter aware, the daughter want [facility] instead and I called lina middleton and leave voice mail about the wish of the daughter. Daughter told me that she want to talk to the patient relation officer, I called and leave the voicemail. 1445 hrs heard daughter talking over the phone the patient relation officer.
--- NOTE | 2021-08-31 15:40 | NUR ---
[facility] PACEMAK[facility] [employer] SUPERINTENDENT CALLED AND SCHEDULED DIALED: [phone] SPOKE TO: TONY PACEMAKER [employer] SUPERINTENDENT: LUANA CHAN MODEL NUMBER: [id number] SERIAL #: [id number] TONY WAS ABLE TO SCHEDULE APPOINTMENT FOR [employer] SUPERINTENDENT TO COME AND EXAMINE PACEMAKER. ETA WAS WITHIN 24 HOURS OF CALL AND SCHEDULING.
--- NOTE | 2021-08-31 15:55 | NUR ---
Patient referred to [facility] [phone]- they need MD to refer patient-Dr Dawson notified to please call [facility] to refer the patient for transfer. Call placed to [facility]. Spoke to Tristen in admitting. He requested information be faxed to him to review for transfer [phone]
[2021-08-31] MEDS: GABAPENTIN 300 MG CAPSULE GT SCH (17:26)
[2021-09-01] VITALS (17 sets, daily range): BP systolic 83–106
[2021-09-01] MEDS: PIPERACILLIN/TAZO 2.25G/DEX-IS 50 ML IV SCH ×3 (05:27→18:00)
[2021-09-01] MEDS: NORMAL SALINE 5 ML DISP.SYRIN IVF SCH ×2 (05:28→15:25)
[2021-09-01] MEDS: ALBUTEROL SULFATE 0.083% 2.5 MG/3 ML VIAL.NEB INH SCH ×3 (07:21→15:19)
[2021-09-01] MEDS: ACETYLCYSTEINE 10% 4 ML VIAL (RT) INH SCH (07:21)
[2021-09-01] MEDS: DOXAZOSIN MESYLATE 2 MG TABLET GT SCH (08:29)
[2021-09-01] MEDS: CITALOPRAM HYDROBROMIDE 20 MG TABLET GT SCH (08:30)
[2021-09-01] MEDS: LACTOBACILLUS RHAMNOSUS GG 1 CAP CAPSULE GT SCH (08:30)
[2021-09-01] MEDS: levETIRAcetam 500 MG in NS 100 ML IV SCH (08:31)
[2021-09-01] MEDS: PANTOPRAZOLE SODIUM 40 MG/VIAL (PROTONIX) IVP SCH (08:32)
[2021-09-01] MEDS: POTASSIUM CHLORIDE 20 MEQ TAB.PRT.SR PO SCH (08:32)
[2021-09-01] MEDS: BALSAM PERU/CASTOR OIL 56.7 GM OINT...G. TP SCH (08:32)
[2021-09-01] MEDS: CYANOCOBALAMIN 1000 mCg TABLET GT SCH (08:34)
[2021-09-01] MEDS: FINASTERIDE 5 MG TABLET (PROSCAR) GT SCH (08:34)
[2021-09-01] MEDS: AMIODARONE HCL 200 MG TABLET NG SCH (08:35)
[2021-09-01] MEDS: FUROSEMIDE 40 MG/4 ML VIAL IVP SCH (08:35)
[2021-09-01] MEDS: ACETAMINOPHEN 500 MG TABLET GT PRN ×2 (09:06→09:12)
--- NOTE | 2021-09-01 09:36 | NUR ---
Spoke to Frida at [facility] [phone] in admitting- she stated they have no ICU beds-they cannot accept the patient for transfer.
--- NOTE | 2021-09-01 09:45 | NUR ---
RT NOTES Sterile NTS done, per dtr's request, sat did not improve. Dr Idania walls, aware of low saturation on NRM.
[2021-09-01] MEDS ORDERED: NALOXONE HCL 0.4 MG/ML AMP (NARCAN) IVP PRN (11:00)
[2021-09-01] MEDS ORDERED: MORPHINE 2 MG/ML INJ. SYRINGE IVP PRN ×2 (11:00→12:45)
[2021-09-01] MEDS ORDERED: fentaNYL CITRATE/PF 100 MCG/2 ML AMP IVP PRN (12:45)
[2021-09-01] MEDS ORDERED: NOREPINEPHRINE BITARTRATE 32 MG in NS 218 ML IV PRN (13:00)
--- NOTE | 2021-09-01 13:48 | NUR ---
Spoke w/Jose D at [facility] in the transfer center. She spoke w/esperanza LIU at [facility]-they have declined acceptance of the patient for transfer-they cannot accept ICU patients due to capacity in the ICU.
--- NOTE | 2021-09-01 15:05 | NUR ---
Nutrition F/U RD reviewed pt's current EMR record including diet Hx, physician notes, nursing notes, pertinent labs/meds/procedures, care trends, and care activity. Admitting Diagnosis: Hypoxia Medical History Comment: PMH: CAD, CVA, CHF, atrial fibrillation, BPH. SARS-CoV-2 Ag (Rapid) Negative (07/26) Pt is also admitted w/ sepsis, UTI, pneumonia, acute respiratory failure, leukocytosis, hyponatremia, CHARLY, hyperglycemia, lactic acid, transaminitis, hypoalbuminemia, protein calorie malnutrition, CHF, benign prostatic hypertrophy, dysphagia, s/p PEG. 08/23/21 MD notes: Cardiac arrest Subjective Information: RD bedside visit was deferred. RD called primary RN for update of code, per RN to continuing of care. RD update plan of TF rate adjustment and RN agreed. Per EMR review, pt remains sedated and intubated and CIPAP trials. Last BM noted on 08/27 x2, Omar scale: 10, wound on medial coccyx, PI on L. arm, present on admission. +2 pitting edema to bilateral arm per deputy program manager. EN rate: 45ml (08/22); GRV: 0ml. EN regimen remains adequate and appropriate. New weight updated with trending up (4.5% in 1mo), possibly due to fluid shift, weight change is not significant. Due to increased needs for acute metabolic status, may benefit from EN rate adjustment. Current Diet Order/Nutrition Support: Vital AF 1.2 at 45 ml/hr, Alfonzo BID, Free Water Flush: 150 ml Q6h via GT x20 days Pertinent Medications: Lasix, VIT B12, culturelle, zofran, dulcolax, colace, k-dur, protonix, MOM Pertinent Labs: (08/29) Na: 146 H, K 3.4L, BUN: 31H, Alb: 2.2L Height (Feet) 6 feet Height (Inches) 1.00 inches Weight (Pounds) 178 pounds (07/28), 186lbs (08/25) Patient Weight 80.739 kg, 84.5 kg Body Mass Index 24.6 kg/m2 NEW Estimated Energy Expenditure (kcals/day) 2034 kcal (PSU 2010b d/t critical illness, intubated) NEW Estimated Protein Required (g/day) 101-127 (1.2-1.5 gm/kg CBW d/t acute state, wound healing) Estimated Fluid Required (l/day) Per MD d/t CHF, edema +2 Problem/Etiology/Signs/Symptoms Increased nutritional needs R/T metabolic demands AEB estimated nutritional requirements for acute. *ongoing Expected Outcomes/Goals - Monitor TF tolerance & intakes w/ goal of pt meeting >80% of estimated nutritional needs, labs trending WNL, normal GI function, and skin integrity/wt maintenance. Dietitian Recommendations * Vital AF 1.2 at 50 ml/hr, Alfonzo BID, Free Water Flush: 150 ml Q6h via GT Provides: 1600 kcal/day, 95 gm protein/day, and 1476 ml free water/day Meets: 79% of estimated calorie needs and 75% of lower end of estimated protein needs. Follow Up High Risk: F/U in 2-3 days
--- NOTE | 2021-09-01 15:06 | NUR ---
Dietitian Recommendations * Vital AF 1.2 at 50 ml/hr, Alfonzo BID, Free Water Flush: 150 ml Q6h via GT Provides: 1600 kcal/day, 95 gm protein/day, and 1476 ml free water/day Meets: 79% of estimated calorie needs and 75% of lower end of estimated protein needs. Please refer to nutrition assessment for details.
--- NOTE | 2021-09-01 15:08 | NUR ---
patient has been desatting on 70-80's and Dr Emerson is at bedside talking to patient this morning about the code status and that patient is very poor prognosis, daughter continue to refused Trach, intubation and CPR incase patient is pulseless. patient is already on 15 liters non rebreather mask and satting only between 70-80. Patient bp was low then started levophed drip and bp become stable. Patient is using accesory muscles and very dyspneic but patient daughter still on her selective treatment per POLST and code status inside the patient chart.
--- NOTE | 2021-09-01 17:44 | NUR ---
RT NOTES 1744 responded to code blue, modified code status, ER dr at bedside. [address] Covington.
--- NOTE | 2021-09-01 17:50 | NUR ---
Called pts daughter Brii to inform her that her father is coding and we are giving medications as instructed by advanced directive she made. She said yes I want drugs given, please do that. I asked her if she wanted us to stop and she said no, she is coming right now to the hospital and "if he passes away, he passes away". MATHIEU STAFFORD notified of the conversation during the code.
[2021-09-01] MEDS: GABAPENTIN 300 MG CAPSULE GT SCH (18:00)
--- NOTE | 2021-09-01 18:19 | NUR ---
174 called code blue patient is pulseless. DR. Covington from ER runs the code. Patient pronounced by Dr Covington at 1807 hrs. Daughter was called by Danae charged nurse and aware.
--- NOTE | 2021-09-01 20:20 | NUR ---
Received report and assumed care. Barrel Lathe Operator Inside's office contacted; not a computer information systems instructor's case as per commercial representative Sandra.
--- NOTE | 2021-09-01 20:20 | NUR ---
Contacted Senior Controls Analyst's office, spoke with agent Sandra. Patient is not a platform worker's case as per Senior Controls Analyst's office graphic art sales representative Sandra.
--- NOTE | 2021-09-02 10:13 | NUR ---
Psychology Lecturer INSPECTOR OPEN DIE received a call from Det. Matty, , [place], calling re. an APS report. Pts. daughter filed on behalf on pt. INSPECTOR OPEN DIE notified Det. that pt. passed on 09/01. Pt has Sepsis and Pneumonia. Det. stated she had a chance to meet with pts. Dtr who had stated she is a vet in [place]. Det had some concerns one being Det found out dtr. is not a vet, but a vet aid and the address she gave was in [facility]. Det stated she will be closing this case. INSPECTOR OPEN DIE will remain available as needed.
== END 2021-09-01 18:07 | DRG 870 ==
LOC: SED 17:43 → SIC 20:34
PROVIDERS: ADMIT Internal Medicine Hospice and Palliative Medicine; ATTEND Internal Medicine Hospice and Palliative Medicine
PROC: 5A1955Z Respiratory Ventilation, Greater than 96 Consecutive Hours (ICD-10-PCS; principal; 2021-07-28)
PROC: 5A09357 Assistance with Respiratory Ventilation, Less than 24 Consecutive Hours, Continuous Positive Airway Pressure (ICD-10-PCS; 2021-07-28)
PROC: 0BH17EZ Insertion of Endotracheal Airway into Trachea, Via Natural or Artificial Opening (ICD-10-PCS; 2021-07-28)
PROC: 02HV33Z Insertion of Infusion Device into Superior Vena Cava, Percutaneous Approach (ICD-10-PCS; 2021-07-30)
PROC: B548ZZA Ultrasonography of Superior Vena Cava, Guidance (ICD-10-PCS; 2021-07-30)
PROC: 0BH17EZ Insertion of Endotracheal Airway into Trachea, Via Natural or Artificial Opening (ICD-10-PCS; 2021-08-18)
DX: A41.9 Sepsis, unspecified organism (principal); E43 Unspecified severe protein-calorie malnutrition; G93.41 Metabolic encephalopathy; I63.9 Cerebral infarction, unspecified; J15.212 Pneumonia due to Methicillin resistant Staphylococcus aureus; J69.0 Pneumonitis due to inhalation of food and vomit; J96.01 Acute respiratory failure with hypoxia; R65.21 Severe sepsis with septic shock; E87.1 Hypo-osmolality and hyponatremia; G93.1 Anoxic brain damage, not elsewhere classified; I13.0 Hypertensive heart and chronic kidney disease with heart failure and stage 1 through stage 4 chronic kidney disease, or unspecified chronic kidney disease; I42.0 Dilated cardiomyopathy; N17.9 Acute kidney failure, unspecified; N39.0 Urinary tract infection, site not specified; Z99.11 Dependence on respirator [ventilator] status; I50.22 Chronic systolic (congestive) heart failure; Z66 Do not resuscitate; B95.2 Enterococcus as the cause of diseases classified elsewhere; B96.20 Unspecified Escherichia coli [E. coli] as the cause of diseases classified elsewhere; D64.9 Anemia, unspecified; I35.8 Other nonrheumatic aortic valve disorders; N18.9 Chronic kidney disease, unspecified; N40.0 Benign prostatic hyperplasia without lower urinary tract symptoms; R53.81 Other malaise; I46.9 Cardiac arrest, cause unspecified; E83.42 Hypomagnesemia; E83.39 Other disorders of phosphorus metabolism; R74.01 Elevation of levels of liver transaminase levels; R13.10 Dysphagia, unspecified; E88.09 Other disorders of plasma-protein metabolism, not elsewhere classified; R73.9 Hyperglycemia, unspecified; E86.0 Dehydration; Z20.822 Contact with and (suspected) exposure to COVID-19; I48.0 Paroxysmal atrial fibrillation; G40.909 Epilepsy, unspecified, not intractable, without status epilepticus; I25.10 Atherosclerotic heart disease of native coronary artery without angina pectoris; I25.2 Old myocardial infarction; Z79.01 Long term (current) use of anticoagulants; Z79.899 Other long term (current) drug therapy; Z93.1 Gastrostomy status; Z95.810 Presence of automatic (implantable) cardiac defibrillator; Z88.8 Allergy status to other drugs, medicaments and biological substances; Z68.24 Body mass index [BMI] 24.0-24.9, adult
CPT/HCPCS: 36415; 36600; 70450-TC; 70470-TC; 71045; 76376; 80048; 80053; 80061; 80202; 81000; 82150; 82803-TC; 82962; 83036; 83605; 83690; 83735; 83880; 84100; 84311; 84439; 84443; 84484; 85007; 85025; 85027; 85651-TC; 86140; 87040; 87070-TC; 87081; 87086; 87186-TC; 87205-TC; 93005; 93306; 94002; 94003; 94640; 94660; 94668; 94760; 95816; 96365; 96367; 99285; C9113; J0282; J0692; J1650; J1940; J1953; J2001; J2020; J2060; J2270; J2543; J2704; J3010; J3370; J3475; J3480; J3490; J7050; J7060; J7608; J7613; P9046